=== PATIENT | female | born 1955 | race Caucasian/White ===

== ENCOUNTER 2019-11-26 15:23 | Outpatient (CLI) | payer MEDICAID, SELFPAY ==
--- NOTE | 2019-11-26 15:30 | MM_ITS ---
WS: [id number] BILATERAL DIGITAL SCREENING MAMMOGRAPHY WITH CAD CLINICAL INFORMATION: screening HISTORY: Screening mammogram. No current complaints. COMPARISON: June 11, 2017 TECHNIQUE: Bilateral CC and MLO views. FINDINGS: The breasts are composed of heterogeneous fibroglandular density tissue, which can limit the detectio n of small underlying mass lesions. No suspicious mass, asymmetry, calcifications, or architectural d istortion. No evidence of malignancy. Stable benign punctate and lucent centered calcifications. MM/[place] [id number] IMPRESSION: BI-RADS: 2-Benign FOLLOW UP: 1 Year Follow-up Recommend return to annual screening mammography.
== END 2019-11-26 15:24 | disposition home or self-care (01) ==
LOC: RADSHAW 15:28
PROVIDERS: PCP Family Medicine; Visit Provider Obstetrics & Gynecology
DX: Z12.31 Encounter for screening mammogram for malignant neoplasm of breast (principal)
CPT/HCPCS: 77067

== ENCOUNTER 2020-04-14 15:26 | Outpatient (CLI) | payer MEDICARE, MEDICAID, SELFPAY ==
--- NOTE | 2020-04-14 | XR_ITS ---
WS: [id number] Bone mineral density performed on a [employer], 04/14/2020 Clinical data: POST MENOPAUSE Findings: The distal left radius measured bone mineral density 1.000 g/sq cm for a young adult score of 1.4 Agnieszka surement of the left hip reveals a bone mineral density of 0.895 g/cm2 with a young adult T score of -0.9. Measurement of the right hip reveals the bone mineral density of 0.785 g/cm2 for young adult T score of -1.8. XR/XR DEXA axial skeleton* [id number] Impression: 1. Normal bone mineral density of the distal left radius. 2. Normal left hip bone mineral density. 3. Osteopenia of the right hip.
== END 2020-04-14 15:27 | disposition home or self-care (01) ==
PROVIDERS: PCP Family Medicine; Visit Provider Nurse Practitioner Family
DX: Z78.0 Asymptomatic menopausal state (principal); M85.88 Other specified disorders of bone density and structure, other site
CPT/HCPCS: 77080

== ENCOUNTER 2020-06-21 12:06 | Observation (INO) | payer MEDICARE, MEDICAID, SELFPAY ==
[2020-06-21] VITALS (9 sets, daily range): BP systolic 120–148; BP diastolic 66–80; PULSE 58–67; RESP 16–20; TEMP 36.9–37.1; O2SAT 93–96; BMI 40.8
--- NOTE | 2020-06-21 12:42 | XRR_ITS ---
PROCEDURE INFORMATION: Exam: XR Chest, 1 View Exam date and time: 06/21/2020 1:06 PM Age: 64 years old Clinical indication: Chest pain; Type not specified; Additional info: Cp TECHNIQUE: Imaging protocol: XR of the chest Views: 1 view. COMPARISON: [facility] Chest 2 views 07/21/2018 11:44 AM FINDINGS: Lungs: There is stable mild interstitial prominence and hyperventilation consistent with COPD. Pleural space: Unremarkable. No pleural effusion. No pneumothorax. Heart/Mediastinum: There is stable mild cardiomegaly. Bones/joints: There are degenerative changes of the thoracic spine. No fracture. XR/XR chest 1V portable [id number] IMPRESSION: 1. Stable mild cardiomegaly and COPD. 2. No acute findings and no change from prior x-ray.
--- NOTE | 2020-06-21 12:42 | ECG_ITS ---
[facility] Test Date: 2020-06-21 Pat Name: Megan Botello Department: Room: Gender: Female Pot Puncher: : 1955 Requested By: Hailey Fletcher I Order Number: [id number] [place] MD: Yousif Wilburn M.D. Measurements Intervals [place] Rate: 61 P: 32 TN: 194 QRS: 0 QRSD: 97 T: 12 QT: 409 QTc: 412 Interpretive Statements SINUS RHYTHM Compared to ECG 07/13/2018 01:02:53 Myocardial infarct finding no longer present Electronically Signed On 06-21-2020 21:37:47 ORCHARD SPRAYER by Yousif Wilburn M.D. [email or web address]/store/[id number] f
[2020-06-21 12:59] LABS: Basophils # 0.1 10^3/uL (0.0-0.1); Basophils % 0.9 %; Eosinophils # 0.3 10^3/uL (0.0-0.8); Eosinophils % 3.4 %; Hematocrit 48.1 % (37.0-47.0); Hemoglobin 14.9 g/dL (11.5-15.3); Lymphocytes # 2.7 10^3/uL (0.8-4.8); Lymphocytes % 36.2 %; Mean Corpuscular Hemoglobin 31.2 pg (28.0-34.0); Mean Corpuscular Volume 100.6 fL (81-99); Mean Platelet Volume 10.5 fL (7.4-10.4); Monocytes # 0.7 10^3/uL (0.2-0.9); Monocytes % 8.8 %; Neutrophils # 3.78 10^3/uL (1.8-7.7); Neutrophils % 50.2 %; Nucleated Red Blood Cells % 0.4 %; Platelet Count 320 10^3/cmm (130-400); Red Blood Count 4.78 10^6/uL (4.1-5.3); Red Cell Distribution Width 14.2 % (12.1-15.1); White Blood Count 7.5 10^3/uL (4.0-10.0)
[2020-06-21] MEDS: ondansetron 2 mg/ML SDV 2 mL 4 MG IVP (13:14)
[2020-06-21] MEDS: aspirin 81 mg Chew Tablet 324 MG PO (13:14)
[2020-06-21 13:20] LABS: INR 1.66 (0.8-1.2)
[2020-06-21 13:28] LABS: Troponin(5th) Baseline 13 ng/L (0-10)
[2020-06-21 13:36] LABS: Alanine Aminotransferase 37 U/L (0-33); Albumin Level 3.6 g/dL (3.5-5.2); Alkaline Phosphatase 68 IU/L (35-105); Blood Urea Nitrogen 15 mg/dL (8-23); Calcium 8.9 mg/dL (8.5-10.5); Carbon Dioxide 25 mmol/L (22-29); Chloride 101 mmol/L (98-107); Creatinine Clr Calc Pharmacy 90.1837; Globulin 3.7 g/dL (1.3-4.6); Glucose 156 mg/dL (65-115); Lipase 22 U/L (13-60); NT Pro B Type Natriuretic Pept 118 pg/mL (0-125); Osmolality Calculated 288 mOsm/kg (285-295); Sodium 137 mmol/L (136-145); Total Bilirubin 0.3 mg/dL (0.15-1.2); Total Protein 7.3 g/dL (6.6-8.7)
--- NOTE | 2020-06-21 13:36 | W.ED.CHESTPA ---
HPI - Chest Pain General: Chief Complaint: Chest Pain Stated Complaint: CP Time Seen by Provider: 06/21/20 12:18 Source: patient and family (grand daughter) Mode of arrival: ambulatory Limitations: no limitations History of Present Illness: HPI narrative: The patient is a 64-year-old female who was doing chores and cooking at home when she developed a sudden onset of chest pain described as a squeezing sensation. She said it felt like her bra was squeezing her too tightly window she was not wearing her bra. Pain radiated to both jaws, neck, back between her shoulder blades. Symptoms have since resolved but she still has some nausea. She also had diaphoresis. Also had headache. She did not take any medicine and the pain resolved spontaneously. She is here to be evaluated. MD complaint: chest pain Onset (ago): hour(s) (1) Timing of current episode: now resolved Prior episodes: Yes Onset: during exertion Pain location: other (light a tight band round her chest) Pain radiation: back, neck and jaw/teeth Severity: severe Quality: tightness Relieving factors: rest Exacerbating factors: nothing Associated symptoms: Reports diaphoresis, dyspnea and nausea; Deny abdominal pain, fever(s), leg edema, palpitations, sense of impending doom, syncope or vomiting Treatment prior to arrival: none Review of Systems General: Reports: 10 or more systems reviewed and unremarkable except in HPI and below Const: Reports: diaphoresis; Denies: fever(s) Eyes: Denies: change in vision or blurry vision ENMT: Denies: throat pain, enlarged tonsils, odynophagia, hoarseness, mouth pain or swelling of lips/tongue Card: Denies: palpitations or syncope Resp: Reports: dyspnea GI: Reports: nausea; Denies: abdominal pain or vomiting : Denies: flank pain, difficulty voiding, dysuria, urinary frequency, urinary urgency or urinary hesitancy Musc: Denies: neck pain, back pain or extremity swelling Skin/Breast: Denies: rash, pruritus or erythema Neuro: Denies: headache(s), numbness in extremities or weakness in extremities Endo: Denies: polyuria, polydipsia or tired all the time [facility] ED PFSH: Medical History (Updated 06/21/20 @ 23:07 by Hailey Fletcher MD, [facility] [place]) Anticoagulation adequate with anticoagulant therapy Xarelto Atrial fibrillation Diabetes mellitus Dyslipidemia Essential hypertension No pertinent past medical history Seizures Statin intolerance Surgical History (Reviewed 06/21/20 @ 13:43 by Hailey Fletcher MD, [facility] [place]) History of exploratory laparotomy Exploratory laparotomy via vertical midline supraumbilical incision in December 2015 in [facility]. She states that she was not feeling well and was admitted to the hospital and underwent extensive surgery including hernia repair, cholecystectomy, resection of pancreas, splenectomy and resection of part of her bowel with reanastomosis. After surgery she developed a large ventral hernia over surgical incision. She then had this corrected in 2018. S/P appendectomy Done at time of open hysterectomy in 2004 S/P hernia repair Had a large postoperative hernia on her abdomen after her colon surgery in 2016. She states that this was repaired with a large mesh and extensive reconstruction performed in 2018 by general surgery in [place], [place]. She was told by the surgeons that she has extensive adhesions inside her abdomen. S/P hysterectomy with oophorectomy 08/2004--exploratory laparotomy, total abdominal hysterectomy, bilateral salpingo-oophorectomy and appendectomy-- Performed by Dr Layton in [place], [place]. Due to enlarged ovaries per patient. Patient reports that no cancer was noted. --Operative reports are not present however a letter to Dr. Rhoades updating him with findings of surgery was noted. It has been scanned into the chart. S/P knee surgery 1999-Performed by Dr Chen at [facility] in [place], [place] S/P laparoscopy x 2 S/P shoulder surgery 1981- Performed in [place], [place], right shoulder Family History (Reviewed 06/21/20 @ 13:43 by Hailey Fletcher MD, [facility] [place]) Mother Diabetes Heart disease Hypertension Stroke Father Hyperlipidemia Heart disease Hypertension Thyroid condition Grandfather Heart disease paternal Hypertension paternal Sister Breast cancer Diagnosed in her late 40s Grandmother Colon cancer Maternal, diagnosed at age 80 Denies family history of Ovarian cancer Social History (Reviewed 06/21/20 @ 13:43 by Hailey Fletcher MD, [facility] [place]) Smoking and tobacco status: former smoker Alcohol intake: current Physical Exam Const: COMMON NORMALS: no acute distress, average body habitus, patient oriented x3, no limitations, healthy appearing, alert and well nourished HENMT: COMMON NORMALS: normocephalic, atraumatic and moist oral mucous membranes HEAD & SCALP: normocephalic and atraumatic Neck/C-Spine: COMMON NORMALS: no meningeal signs and no JVD Chest: COMMONS NORMALS: normal inspection of the chest and normal palpation of entire chest wall Resp: COMMON NORMALS: normal respiratory effort, No retractions, No use of accessory muscles, clear to auscultation bilaterally and percussion normal AUSCULTATION: clear to auscultation bilaterally PERCUSSION: percussion normal Cardio: COMMON NORMALS: no JVD, regular rate, regular rhythm, S1 normal heart sound present, S2 normal heart sound present, No gallops present (Cardio), No clicks present (Cardio), No murmurs present (Cardio), No rub (Cardio) and Peripheral pulses 2+ throughout RATE: regular rate RHYTHM: regular rhythm HEART SOUNDS: S1 normal heart sound present and S2 normal heart sound present PERIPHERAL PULSES: Peripheral pulses 2+ throughout GI: COMMON NORMALS: Normal to inspection, nondistended, normoactive bowel sounds present, Soft to palpation, No hepatosplenomegaly present, no masses and no bruits PALPATION: Yes Soft to palpation, Yes Tenderness to palpation present (GI) (epigastric) and Yes No hepatosplenomegaly present Extremity: COMMON NORMALS: normal to inspection, full ROM, capillary refill normal, no calf tenderness and no pedal edema Neuro: COMMON NORMALS: patient oriented x3 SENSORIUM/ORIENTATION: Yes alert MENINGEAL SIGNS: Yes no meningeal signs Skin: COMMON NORMALS: no rashes or lesions noted, no wounds, turgor normal, no jaundice, no petechiae and no mottling GENERAL SKIN EXAM: no rashes or lesions noted and turgor normal Course ED course: Patient who presents to the ED with chest pain that is concerning for unstable angina vs ACS. Cardiac enzymes only mildly elevated, however she is high risk and will be admitted for a PCI. I discussed her lab, imaging findings, concerns, and discussion with registered mail clerk with her. Advised that she will be admitted for a PCI and she voiced understanding and is in agreement with the plan. Consultations: Consultation #1: Discussed the patient with her registered mail clerk, Dr. Ford. He will evaluated the patient's chart and the patient and will advise further. Spoke with him at 1728 again and he advised admission overnight for an angiogram in the morning to rule out unstable angina Time: 17:00 Vital Signs: Vital signs: Vital Signs Temperature 98.4 F 06/21/20 22:52 Pulse Rate 65 06/21/20 22:52 Respiratory Rate 16 06/21/20 22:52 Blood Pressure 120/67 06/21/20 22:52 Pulse Oximetry 94 06/21/20 22:52 MDM - Chest Pain MDM Narrative: Medical decision making narrative: 64 year old female with chest pain and her symptoms are concerning. HEART score is 7, which is a high score giving her up to a 65% risk of a MACE in the next 6 weeks. Because of this she is admitted under the service of cardiology for a PCI in the morning. Medical Records: Attestation: I reviewed the patient's medical records. Lab Data: Attestation: I reviewed the patient's lab results. Labs: Lab Results 06/21/20 06/21/20 06/21/20 Range/Units 12:30 12:30 12:30 WBC 7.5 (4.0-10.0) 10^3/ uL RBC 4.78 (4.1-5.3) 10^6/u L Hgb 14.9 (11.5-15.3) g/dL Hct 48.1 H (37.0-47.0) % MCV 100.6 H (81-99) fL MCH 31.2 (28.0-34.0) pg MCHC 31.0 (30.0-36.0) g/dL RDW 14.2 (12.1-15.1) % Plt Count 320 (130-400) 10^3/c mm MPV 10.5 H (7.4-10.4) fL Neut % (Auto) 50.2 % Lymph % (Auto) 36.2 % [place] % (Auto) 8.8 % Eos % (Auto) 3.4 % Baso % (Auto) 0.9 % Neut # (Auto) 3.78 (1.8-7.7) 10^3/u L Lymph # (Auto) 2.7 (0.8-4.8) 10^3/u L [place] # (Auto) 0.7 (0.2-0.9) 10^3/u L Eos # (Auto) 0.3 (0.0-0.8) 10^3/u L Baso # (Auto) 0.1 (0.0-0.1) 10^3/u L Nucleated RBC % (a uto) 0.4 % Nucleated RBCs # 0.0 /100WBC PT 20.20 H (12.1-14.9) SECO NDS INR 1.66 H (0.8-1.2) Sodium 137 (136-145) mmol/L Potassium 3.9 (3.5-5.1) mmol/L Chloride 101 (98-107) mmol/L Carbon Dioxide 25 (22-29) mmol/L Anion Gap 14.9 (5-19) BUN 15 (8-23) mg/dL Creatinine 0.7 (0.5-0.9) mg/dL GFR Calculation 84.0 L (90-130) mL/min Glucose 156 H (65-115) mg/dL Calculated Osmolal ity 288 (285-295) mOsm/k g Calcium 8.9 (8.5-10.5) mg/dL Total Bilirubin 0.3 (0.15-1.2) mg/dL AST 32 (0-32) U/L ALT 37 H (0-33) U/L Alkaline Phosphata se 68 (35-105) IU/L Troponin T Baselin e (0-10) ng/L Troponin T 120 Min algaaciq (0-10) ng/L Delta Troponin T (0-10) ABS# NT-Pro-B Natriuret Pep 118 (0-125) pg/mL Total Protein 7.3 (6.6-8.7) g/dL Albumin 3.6 (3.5-5.2) g/dL Globulin 3.7 (1.3-4.6) g/dL Lipase 22 (13-60) U/L 06/21/20 06/21/20 Range/Units 12:30 14:43 WBC (4.0-10.0) 10^3/ uL RBC (4.1-5.3) 10^6/u L Hgb (11.5-15.3) g/dL Hct (37.0-47.0) % MCV (81-99) fL MCH (28.0-34.0) pg MCHC (30.0-36.0) g/dL RDW (12.1-15.1) % Plt Count (130-400) 10^3/c mm MPV (7.4-10.4) fL Neut % (Auto) % Lymph % (Auto) % [place] % (Auto) % Eos % (Auto) % Baso % (Auto) % Neut # (Auto) (1.8-7.7) 10^3/u L Lymph # (Auto) (0.8-4.8) 10^3/u L [place] # (Auto) (0.2-0.9) 10^3/u L Eos # (Auto) (0.0-0.8) 10^3/u L Baso # (Auto) (0.0-0.1) 10^3/u L Nucleated RBC % (a uto) % Nucleated RBCs # /100WBC PT (12.1-14.9) SECO NDS INR (0.8-1.2) Sodium (136-145) mmol/L Potassium (3.5-5.1) mmol/L Chloride (98-107) mmol/L Carbon Dioxide (22-29) mmol/L Anion Gap (5-19) BUN (8-23) mg/dL Creatinine (0.5-0.9) mg/dL GFR Calculation (90-130) mL/min Glucose (65-115) mg/dL Calculated Osmolal ity (285-295) mOsm/k g Calcium (8.5-10.5) mg/dL Total Bilirubin (0.15-1.2) mg/dL AST (0-32) U/L ALT (0-33) U/L Alkaline Phosphata se (35-105) IU/L Troponin T Baselin e 13 H (0-10) ng/L Troponin T 120 Min algaaciq 13.84 H (0-10) ng/L Delta Troponin T 0.84 (0-10) ABS# NT-Pro-B Natriuret Pep (0-125) pg/mL Total Protein (6.6-8.7) g/dL Albumin (3.5-5.2) g/dL Globulin (1.3-4.6) g/dL Lipase (13-60) U/L Imaging Data^: CXR: Radiologist's impression: [address] [address] XRay Report Signed Patient: Megan Botello #: [id number] : [facility]#:[id number] Age/Sex: 64 / FADM Date: 06/21/20 Loc: ERRoom/Bed: Attending Dr: Ordering Provider/Ordering MD: Hailey Fletcher MD, [facility] [place] Date of Service: 06/21/20 Procedure(s): XR chest 1V portable [id number] Accession Number(s): [id number] Report Number: [id number] PROCEDURE INFORMATION: Exam: XR Chest, 1 View Exam date and time: 06/21/2020 1:06 PM Age: 64 years old Clinical indication: Chest pain; Type not specified; Additional info: Cp TECHNIQUE: Imaging protocol: XR of the chest Views: 1 view. COMPARISON: [facility] Chest 2 views 07/21/2018 11:44 AM FINDINGS: Lungs: There is stable mild interstitial prominence and hyperventilation consistent with COPD. Pleural space: Unremarkable. No pleural effusion. No pneumothorax. Heart/Mediastinum: There is stable mild cardiomegaly. Bones/joints: There are degenerative changes of the thoracic spine. No fracture. XR/XR chest 1V portable [id number] IMPRESSION: 1. Stable mild cardiomegaly and COPD. 2. No acute findings and no change from prior x-ray. Dictated By:Kalyan Moore MD Signed By:Kalyan Moore MDSigned Date/Time:06/21/209 DD/ 1448 EKG Data^: EKG 1: Attestation: I personally reviewed and interpreted this EKG as follows: EKG interpretation date: 06/21/20 EKG interpretation time: 12:16 Prior EKG tracings: not available for review Interpretation: Normal sinus rhythm. Heart rate [address] changes. Normal axis. EKG 2: Attestation: I personally reviewed and interpreted this EKG as follows: EKG interpretation date: 06/21/20 EKG interpretation time: 15:45 Prior EKG tracings: available for review Interpretation: Sinus bradycardia. HR 56bpm Normal axis No ST changes. EKG 3: Attestation: I personally reviewed and interpreted this EKG as follows: EKG interpretation date: 06/21/20 EKG interpretation time: 18:57 Prior EKG tracings: available for review Interpretation: sinus bradycardia. HR [address] changes. Normal axis. unchanged from earlier. Discharge Plan Discharge Patient Disposition: Placed in Observation Admit Provider: Darion Ford Clinical Impression: Chest pain, Unstable angina pectoris Condition: Stable Discharge Orders: Discharge ED (Routine); Ordered 06/21/20 Ordered By: Hailey Fletcher Coding Level of Care Code ED Car Salesperson for Chg Fwd Exam Comprehensive
[2020-06-21 13:38] LABS: Anion Gap 14.9 (5-19); Aspartate Amino Transferase 32 U/L (0-32); Potassium 3.9 mmol/L (3.5-5.1)
--- NOTE | 2020-06-21 14:42 | ECG_ITS ---
[facility] Test Date: 2020-06-21 Pat Name: Megan Botello Department: Room: Gender: Female Technical Sme: : 1955 Requested By: Hailey Fletcher I Order Number: [id number] [place] MD: Yousif Wilburn M.D. Measurements Intervals [place] Rate: 92 P: 62 ID: 160 QRS: -40 QRSD: 88 T: 10 QT: 356 QTc: 441 Interpretive Statements SINUS RHYTHM WITH FREQUENT ECTOPIC PREMATURE COMPLEXES LEFT AXIS DEVIATION [QRS AXIS < -30] PATTERN CONSISTENT WITH PULMONARY DISEASE VOLTAGE CRITERIA FOR LVH [MEETS CRITERIA IN ONE OF: R(aVL), S(V1), R(V5), R(V5/V6)+S(V1)] Compared to ECG 06/21/2020 12:12:26 Left-axis deviation now present Left ventricular hypertrophy now present Electronically Signed On 06-21-2020 21:47:12 MESSAGE CLERK by Yousif Wilburn M.D. [id number]
[2020-06-21 15:29] LABS: Troponin 5 2HR 13.84 ng/L (0-10); Troponin 5 2HR Delta 0.84 ABS# (0-10)
--- NOTE | 2020-06-21 18:01 | PC.NURSE ---
patient was to be discharged but will be admitted ti [facility]
--- NOTE | 2020-06-21 18:42 | ECG_ITS ---
[facility] Test Date: 2020-06-21 Pat Name: Megan Botello Department: Room: Gender: Female Dog Track Kennel Manager: : 1955 Requested By: Hailey Fletcher I Order Number: [id number] [place] MD: Yousif Wilburn M.D. Measurements Intervals [place] Rate: 56 P: 20 AR: 193 QRS: -8 QRSD: 110 T: 8 QT: 422 QTc: 410 Interpretive Statements SINUS BRADYCARDIA POSSIBLE LEFT ATRIAL ENLARGEMENT [-0.1mV P WAVE IN V1/V2] POSSIBLE LEFT VENTRICULAR HYPERTROPHY [VOLTAGE CRITERIA PLUS LAE OR QRS WIDENING] Compared to ECG 06/21/2020 13:21:16 Sinus rhythm no longer present Left-axis deviation no longer present Electronically Signed On 06-21-2020 21:49:16 MODELING AGENT by Yousif Wilburn M.D. [id number]
--- NOTE | 2020-06-21 20:15 | PM.HP ---
Providers/Chief Complaint Admitting Physician: Darion Ford MD/Cardiology Primary Care Provider: Peña Basilio MD Chief Complaint: CP History of Present Illness Megan Botello is a 64 year old female with past medical history of hypertension, atrial fibrillation on Xarelto presented to the emergency room with severe substernal chest discomfort that lasted on and off for about 1 hour. She said she was cooking in the kitchen when she started noticing substernal pressure that radiated to the jaw and the teeth. She got concerned and called her granddaughter who took her to the hospital. In the emergency room her troponins were negative. EKG did not show significant ischemic changes. According to patient she has been having on and off chest discomfort for the last 1 to 2 months. This has worsened over time. Review of Systems Narrative: CONSTITUTIONAL: No fever chills weight loss or gain or night sweats. [] HEENT: Normocephalic, atraumatic.[] RESPIRATORY: No cough, sputum, hemoptysis or wheezing.[] CARDIOVASCULAR: Has shortness of breath, chest pain, no PND, orthopnea, lower extremity edema, presyncope or syncope. [] GI: no nausea vomiting diarrhea. [] SHIRT CLOSER: No numbness, tingling, weakness or loss of function in any part of the body. [] MUSCULOSKELETAL: No knee or joint pain or rashes. [] Medications/Allergies Home Medications Medication Instructions Recorded Confirmed Last Taken Type black cohosh 40 mg tablet 40 mg PO QAM 10/21/19 06/21/20 06/21/20 History calcium carbonate 333 mg-magnesium See Rx Instructions .ROUTE .COMPLEX 10/21/19 06/21/20 06/21/20 History oxide 133 mg-zinc gluc 5 mg tablet coenzyme Q10 100 mg capsule 100 mg PO QAM 10/21/19 06/21/20 06/21/20 History digoxin 250 mcg (0.25 mg) tablet 250 mcg PO BEDTIME 10/21/19 06/21/20 06/20/20 History metformin 500 mg tablet,extended 1,000 mg PO QAM tab 10/21/19 06/21/20 06/21/20 History release 24 hr turmeric root extract 500 mg 500 mg PO BEDTIME 10/21/19 06/21/20 06/20/20 History capsule vitamin A 8,000 unit capsule 8,000 unit PO QAM 10/21/19 06/21/20 06/21/20 History vitamin B complex 1 tab PO QAM 10/21/19 06/21/20 06/21/20 History levetiracetam 500 mg tablet 500 mg PO BID 11/06/19 06/21/20 06/21/20 History hydrocortisone 1 % topical cream 1 applic TOPICAL BID PRN 06/13/20 06/21/20 Unknown History triamcinolone acetonide 0.1 % 1 applic TOPICAL BID #80 g 06/13/20 06/21/20 Unknown Rx topical ointment Cinnamon 500 mg PO QAM 06/21/20 06/21/20 06/21/20 History Soolantra 1 applic TOPICAL QAM 06/21/20 06/21/20 06/21/20 History Vitamin C 500 mg PO QAM 06/21/20 06/21/20 06/21/20 History Xarelto 20 mg PO QPM 06/21/20 06/21/20 06/20/20 History bilberry 150 mg PO QPM 06/21/20 06/21/20 06/20/20 History hydralazine See Rx Instructions .ROUTE .COMPLEX 06/21/20 06/21/20 06/21/20 11:45 History 100 mg hydrochlorothiazide 25 mg PO QAM 06/21/20 06/21/20 06/21/20 History losartan 100 mg PO QAM 06/21/20 06/21/20 06/21/20 History metoprolol tartrate See Rx Instructions .ROUTE .COMPLEX 06/21/20 06/21/20 06/21/20 History 25 mg nitroglycerin 0.3 mg SUBLINGUAL Q5M PRN #30 tab 06/21/20 Unknown Rx omega-3 acid ethyl esters 2 g PO BID 06/21/20 06/21/20 06/21/20 History Allergies Allergy/AdvReac Type Severity Reaction Status Date / Time amlodipine Allergy rash Verified 06/21/20 13:55 clindamycin Allergy rash Verified 06/21/20 13:55 latex Allergy Rash/itchin Verified 06/21/20 13:55 g morphine Allergy Rash/itchin Verified 06/21/20 13:55 g diltiazem AdvReac Generalized Verified 06/21/20 13:55 edema hydromorphone AdvReac itching Verified 06/21/20 13:55 PFSH Acute PFSH: Medical History Anticoagulation adequate with anticoagulant therapy Xarelto Atrial fibrillation Diabetes mellitus Dyslipidemia Essential hypertension No pertinent past medical history Seizures Statin intolerance Surgical History History of exploratory laparotomy Exploratory laparotomy via vertical midline supraumbilical incision in December 2015 in [facility]. She states that she was not feeling well and was admitted to the hospital and underwent extensive surgery including hernia repair, cholecystectomy, resection of pancreas, splenectomy and resection of part of her bowel with reanastomosis. After surgery she developed a large ventral hernia over surgical incision. She then had this corrected in 2017. S/P appendectomy Done at time of open hysterectomy in 2004 S/P hernia repair Had a large postoperative hernia on her abdomen after her colon surgery in 2016. She states that this was repaired with a large mesh and extensive reconstruction performed in 2018 by general surgery in [place], [place]. She was told by the surgeons that she has extensive adhesions inside her abdomen. S/P hysterectomy with oophorectomy 08/2004--exploratory laparotomy, total abdominal hysterectomy, bilateral salpingo-oophorectomy and appendectomy-- Performed by Dr Layton in [place], [place]. Due to enlarged ovaries per patient. Patient reports that no cancer was noted. --Operative reports are not present however a letter to Dr. Rhoades updating him with findings of surgery was noted. It has been scanned into the chart. S/P knee surgery 1999-Performed by Dr Chen at [facility] in [place], [place] S/P laparoscopy x 2 S/P shoulder surgery 1981- Performed in [place], [place], right shoulder Family History Mother Diabetes Heart disease Hypertension Stroke Father Hyperlipidemia Heart disease Hypertension Thyroid condition Grandfather Heart disease paternal Hypertension paternal Sister Breast cancer Diagnosed in her late 40s Grandmother Colon cancer Maternal, diagnosed at age 80 Denies family history of Ovarian cancer Social History Smoking and tobacco status: former smoker Alcohol intake: current Vitals/I&O/Wt Last Vital Signs Temp 98.7 F 06/21/20 12:14 Pulse 60 06/21/20 18:32 Resp 20 H 06/21/20 18:32 BP 120/73 06/21/20 18:32 Pulse Ox 94 06/21/20 18:32 Weight last 48 hrs Weight 253 lb Physical Exam Narrative: EXAM NARRATIVE: GENERAL: Patient is alert, awake and oriented x3. [] NECK: No jugular vein distension. [] HEENT: No cyanosis. No icterus. No pallor. [] HEART: Regular S1 and S2. No murmur, rub or gallop. [] LUNGS: Clear to auscultate bilaterally. [] ABDOMEN: Soft, nontender and nondistended. Positive bowel sounds. No guarding, rebound or tenderness. [] CENTRAL NERVOUS SYSTEM: Grossly nonfocal. [] EXTREMITIES: Lower extremities with no edema bilaterally. Pulses palpable in the lower extremities, both dorsalis pedis and posterior tibial. [] Data : 06/21/20 12:30 06/21/20 12:30 A&P Assessment and plan (1) Unstable angina pectoris: Status: Acute (2) Essential hypertension: Status: Acute (3) Dyslipidemia: Status: Acute (4) Diabetes mellitus: Status: Acute (5) Atrial fibrillation: Status: Acute Patient has been having worsening chest pain symptoms over the last 1 to 2 months. Presented to the emergency room with severe substernal typical chest pain. It radiated to the jaw. Given her typical chest pain symptoms and risk factors, we will proceed with coronary angiogram with possible percutaneous coronary intervention. N.p.o. after midnight. I had a detailed discussion about risks and benefits of the procedure. Risks including bleeding, infection, abnormal kidney function, abnormal heart rhythm, heart attack, stroke or have been described. Patient understands the risks and benefits and wants to proceed with the procedure. Hold Xarelto till procedure. Continue aspirin. Admit to CSU Further plan will depend on coronary angiogram findings. Attestations Medical Necessity Statement*: Care expected to cross 2 midnights. Patient presenting with unstable angina awaiting coronary angiogram. Coding Level of Care Code Acute Licensed Tax Consultant for Alise Navarrete Diagnoses Unstable angina pectoris I20.0 Essential hypertension I10 Dyslipidemia E78.5 Diabetes mellitus E11.9 Atrial fibrillation I48.91
[2020-06-22] VITALS (33 sets, daily range): BP systolic 109–142; BP diastolic 59–81; PULSE 56–77; RESP 13–25; TEMP 36.6; O2SAT 90–95
[2020-06-22] MEDS: digoxin 250 mcg Tablet PO (00:28)
[2020-06-22] MEDS: levETIRAcetam 500 mg Tablet PO ×2 (00:29→09:02)
[2020-06-22] MEDS: hyDRALAzine 50 mg Tablet PO (00:31)
--- NOTE | 2020-06-22 03:09 | NUR.SHIFT ---
NURSE NOTE; PT ARRIVED TO UNIT AT APPROXIMATELY 2300 THIS SHIFT. PT IS ALERT AND ORIENTED X4, MOVES ALL EXTREMITIES AND FOLLOWS COMMANDS. ALL VS AND ASSESSMENTS CHARTED. PT DENIES PAIN. NO DISTRESS NOTED AT THIS TIME.
[2020-06-22] MEDS: losartan 50 mg Tablet 100 MG PO (05:40)
[2020-06-22] MEDS: metoprolol tartrate 25 mg Tablet PEG-TUBE (05:41)
[2020-06-22] MEDS: hydroCHLOROthiazide 25 mg Tablet PO (05:41)
[2020-06-22] MEDS: hyDRALAzine 50 mg Tablet 100 MG PO (05:41)
--- NOTE | 2020-06-22 06:37 | XACV_ITS ---
Exam Room: [facility] Ht: 168 cm Wt: 115 kg BSA: 2.37 m2 Gender: Female : 1955 Exam Priority: Routine Procedure(s): Procedure Description: Diagnostic procedure Procedure Description: Left Heart Catheterization Procedure Description: Left ventriculography Procedure Description: Coronary Angiography Diagnostic Cath Status: Urgent Diagnostic Findings * No significant disease noted in the Left Main, LAD, Circumflex, or RCA coronary arteries. Left main artery: Large caliber and short. Mild luminal irregularities are seen. LAD: Large vessel. It gives rise to a large diagonal branch. No significant stenosis is seen. Left circumflex artery: It gives rise to 2 large sized OM branches. Large sized vessel. No significant stenosis is seen. RCA: Arises from right coronary cusp. No significant stenosis is seen.. * Slow flow noted in all vessels. Conclusions 1. Normal left ventricular systolic function. Ejection fraction of 60%. Recommendations * Continue current medical management and risk factor modification. * Will add Imdur if continues having chest pain. Interventional RX Recommendation: medical therapy and/or counseling Diagnostic RX Recommendation: medical therapy and/or counseling Ventriculography Ejection Fraction: 60.0 % Pressures Phase:Rest AO : 90 / 56 ( 72 ) @ 1:53:00 AM 94 / 45 ( 63 ) @ 2:01:00 AM 97 / 45 ( 64 ) @ 2:01:00 AM LV : 93 / -2 / @ 2:00:00 AM 99 / -4 / @ 2:01:00 AM 95 / -2 / @ 2:01:00 AM Valves Phase:DefaultPhase AV : 1.0 @ 8:08:47 AM AV Mean Gradient: 0.0 @ 8:08:47 AM Clinical Evaluation EBL: 5mL-10mL Procedural Details Procedure Consent Obtained. Pre-Procedure Time Out. Identified patient by full name and date of as verbalized by the patient/guarantor. Does the consent match the physician's order: Yes. Accurate & Complete Informed Consent: Yes. Inpatient/Outpatient History & Physical on Chart: Yes. If H&P is completed, is and addenduem needed: No. Visualize and Verify Site with Patient/Guarantor: N/A. Relevant Radiology Images available: Yes. The risks, benefits, and alternatives of sedation and/or procedure were discussed by physician. The patient agrees to continue. Procedure started. [facility] Clinical Fraility Score: 2: Well. [employer] Teacher Indications: New Onset Angina. Chest Pain Symptom Assessment: Typical Angina Symptoms. Cardiovascular Instability: No. Correct patient, site and procedure confirmed by cath team. Current diagnosis: Chest Pain. PERRLA. Strong, equal hand roller setter bilaterally. Lungs clear x 5 lobes. IV Site on Arrival: 22 gauge in the left anticubital. IV Fluids: 0.9% NaCl at KVO. 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 Pre Procedural Pulses: bilateral dorsalis pedis was 1+. Pre Procedural Pulses: bilateral dorsalis pedis was 1+. Pre Procedural Pulses: bilateral radial was 2+. Oxygen started at 2liters/min via nasal canula. right groin was prepped with chloroprep then draped in the usual sterile fashion. right radial was prepped with chloroprep then draped in the usual sterile fashion. Physician notified. Baseline sample Acquired. HR: 62 BPM. Patient's family unavailable due to current Covid-19 restrictions. Upon questioning the patient she stated that she did not wish for this nurse or Dr. Ford to discuss the finidings of this procedure with her family. She states that she will call her family at a later time. Equipment: 6F - Radial. ACIST Manifold Kit Model BT 2000. Heparinized Saline (2 units/mL), 1000 mL bag. Cardiac Cath Pack. Physician arrived. Physician scrubbed in. Immediate Pre-Procedure Time Out. Correct Patient: Yes; Correct Procedure: Yes; Correct Site: Yes; Correct Patient Position: Yes; Correct Supplies: Yes; Dried Flammable Prep: Yes; Blood Products Available: N/A. Lidocaine 1% infiltrated to the right radial. Arterial access obtained. A 5 montserratian TIG catheter in over the exchange wire. Catheter redirected to the RCA. Multiple views taken of right coronary artery. A 5 montserratian Angled Pig catheter in over the exchange wire. EDP Sample taken: LV 93/-3,12; HR: 69 BPM; SpO2: 96%. LV gram performed in SCHERER @ 10 mL/second for a total of 30 mL. EDP Sample taken: LV 99/-5,9; HR: 64 BPM; SpO2: 97%. Pullback taken: LV 95/-3,11; AO 94/45(63); Mean: 0mmHg, Peak to Peak: 1mmHg, SEP: 6sec/min; HR: 69 BPM; SpO2: 97%. Catheter removed over the exchange wire. Physician scrubbed out. TR band placed. Hemostasis obtained. Post Procedure: Pulses reassessed and unchanged. PERRLA. Strong, equal hand roller setter bilaterally. No VTE prophylaxis required. Medication's Wasted: Lidocaine 1% = 18 mL. Medication's Wasted: Heparin = 1000 units. Medication's Wasted: Nitro = 49.8 mg. Total IV fluids: 51.3 mL. A TR Band was successful obtaining hemostatsis at the Right Radial artery insertion site. Post-op diagnosis: Non-obstructive CAD. Complications: none. Estimated blood loss: 5mL-10mL. Procedure completed. Patient transferred by wheelchair to 1st floor. Vital chart was stopped. Access Site Site: Right Radial artery Sheath Size: 6 Fr Hemostasis Method: TR Band Hemostasis Success: Successful Procedure Medications Start: 7:35 AM Stop: 7:35 AM Medication: Fentanyl Amount: 50 mcg Route: I.V. Start: 7:46 AM Stop: 7:46 AM Medication: Versed Amount: 1 mg Route: I.V. Start: 7:46 AM Stop: 7:46 AM Medication: Fentanyl Amount: 50 mcg Route: I.V. Start: 7:52 AM Stop: 7:52 AM Medication: Nitrogylcerin Amount: 200 mcg Route: I.A. Start: 7:52 AM Stop: 7:52 AM Medication: Heparin Amount: 5000 units Route: I.V. Start: 7:56 AM Stop: 7:56 AM Medication: Versed Amount: 1 mg Route: I.V. I, the attending physician, have reviewed and verified all procedure medications. Yes, all medications given per verbal order History/Risk Factors Hypertension: Yes Dyslipidemia: Yes Peripheral Arterial Disease (PAD): No Myocardial Infarction (IN): No Obesity: Yes Renal Disease: No Tobacco Use: Former Prior Interventions PCI: No CABG: No Valve Surgery: No Report Signatures Finalized by Darion Ford MD on 07/03/2020 06:13 PM
--- NOTE | 2020-06-22 07:43 | W.PM.OPSUD ---
Surgery/Procedure H&P Update DATE OF PROCEDURE: June 22, 2020 DATE H&P PERFORMED: 06/21/20 H&P UPDATE INFORMATION: I have reviewed H&P completed within last 30 days, I have examined patient prior to procedure and No changes to prior documentation PREOP DIAGNOSIS: Unstable angina PRIMARY INDICATION FOR PROCEDURE: Unstable angina PATIENT REASSESSED PRIOR TO SEDATION, WITH NO CHANGE NOTED: Yes PHYSICAL EXAM: alert, oriented x 3 and clear to auscultation bilaterally AIRWAY EVAL/ANESTHESIA PLAN: ASA II, ASA III, Risks, benefits & alternatives of sedation and/or procedure discussed and Patient agrees to continue as planned
--- NOTE | 2020-06-22 09:26 | PC.CHAP ---
Pastoral Care Encounter/Spiritual Assessment Type of Contact [] Declined assistance specialist visit [] Patient/Family/Request visit [] Outpatient visit [] Follow-up visit [] Physician referral [] Code/Alert [x Routine visit [] Staff referral [] Actively dying [] Patient sleeping [] Family support [] [] Out of room [] Palliative care [] [] Receiving care in room [] Pre-surgical visit [] Trauma [] Long length of stay [] ICU visit [] Other: Relational/Emotional Strength [] Patient feels connected with others/family/visitors/staff [] Distress [] Loneliness/isolation [] Abandonment Spirituality of Patient [x] Person of Ling [] Attends Religion of their Ling [] Believes in Prayer [] Reads Bible or Jewish materials [] There are Spiritual issues to be addressed Flanging Operator Interventions [x] Prayer [x] Active listening [x] Non-anxious presence [x] Spiritual/emotional support [] Crisis/trauma care [] Spiritual counseling [] Bereavement support [] Provided bereavement packet [] Provided Bible/devotional materials [] Provided toy/stuffed animal, coloring book to patient or family member [] Provided Communion [] Anointing/[place] [] Salvation [x] Completed spiritual assessment [] Other: Impact on Illness or Injury [] Angry [] Fearful [] Anxious [] Often cries [] Exhaustion [] Unable to work [] Unable to attend gnosticism [] Unable to walk/stand [] Unable to read [] Unable to drive [] Unable to eat/drink [] Unable to sleep [] Unable to be with family [] Patient intubated [] Other: Summary patient enjoying breakfast after tests Time spent with patient 10 min
--- NOTE | 2020-06-22 11:40 | PM.DCS ---
Discharge Providers Date of Admission: 06/21/20 18:03 Date of Discharge: June 22, 2020 Attending Provider at Admission: Darion Ford M.D Attending Provider at Discharge: Darion Ford M.D Primary Care Provider: Peña Basilio MD Diagnoses at Discharge Discharge Diagnosis (1) Unstable angina pectoris: Status: Resolved Permanent problem details: Chest pain likely secondary to microvascular dysfunction (2) Essential hypertension: Status: Acute (3) Dyslipidemia: Status: Acute (4) Diabetes mellitus: Status: Acute (5) Atrial fibrillation: Status: Acute Reason for Visit Reason for Visit: CP Brief History: 64 year old female with past medical history of hypertension, atrial fibrillation on Xarelto presented to the emergency room with severe substernal chest discomfort that lasted on and off for about 1 hour. She said she was cooking in the kitchen when she started noticing substernal pressure that radiated to the jaw and the teeth. She got concerned and called her granddaughter who took her to the hospital. In the emergency room her troponins were negative. EKG did not show significant ischemic changes. According to patient she had been having on and off chest discomfort for the last 1 to 2 months. This has worsened over time. Plan for left heart cath in the morning. Hospital Course Hospital Course 64 year old female with past medical history of hypertension, atrial fibrillation on Xarelto presented to the emergency room with severe substernal chest discomfort that lasted on and off for about 1 hour. She said she was cooking in the kitchen when she started noticing substernal pressure that radiated to the jaw and the teeth. She got concerned and called her granddaughter who took her to the hospital. In the emergency room her troponins were negative. EKG did not show significant ischemic changes. According to patient she has been having on and off chest discomfort for the last 1 to 2 months. This has worsened over time. Patient underwent left heart cath which revealed no significant coronary artery disease. There was slow flow noted in all vessels. She likely has microvascular dysfunction. If chest pain continues, she will benefit from addition of Imdur. Patient discharged in a stable condition with optimal medical therapy. Physical Exam Narrative: EXAM NARRATIVE: GENERAL: Patient is alert, awake and oriented x3. [] NECK: No jugular vein distension. [] HEENT: No cyanosis. No icterus. No pallor. [] HEART: Regular S1 and S2. No murmur, rub or gallop. [] LUNGS: Clear to auscultate bilaterally. [] ABDOMEN: Soft, nontender and nondistended. Positive bowel sounds. No guarding, rebound or tenderness. [] CENTRAL NERVOUS SYSTEM: Grossly nonfocal. [] EXTREMITIES: Lower extremities with no edema bilaterally. Pulses palpable in the lower extremities, both dorsalis pedis and posterior tibial. [] Discharge Data Data Completed and Pending: Completed Studies During Hospitalization Category Date Time Status XR chest 1V mario [id number] Stat Exams 06/21/20 12:42 Completed Pending at discharge Category Date Time Status PRODUCTION OPERATOR request for service Routin e Exams 06/22/20 06:37 Taken Labs from last 24 hours 06/21/20 06/21/20 06/21/20 19:16 14:43 12:30 WBC RBC Hgb Hct MCV MCH MCHC RDW Plt Count MPV Neut % (Auto) Lymph % (Auto) Carbon % (Auto) Eos % (Auto) Baso % (Auto) Neut # (Auto) Lymph # (Auto) Carbon # (Auto) Eos # (Auto) Baso # (Auto) Nucleated RBC % (a uto) Nucleated RBCs # PT INR Sodium Potassium Chloride Carbon Dioxide Anion Gap BUN Creatinine GFR Calculation Glucose Calculated Osmolal ity Calcium Total Bilirubin AST ALT Alkaline Phosphata se Troponin T Baselin e 13 H Troponin T 120 Min [place] 13.84 H Delta Troponin T 0.84 Troponin T Hi Sens 6Hr 11.70 H Troponin T Hi Sens 6Hr Delta -1.30 L NT-Pro-B Natriuret Pep Total Protein Albumin Globulin Lipase 06/21/20 06/21/20 06/21/20 12:30 12:30 12:30 WBC 7.5 RBC 4.78 Hgb 14.9 Hct 48.1 H MCV 100.6 H MCH 31.2 MCHC 31.0 RDW 14.2 Plt Count 320 MPV 10.5 H Neut % (Auto) 50.2 Lymph % (Auto) 36.2 Carbon % (Auto) 8.8 Eos % (Auto) 3.4 Baso % (Auto) 0.9 Neut # (Auto) 3.78 Lymph # (Auto) 2.7 Carbon # (Auto) 0.7 Eos # (Auto) 0.3 Baso # (Auto) 0.1 Nucleated RBC % (a uto) 0.4 Nucleated RBCs # 0.0 PT 20.20 H INR 1.66 H Sodium 137 Potassium 3.9 Chloride 101 Carbon Dioxide 25 Anion Gap 14.9 BUN 15 Creatinine 0.7 GFR Calculation 84.0 L Glucose 156 H Calculated Osmolal ity 288 Calcium 8.9 Total Bilirubin 0.3 AST 32 ALT 37 H Alkaline Phosphata se 68 Troponin T Baselin e Troponin T 120 Min [place] Delta Troponin T Troponin T Hi Sens 6Hr Troponin T Hi Sens 6Hr Delta NT-Pro-B Natriuret Pep 118 Total Protein 7.3 Albumin 3.6 Globulin 3.7 Lipase 22 Vitals: Last Vital Signs Temp 98 F 06/22/20 04:52 Pulse 66 06/22/20 09:45 Resp 20 H 06/22/20 09:45 BP 117/61 06/22/20 09:45 Pulse Ox 90 06/22/20 09:45 Discharge Plan Discharge Patient Disposition: Home Condition: Stable Prescriptions: New nitroglycerin 0.3 mg tablet, sublingual 0.3 mg sublingual Q5M PRN (Reason: chest pain) Qty: 30 RF: 0 Continued levetiracetam 500 mg tablet 500 mg PO BID RF: 0 digoxin 250 mcg (0.25 mg) tablet 250 mcg PO BEDTIME RF: 0 black cohosh 40 mg tablet 40 mg PO QAM RF: 0 vitamin A 8,000 unit capsule 8,000 unit PO QAM RF: 0 vitamin B complex [B Complex-Vitamin B12] Tablet 1 tab PO QAM RF: 0 turmeric root extract 500 mg capsule 500 mg PO BEDTIME RF: 0 calcium carb-mag ox-zinc gluc 333-133-5 mg tablet See Rx Instructions .ROUTE .COMPLEX RF: 0 coenzyme Q10 [Co Q-10] 100 mg capsule 100 mg PO QAM RF: 0 hydrocortisone 1 % cream 1 applic topical BID PRN (Reason: unknown) RF: 0 triamcinolone acetonide 0.1 % ointment 1 applic topical BID Qty: 80 RF: 0 bilberry 150 mg Capsule 150 mg PO QPM RF: 0 Vitamin C 500 mg Tablet 500 mg PO QAM RF: 0 metoprolol tartrate 25 mg tablet See Rx Instructions .ROUTE .COMPLEX RF: 0 Cinnamon 500 mg Capsule 500 mg PO QAM RF: 0 omega-3 acid ethyl esters 1 gram capsule 2 g PO BID RF: 0 hydralazine 50 mg tablet See Rx Instructions .ROUTE .COMPLEX RF: 0 hydrochlorothiazide 25 mg tablet 25 mg PO QAM RF: 0 losartan 100 mg tablet 100 mg PO QAM RF: 0 Xarelto 20 mg tablet 20 mg PO QPM RF: 0 Soolantra 1 % cream 1 applic TOPICAL QAM RF: 0 Held metformin 500 mg tablet extended release 24 hr 1,000 mg PO QAM RF: 0 Hold Instructions: Resume on 06/24/20. No Action isosorbide mononitrate 30 mg tablet extended release 24 hr 30 mg PO DAILY Qty: 90 RF: 3 garlic 300 mg capsule 1,000 mg PO DAILY RF: 0 vitamin E (dl, acetate) 400 unit capsule 400 unit PO DAILY RF: 0 biotin 10,000 mcg capsule PO RF: 0 folic acid 0.8 mg capsule 0.8 mg PO DAILY RF: 0 multivitamin Tablet 1 tab PO DAILY RF: 0 Discharge Orders: Discharge Order (Routine); Ordered 06/22/20 Ordered By: Darion Ford Referrals: Darion Ford M.D [Physician] - 1 week (Please fiollow-up with Dr. Ford on July 21 at 2:15p.m. If you have any questions or need to reschedule. Please call ) Kori Norman FNP [Nurse Practitioner] - (Please follow-up with Kori Norman on June 30 at 9:30a.m. If you have any questions or need to reschedule. Please call ) Peña Basilio MD [Primary Care Provider] - 1-3 days (Please follow-up with Dr. Basilio on June 24 at 9:30a.m. If have any questions or need to reschedule. Please call ) Discharge Diet: Cardiac Discharge Activity: Resume usual activity Patient Instructions: Left Heart Catheterization (DC), Chest Pain Stoplight, Post Angiogram Home Care Instructions Activity Restrictions/Additional Instructions: Return for any new or worsening symptoms. Follow-up with your primary care provider within 3 days. Follow-up with your inclusion special education teacher as soon as possible. Take the nitroglycerin as needed for chest pain. Please do not lift weight more than 5 pounds for the next 5 days Discharge Attestations Time Spent in Discharge Care*: greater than 30 min Quality Metrics Clinical Quality Measures During this hospital stay, did patient experience: None Coding Level of Care Code Acute Medical Sales Consultant for Alise Fwd Diagnoses Unstable angina pectoris I20.0 Essential hypertension I10 Dyslipidemia E78.5 Diabetes mellitus E11.9 Atrial fibrillation I48.91
== END 2020-06-22 15:02 | disposition home or self-care (01) ==
LOC: ER 17:33 → CSU 23:07
PROVIDERS: Admitting Provider Internal Medicine; Emergency Provider Family Medicine; PCP Family Medicine; Visit Provider Internal Medicine
DX: I20.0 Unstable angina (principal); I10 Essential (primary) hypertension; E78.5 Hyperlipidemia, unspecified; E11.9 Type 2 diabetes mellitus without complications; I48.91 Unspecified atrial fibrillation; Z79.01 Long term (current) use of anticoagulants; Z82.49 Family history of ischemic heart disease and other diseases of the circulatory system; Z83.3 Family history of diabetes mellitus; Z87.891 Personal history of nicotine dependence
CPT/HCPCS: 12345; 36415; 71045; 80053; 83690; 83880; 84484; 85025; 85610; 93005; 93452; 96374; 99282; 99285; C1769; C1887; C1894; G0378; J1644; J2250; J2405; J3010; J3490; J7030; Q9967

== ENCOUNTER → 2020-06-30 10:31 | Outpatient (BNVA) | payer MEDICARE, MEDICAID, SELFPAY | PROVIDERS: PCP Family Medicine; Visit Provider Nurse Practitioner Family | DX: R07.9 Chest pain, unspecified (principal); I25.10 Atherosclerotic heart disease of native coronary artery without angina pectoris | CPT/HCPCS: 80048 ==

== ENCOUNTER 2020-10-14 14:04 | Outpatient (CLI) | payer MEDICARE, MEDICAID, SELFPAY ==
[2020-10-14 15:39] LABS: Basophils # 0.1 10^3/uL (0.0-0.1); Basophils % 0.8 %; Eosinophils # 0.2 10^3/uL (0.0-0.8); Eosinophils % 2.4 %; Hematocrit 46.6 % (37.0-47.0); Lymphocytes # 3.6 10^3/uL (0.8-4.8); Lymphocytes % 36.3 %; Mean Corpuscular HGB Conc 32.2 g/dL (30.0-36.0); Mean Corpuscular Hemoglobin 31.6 pg (28.0-34.0); Mean Corpuscular Volume 98.1 fL (81-99); Mean Platelet Volume 9.9 fL (7.4-10.4); Monocytes # 0.9 10^3/uL (0.2-0.9); Monocytes % 8.7 %; Neutrophils % 51.4 %; Nucleated Red Blood Cells % 0 %; Platelet Count 354 10^3/cmm (130-400); Red Blood Count 4.75 10^6/uL (4.1-5.3); Red Cell Distribution Width 12.9 % (12.1-15.1); White Blood Count 9.9 10^3/uL (4.0-10.0)
[2020-10-14 16:08] LABS: INR 1.42 (0.8-1.2)
[2020-10-14 16:09] LABS: Fibrinogen 493 mg/dL (174-498); Partial Thromboplastin Time 33.5 SECONDS (23.9-36.7)
[2020-10-14 16:37] LABS: Platelet Count 354 10^3/cmm (130-400)
[2020-10-17 13:13] LABS: COMPLEMENT COMPONENT C3C 168 mg/dL (83-193); COMPLEMENT COMPONENT C4C 34 mg/dL (15-57)
[2020-10-17 15:59] LABS: COMPLEMENT, TOTAL (CH50) >60 U/mL (31-60)
[2020-10-18 21:57] LABS: LA-Interp Not Indicated; PTT-LA 40 sec (<=40); Prothrombin Time 57 sec (<=45); Thrombin Time Reflex Negative (Negative)
[2020-10-19 03:57] LABS: Beta 2 Glycoprotein IGA <9 SAU (<=20); Beta 2 Glycoprotein IGG <9 SGU (<=20); Beta 2 Glycoprotein IGM <9 SMU (<=20)
[2020-10-19 13:57] LABS: ANA SCREEN, IFA NEGATIVE (NEGATIVE); CENTROMERE B ANTIBODY <1.0 NEG AI (<1.0 NEG); JO-1 ANTIBODY <1.0 NEG AI (<1.0 NEG); RNP ANTIBODY <1.0 NEG AI (<1.0 NEG); SCL-70 ANTIBODY <1.0 NEG AI (<1.0 NEG); SJOGREN'S ANTIBODY (SS-A) <1.0 NEG AI (<1.0 NEG); SM ANTIBODY <1.0 NEG AI (<1.0 NEG); SS-B <1.0 NEG AI (<1.0 NEG)
[2020-10-20 17:08] LABS: CARDIOLIPIN AB (IGA) <11 APL; CARDIOLIPIN AB (IGG) <14 GPL; CARDIOLIPIN AB (IGM) <12 MPL
[2020-10-20 18:42] LABS: Cryoglobulins Qualitative None Detected (None Detected)
[2020-10-24 22:28] LABS: DNA AB (DS) CRITHIDIA,IFA NEGATIVE (NEGATIVE)
[2020-10-27 15:34] LABS: THYROID PEROXIDASE ANTIBODIES 2 IU/mL (<9)
== END 2020-10-14 14:05 | disposition home or self-care (01) ==
PROVIDERS: PCP Family Medicine; Visit Provider Dermatology
DX: I77.6 Arteritis, unspecified (principal)
CPT/HCPCS: 36415; 82595; 85025; 85049; 85384; 85610; 85613; 85730; 86146; 86147; 86160; 86162; 86235; 86255; 86376

== ENCOUNTER 2020-10-19 11:03 | Outpatient (CLI) | payer MEDICARE, MEDICAID, SELFPAY ==
--- NOTE | 2020-10-19 11:00 | USCV_ITS ---
Megan Botello Age: 64 Gender: F : 1955 Exam Date: 10/19/2020 11:25 Ordering Phys: Darion Ford M.D ([email or web address]) Technologist: DHAVAL Exam Location: [facility] Indication: HISTORY: Patient has history of insufficiency PROCEDURES: Bilateral duplex Venous Insufficiency study of the Deep and Superficial systems was carried out according to normal protocol with the patient in supine positon for deep system and dependent position for the superficial system. FINDINGS: There is no evidence of bilateral deep vein thrombosis. No evidence of superficial thrombosis in the bilateral saphenous system. No evidence of reflux was noted in the bilateral deep venous system. No venous reflux noted in the bilateral small saphenous vein. No venous reflux noted in the RIGHT greater saphenous vein. Venous reflux is demonstrated in the LEFT greater saphenous vein with a spectral Doppler display of greater than 500 milliseconds at the level of the below the knee level. Veins are very deep could be an issue with ablation. CONCLUSIONS No evidence of DVT in the above-mentioned identifiable veins. No significant deep vein reflux were noted on either side. On the left side, significant venous reflux of greater than 500 ms were noted in the below-knee greater saphenous vein segment. The venous segment was measuring 0.38 cm in diameter at a depth of 2.77 cm. No other significant reflux were noted. Dr Yousif Wilburn MD [facility] (Electronically Signed) Final Date: 19 Oct 2020 21:00 S
== END 2020-10-19 11:04 | disposition home or self-care (01) ==
LOC: US 11:06
PROVIDERS: PCP Family Medicine; Visit Provider Internal Medicine
DX: I87.2 Venous insufficiency (chronic) (peripheral) (principal)
CPT/HCPCS: 93970

== ENCOUNTER 2020-12-06 11:50 | Outpatient (CLI) | payer MEDICARE, MEDICAID, SELFPAY ==
--- NOTE | 2020-12-06 11:30 | MM_ITS ---
WS: [id number] BILATERAL DIGITAL SCREENING MAMMOGRAPHY WITH CAD CLINICAL INFORMATION: Z12.39 - Encounter for other screening for malignant neop... HISTORY: Screening mammogram. No current complaints. COMPARISON: November 26, 2019 TECHNIQUE: Bilateral CC and MLO views. FINDINGS: The breasts are composed of heterogeneous fibroglandular density tissue, which can limit the detectio n of small underlying mass lesions. Lucent centered calcifications. Stable bilateral punctate and clu stered calcifications. No suspicious mass, asymmetry, calcifications, or architectural distortion. No evidence of malignancy. MM/[id number] IMPRESSION: BI-RADS: 2-Benign FOLLOW UP: 1 Year Follow-up Recommend return to annual screening mammography.
== END 2020-12-06 11:51 | disposition home or self-care (01) ==
LOC: RADSHAW 11:53
PROVIDERS: PCP Family Medicine; Visit Provider Obstetrics & Gynecology
DX: Z12.31 Encounter for screening mammogram for malignant neoplasm of breast (principal)
CPT/HCPCS: 77067

== ENCOUNTER → 2021-04-19 12:56 | Outpatient (BNVA) | payer MEDICARE, MEDICAID, SELFPAY | PROVIDERS: PCP Family Medicine; Referring Provider Family Medicine; Visit Provider Internal Medicine | DX: E11.59 Type 2 diabetes mellitus with other circulatory complications (principal); Z79.84 Long term (current) use of oral hypoglycemic drugs; Z87.19 Personal history of other diseases of the digestive system | CPT/HCPCS: 99204 ==

== ENCOUNTER → 2021-09-07 15:41 | Outpatient (BNVA) | payer MEDICARE, MEDICAID, SELFPAY | PROVIDERS: PCP Family Medicine; Visit Provider Internal Medicine | DX: Z09 Encounter for follow-up examination after completed treatment for conditions other than malignant neoplasm (principal) | CPT/HCPCS: 99214 ==

== ENCOUNTER → 2021-10-05 12:54 | Outpatient (BNVA) | payer MEDICARE, MEDICAID, SELFPAY | PROVIDERS: PCP Family Medicine; Visit Provider Internal Medicine | DX: E11.59 Type 2 diabetes mellitus with other circulatory complications (principal); Z87.440 Personal history of urinary (tract) infections; Z87.19 Personal history of other diseases of the digestive system; Z79.84 Long term (current) use of oral hypoglycemic drugs | CPT/HCPCS: 99214 ==

== ENCOUNTER → 2022-03-08 16:01 | Outpatient (BNVA) | payer MEDICARE, MEDICAID, SELFPAY | PROVIDERS: PCP Family Medicine; Visit Provider Internal Medicine | DX: I10 Essential (primary) hypertension (principal); I48.91 Unspecified atrial fibrillation; Z79.01 Long term (current) use of anticoagulants; Z78.9 Other specified health status; E78.5 Hyperlipidemia, unspecified; E11.9 Type 2 diabetes mellitus without complications; Z79.84 Long term (current) use of oral hypoglycemic drugs; Z87.891 Personal history of nicotine dependence | CPT/HCPCS: 99214 ==

== ENCOUNTER 2022-05-24 14:48 | Outpatient (CLI) | payer MEDICARE, MEDICAID, SELFPAY ==
--- NOTE | 2022-05-24 15:08 | MM_ITS ---
WS: [id number] BILATERAL 3D TOMOSYNTHESIS DIGITAL SCREENING MAMMOGRAPHY WITH CAD CLINICAL INFORMATION: SCREENING HISTORY: Screening mammogram. No current complaints. COMPARISON: 2020 TECHNIQUE: Bilateral CC and MLO views. FINDINGS: Scattered fibroglandular densities bilaterally. No suspicious focal mass, asymmetry, calcifications, or architectural distortion. No evidence of malignancy. Vascular calcification. Punctate and lucent c entered calcifications. Clustered calcifications. MM/[id number] IMPRESSION: BI-RADS: 2-Benign FOLLOW UP: 1 Year Follow-up Recommend return to annual screening mammography.
== END 2022-05-24 14:49 | disposition home or self-care (01) ==
LOC: RAD 14:49
PROVIDERS: PCP Family Medicine; Visit Provider Physician Assistant
DX: E11.59 Type 2 diabetes mellitus with other circulatory complications (principal); Z12.31 Encounter for screening mammogram for malignant neoplasm of breast; E11.65 Type 2 diabetes mellitus with hyperglycemia; I48.91 Unspecified atrial fibrillation; I25.10 Atherosclerotic heart disease of native coronary artery without angina pectoris; Z79.84 Long term (current) use of oral hypoglycemic drugs
CPT/HCPCS: 77063; 77067; 99214

== ENCOUNTER 2022-08-13 14:22 | Outpatient (CLI) | payer MEDICARE, MEDICAID, SELFPAY ==
--- NOTE | 2022-08-13 14:55 | XR_ITS ---
WS: [id number] DEXA (DUAL ENERGY X-RAY ABSORPTIOMETRY) Bone mineral density was performed using a [employer] machine. HISTORY: OSTEOPOROSIS COMPARISON: 04/14/2020 Left forearm BMD: 0.985 g/cm2. T score: 1.2 Z score: 2.8 Total hip BMD: Left: 0.914 g/cm2. T score: -0.7 Z score: -0.2 Right: 0.824 g/cm2. T score: -1.5 Z score: -1.0 10 year probability of a major osteoporotic fracture is 9.4%. Compared to the prior study from 04/14/2020. LEFT forearm bone mineral density has decreased by 1.5%. Bilateral hips bone mineral density has increased by 3.5%. XR/XR DEXA axial skeleton* [id number] IMPRESSION: OSTEOPENIA based upon the WHO classification for females. Significant increase in bone mineral density within the hips. No significant ch fozia within the LEFT forearm.
== END 2022-08-13 14:23 | disposition home or self-care (01) ==
PROVIDERS: PCP Family Medicine; Visit Provider Physician Assistant
DX: M81.0 Age-related osteoporosis without current pathological fracture (principal); M85.88 Other specified disorders of bone density and structure, other site
CPT/HCPCS: 77080

== ENCOUNTER → 2022-09-10 15:00 | Outpatient (BNVA) | payer MEDICARE, MEDICAID, SELFPAY | PROVIDERS: PCP Family Medicine; Visit Provider Internal Medicine | DX: I48.91 Unspecified atrial fibrillation (principal); Z79.01 Long term (current) use of anticoagulants; Z78.9 Other specified health status; I10 Essential (primary) hypertension; E78.5 Hyperlipidemia, unspecified; E11.9 Type 2 diabetes mellitus without complications; Z79.84 Long term (current) use of oral hypoglycemic drugs; Z87.891 Personal history of nicotine dependence | CPT/HCPCS: 99213 ==

== ENCOUNTER → 2022-10-10 13:08 | Outpatient (BNVA) | payer MEDICARE, MEDICAID, SELFPAY | PROVIDERS: PCP Family Medicine; Visit Provider Internal Medicine | DX: E11.59 Type 2 diabetes mellitus with other circulatory complications (principal); E78.5 Hyperlipidemia, unspecified; Z79.84 Long term (current) use of oral hypoglycemic drugs | CPT/HCPCS: 99214 ==

== ENCOUNTER → 2023-02-18 14:47 | Outpatient (BNVA) | payer MEDICARE, MEDICAID, SELFPAY | PROVIDERS: PCP Family Medicine; Visit Provider Internal Medicine | DX: I48.91 Unspecified atrial fibrillation (principal); Z79.01 Long term (current) use of anticoagulants; Z78.9 Other specified health status; I10 Essential (primary) hypertension; E78.5 Hyperlipidemia, unspecified; E11.9 Type 2 diabetes mellitus without complications; Z87.891 Personal history of nicotine dependence | CPT/HCPCS: 99214 ==

== ENCOUNTER 2023-02-19 12:29 | Observation (INO) | payer MEDICARE, MEDICAID, SELFPAY ==
[2023-02-19] VITALS (11 sets, daily range): BP systolic 125–172; BP diastolic 69–107; PULSE 63–101; RESP 14–19; TEMP 36.8–37.2; O2SAT 90–96; BMI 37.9
--- NOTE | 2023-02-19 13:23 | W.ED.GENADLT ---
HPI - General Adult General: Chief complaint: Recheck/Abnormal Lab/Rx Stated complaint: sent by vaibhav / [email or web address] Time Seen by Provider: 02/19/23 12:36 Source: patient Mode of arrival: ambulatory History of Present Illness: 67-year-old female who comes in with varicella-zoster ophthalmic division trigeminal nerve. She was seen a few days ago in the outpatient clinic and given a prescription for valacyclovir and unfortunately she did not get it filled. She did follow-up today with her primary care provider had marked worsening and apparent erysipelas of the face as well as worsening zoster however it did not affect the eye. Dr. Basilio called ahead of time and done a culture lesion in the nose he had also done a stained eye exam evidently of the cornea and did not note any involvement of the cornea. Onset (ago): day(s) Location: face Severity: mild Quality: burning Pain Consistency: constant Associated symptoms: Deny chest pain, dyspnea, malaise, nausea, rash or vomiting Review of Systems Const: Denies: fever(s), chills, body aches, change in appetite, fatigue or malaise ENMT: Denies: throat pain, ear or mastoid pain, nasal discharge or nasal congestion Card: Denies: chest pain, edema, dyspnea on exertion or orthopnea Resp: Denies: dyspnea, productive cough or non-productive cough GI: Denies: abdominal pain, nausea, vomiting, hematemesis, coffee ground emesis, diarrhea, constipation, bloating, hematochezia or melena : Denies: flank pain, difficulty voiding, dysuria, urinary frequency or urinary urgency Skin/Breast: Denies: rash or pruritus PFSH ED PFSH: Medical History Atrial fibrillation On Digoxin and Xarelto Coronary artery disease Diabetes mellitus Dyslipidemia Essential hypertension 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 Seizure spontaneously resolved. On [facility]. Surgical History History of cardiac catheterization 2020 no significant coronary artery disease, slow flow in all vessels, likely with microvascular dysfunction History of exploratory laparotomy 12/2015 exploratory laparotomy via vertical midline supraumbilical incision in [facility]. Extensive surgery including hernia repair, cholecystectomy, resection of pancreas, splenectomy and resection of part of her bowel with re-anastomosis. After surgery she developed a large ventral hernia over surgical incision, corrected in 2018. S/P appendectomy Done at time of open hysterectomy in 2004 S/P hernia repair 2018--large postoperative hernia abdominal surgery in 2015. Repaired with large mesh and extensive reconstruction in [place], [place]. She was told by the surgeons that she has extensive adhesions inside her abdomen. S/P hysterectomy with oophorectomy 08/2004--exploratory laparotomy, total abdominal hysterectomy, bilateral salpingo-oophorectomy and appendectomy-- Performed by Dr Layton in [place], [place]. Due to enlarged ovaries per patient. Patient reports that no cancer was noted. --Operative reports are not present however a letter to Dr. Rhoades updating him with findings of surgery was noted. It has been scanned into the chart. S/P knee surgery 1999-Performed by Dr Chen at [facility] in [place], [place] S/P laparoscopy x 2 S/P shoulder surgery 1981- Performed in [place], [place], right shoulder Family History Mother Diabetes Heart disease Hypertension Stroke Uterine cancer diagnosed at age 51 or 52 Father Hyperlipidemia Heart disease Hypertension Grandfather Heart disease paternal Hypertension paternal Sister Breast cancer Diagnosed in her late 40s Grandmother Colon cancer Maternal, diagnosed at age 80 Denies family history of Ovarian cancer Thyroid condition Social History Smoking and tobacco status: former smoker Substance/Drug Use: never Do you think of yourself as: Straight/Heterosexual Physical Exam Const: GENERAL APPEARANCE: cooperative and comfortable ORIENTATION/CONSCIOUSNESS: Yes awake, Yes oriented to person, Yes oriented to place and Yes oriented to time HENMT: COMMON NORMALS: normocephalic HEAD & SCALP: normocephalic OTHER: Examination patient's face she has zoster on the ophthalmic division of the trigeminal nerve with involvement of the eyelid but sparing of the sclera itself there is some involvement of the outer helix examined the external auditory canal and did not see any lesions however patient is exquisitely tender there. There is redness erythema and some palm crusting of open areas around the nose. Resp: COMMON NORMALS: normal respiratory effort, No retractions, No use of accessory muscles and clear to auscultation bilaterally AUSCULTATION: clear to auscultation bilaterally Cardio: COMMON NORMALS: regular rate, regular rhythm and No murmurs present (Cardio) RATE: regular rate RHYTHM: regular rhythm GI: COMMON NORMALS: Soft to palpation and No hepatosplenomegaly present AUSCULTATION: Yes normoactive bowel sounds PALPATION: Yes Soft to palpation, No Tenderness to palpation present (GI), No Guarding due to palpation present (GI) and Yes No hepatosplenomegaly present Extremity: COMMON NORMALS: normal to inspection, capillary refill normal, no clubbing, cyanosis or edema, no calf tenderness and no pedal edema Neuro: SENSORIUM/ORIENTATION: Yes oriented to person, Yes oriented to place and Yes oriented to time Skin: COMMON NORMALS: no rashes or lesions noted GENERAL SKIN EXAM: no rashes or lesions noted Course Vital Signs: Vital signs: Vital Signs Temperature 98.2 F 02/19/23 12:31 Pulse Rate 92 02/19/23 12:31 Respiratory Rate 16 02/19/23 12:31 Blood Pressure 139/79 02/19/23 12:31 Pulse Oximetry 94 02/19/23 12:31 Oxygen Delivery Me thod Room Air 02/19/23 12:31 MDM - General Adult Medical Decision Making Varicella-zoster ophthalmic division of the trigeminal nerve. 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 Lab Data I reviewed the patient's lab results. 02/19/23 14:13 02/19/23 12:58 Laboratory Results WBC 6.67 10^3/uL (3.29-11.43) 02/19/23 14:13 Corrected WBC Cancelled 02/19/23 12:56 RBC 4.71 10^6/uL (3.85-5.65) 02/19/23 14:13 Hgb 14.90 g/dL (11.27-16.99) 02/19/23 14:13 Hct 46.3 % (36-47) 02/19/23 14:13 MCV 98.3 fl (85-98) H 02/19/23 14:13 MCH 31.6 pg (27-33) 02/19/23 14:13 MCHC 32.2 g/dL (30-55) 02/19/23 14:13 RDW 13.5 % (12.1-15.1) 02/19/23 14:13 Plt Count 313 10^3/cmm (157-399) 02/19/23 14:13 MPV 9.3 fL (7.4-10.4) 02/19/23 14:13 Gran % Cancelled 02/19/23 12:56 Neut % (Auto) 53.9 % 02/19/23 14:13 Lymph % (Auto) 33.7 % 02/19/23 14:13 [place] % (Auto) 8.7 % 02/19/23 14:13 Eos % (Auto) 2.1 % 02/19/23 14:13 Baso % (Auto) 1.2 % 02/19/23 14:13 Neut # (Auto) 3.59 10^3/uL (1.8-7.7) 02/19/23 14:13 Lymph # (Auto) 2.3 10^3/uL (0.8-4.8) 02/19/23 14:13 [place] # (Auto) 0.6 10^3/uL (0.2-0.9) 02/19/23 14:13 Eos # (Auto) 0.1 10^3/uL (0.0-0.8) 02/19/23 14:13 Baso # (Auto) 0.1 10^3/uL (0.0-0.1) 02/19/23 14:13 Absolute Gran (auto) Cancelled 02/19/23 12:56 Nucleated RBC % (auto) 0 % 02/19/23 14:13 Nucleated RBCs # 0.0 /100WBC 02/19/23 14:13 Sodium 133 mmol/L (136-145) L 02/19/23 12:58 Potassium 4.1 mmol/L (3.5-5.1) 02/19/23 12:58 Chloride 98 mmol/L (98-107) 02/19/23 12:58 Carbon Dioxide 25 mmol/L (22-29) 02/19/23 12:58 Anion Gap 14.1 (5-19) 02/19/23 12:58 BUN 21 mg/dL (8-23) 02/19/23 12:58 Creatinine 1.2 mg/dL (0.5-0.9) H 02/19/23 12:58 GFR Calculation 44.7 mL/min (90-130) L 02/19/23 12:58 Glucose 151 mg/dL (65-115) H 02/19/23 12:58 Calculated Osmolality 282 mOsm/kg (285-295) L 02/19/23 12:58 Calcium 9.2 mg/dL (8.5-10.5) 02/19/23 12:58 Total Bilirubin 0.4 mg/dL (0.15-1.2) 02/19/23 12:58 AST 19 U/L (0-32) 02/19/23 12:58 ALT 21 U/L (0-33) 02/19/23 12:58 Alkaline Phosphatase 67 U/L (35-105) 02/19/23 12:58 Total Protein 7.8 g/dL (6.6-8.7) 02/19/23 12:58 Albumin 4.0 g/dL (3.5-5.2) 02/19/23 12:58 Globulin 3.8 g/dL (1.3-4.6) 02/19/23 12:58 Digoxin 0.9 ng/mL (0.6-1.2) 02/19/23 12:58 Discharge Plan Discharge Patient Disposition: Admitted As Inpatient Admit Provider: Justa Martinez Clinical Impression: Herpes zoster virus infection of face and ear nerves, Facial cellulitis Condition: Stable Coding Level of Care Code ED Commercial Loan Coordinator for Chg Rosalba
[2023-02-19] MEDS: acyclovir 1,000 MG in sodium chloride 0.9% 250 ML 270 MG IV ×2 (13:31→21:31)
[2023-02-19 13:50] LABS: Alanine Aminotransferase 21 U/L (0-33); Alkaline Phosphatase 67 U/L (35-105); Anion Gap 14.1 (5-19); Aspartate Amino Transferase 19 U/L (0-32); Blood Urea Nitrogen 21 mg/dL (8-23); Calcium 9.2 mg/dL (8.5-10.5); Carbon Dioxide 25 mmol/L (22-29); Chloride 98 mmol/L (98-107); Globulin 3.8 g/dL (1.3-4.6); Glomerular Filtration Rate 44.7 mL/min (90-130); Glucose 151 mg/dL (65-115); Osmolality Calculated 282 mOsm/kg (285-295); Potassium 4.1 mmol/L (3.5-5.1); Sodium 133 mmol/L (136-145); Total Bilirubin 0.4 mg/dL (0.15-1.2); Total Protein 7.8 g/dL (6.6-8.7)
--- NOTE | 2023-02-19 13:59 | P.HP_ITS ---
Providers/Chief Complaint Admitting Physician: Justa Martinez MD Primary Care Provider: Peña Basilio MD Chief Complaint: sent by vaibhav / davion History of Present Illness Megan Botello is a 67 year old female who presented to the emergency room from Dr. Basilio office for evaluation and admission. Over the last week or so patient has had intermittent episodes of shooting pain from the inside of her mouth on the left side towards her left ear. She describes the pain as shooting out her left ear. The pain started worsening approximately 5 days ago. She began to have some redness and swelling to the left side of her face over the weekend. On Saturday morning symptoms were much worse and she was seen at the urgent care clinic. She had swelling around her left eye at the time along with erythema to the left face. Left-sided facial droop was noted. A vesicular rash was seen on the nose as were small vesicles on the inside of the mouth on the left side. She was felt to have herpes zoster with possible secondary infection. She was given prescription for valacyclovir and Bactrim. She filled the Bactrim on Saturday. 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 She took 2 doses of it yesterday. Today she was seen by Dr. Basilio for follow-up. She has started having oozing and crusting around the left side of her nose, and her left nares as well as in her left ear. The swelling of her face had also increased. Dr. Basilio took a culture from the nose wound and noticed continued spread of erythema and swelling. He checked her left eye and did not note any vesicles in the left eye. She denies any pain in the eye or changes in vision. Pain is predominantly in the left ear, along the left cheek and in the left side of her mouth. Oral pain is worse with swallowing. No drooling. She has had fever last night. She has been taking Tylenol for pain. She has been able to take her other medications. No bleeding. She had chickenpox as a child. She had not had shingles vaccine. In the emergency room she received empiric acyclovir and vancomycin. She is being admitted for further treatment and close monitoring given facial involvement and rapid progression of skin findings over the last 24 hours or so. Review of Systems General: Reports: Other (ROS as per HPI or as otherwise noted here) Const: Reports: fever(s), chills and malaise Eyes: Denies: change in vision, photophobia or eye discomfort Card: Denies: chest pain Resp: Denies: dyspnea GI: Reports: dysphagia (Secondary to pain; physically able to swallow) and constipation; Denies: nausea or vomiting : Denies: difficulty voiding Musc: Reports: other (Uses a cane, arthritis in knees) Neuro: Reports: other (No facial numbness); Denies: headache(s) or confusion Meño/Lymph: Reports: other (No recent bleeding problems) Medications/Allergies Home Medications Medication Instructions Recorded Confirmed Last Taken Type coenzyme Q10 100 mg capsule (Co 100 mg PO QAM 10/21/19 02/19/23 02/18/23 History Q-10) digoxin 250 mcg (0.25 mg) tablet 250 mcg PO BEDTIME 10/21/19 02/19/23 02/18/23 History vitamin B complex (B 1 tab PO QAM 10/21/19 02/19/23 02/18/23 History Complex-Vitamin B12 tablet) levetiracetam 500 mg tablet 500 mg PO BID 11/06/19 02/19/23 02/18/23 History metoprolol tartrate 25 mg tablet See Rx Instructions .Route .COMPLEX 06/21/20 02/19/23 02/18/23 History nitroglycerin 0.3 mg sublingual 0.3 mg sublingual Q5M PRN chest 06/21/20 02/19/23 Unknown Rx tablet pain #30 tabs omega-3 acid ethyl esters 1 gram 2 g PO BID 06/21/20 02/19/23 02/19/23 History capsule cholecalciferol (vitamin D3) 25 25 mcg PO BEDTIME 04/19/21 02/19/23 02/18/23 History mcg (1,000 unit) capsule turmeric root extract 500 mg 500 mg PO BID 05/24/22 02/19/23 02/18/23 History capsule hydrochlorothiazide 25 mg tablet 25 mg PO QAM #90 tabs 09/24/22 02/19/23 02/18/23 Rx losartan 100 mg tablet 100 mg PO QAM #90 tabs 09/24/22 02/19/23 02/18/23 Rx mupirocin 2 % topical ointment 1 applic topical TID #22 grams 02/17/23 02/19/23 02/19/[address] bowers today sulfamethoxazole 800 1 tab PO BID 5 days #10 tabs 02/17/23 02/19/23 02/18/23 Rx mg-trimethoprim 160 mg tablet (Bactrim DS) valacyclovir 1 gram tablet 1,000 mg PO TID 7 days #21 tabs 02/17/23 02/19/23 02/18/23 Rx started 02/18/23 CPAP tubing and mask #1 ea 02/19/23 Unknown Rx acetaminophen 500 mg tablet 500 mg PO Q6H PRN Pain 02/19/23 02/19/23 Unknown History berberine-herbal comb no.18 capsule 1 cap PO DAILY 02/19/23 02/19/23 1 Week Ago History ~02/12/23 isosorbide mononitrate 30 mg 30 mg PO BID 02/19/23 02/19/23 02/18/23 History tablet,extended release 24 hr magnesium oxide 800 mg PO BEDTIME 02/19/23 02/19/23 02/18/23 History metformin 500 mg tablet,extended 1,000 mg PO QAM 02/19/23 02/19/23 02/18/23 History release 24 hr pentoxifylline 400 mg See Rx Instructions .Route .COMPLEX 02/19/23 02/19/23 02/18/23 History tablet,extended release rivaroxaban 20 mg tablet (Xarelto) 20 mg PO BEDTIME 02/19/23 02/19/23 02/18/23 History vitamin E 670 mg (1,000 unit) 1 cap PO DAILY 02/19/23 02/19/23 02/18/23 History capsule vitamins A,C,J-mzjd-gkqccm 2,148 1 tab PO BID 02/19/23 02/19/23 02/18/23 History mcg-113 mg-45 mg-17.4 mg tablet (PreserVision AREDS) zinc acetate 50 mg (zinc) capsule 50 mg PO DAILY 02/19/23 02/19/23 02/18/23 History Allergies Allergy/AdvReac Type Severity Reaction Status Date / Time amlodipine Allergy rash Verified 02/18/23 15:20 clindamycin Allergy rash Verified 02/18/23 15:20 Latex, Natural Rubber Allergy Rash/itchin Verified 02/19/23 20:29 g morphine Allergy Rash/itchin Verified 02/18/23 15:20 g diltiazem AdvReac Generalized Verified 02/18/23 15:20 edema hydromorphone AdvReac itching Verified 02/18/23 15:20 PFSH Acute PFSH: Medical History (Updated 02/19/23 @ 20:15 by Justa Martinez MD) Atrial fibrillation On Digoxin and Xarelto Chronic kidney disease Coronary artery disease Diabetes mellitus Dyslipidemia Essential hypertension 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 Seizure spontaneously resolved. On keppra. Sleep apnea Surgical History (Updated 02/19/23 @ 20:01 by Justa Martinez MD) History of cardiac catheterization 2020 no significant coronary artery disease, slow flow in all vessels, likely with microvascular dysfunction History of cataract surgery History of cholecystectomy 2015 History of exploratory laparotomy 12/2015 exploratory laparotomy via vertical midline supraumbilical incision in [facility]. Extensive surgery including hernia repair, cholecystectomy, resection of pancreas, splenectomy and resection of part of her bowel with re-anastomosis. After surgery she developed a large ventral hernia over surgical incision, corrected in 2018. 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 Repaired with large mesh and extensive reconstruction in [place], [place]. She was told by the surgeons that she has extensive adhesions inside her abdomen. S/P hysterectomy with oophorectomy 08/2004--exploratory laparotomy, total abdominal hysterectomy, bilateral salpingo-oophorectomy and appendectomy-- Performed by Dr Layton in [place], [place]. Due to enlarged ovaries per patient. Patient reports that no cancer was noted. S/P knee surgery 1999-Performed by Dr Chen at [facility] in [place], [place] S/P laparoscopy x 2 S/P shoulder surgery 1981- Performed in [place], [place], right shoulder Family History Mother Diabetes Heart disease Hypertension Stroke Uterine cancer diagnosed at age 51 or 52 Father Hyperlipidemia Heart disease Hypertension Grandfather Heart disease paternal Hypertension paternal Sister Breast cancer Diagnosed in her late 40s Grandmother Colon cancer Maternal, diagnosed at age 80 Denies family history of Ovarian cancer Thyroid condition Social History (Updated 02/19/23 @ 19:57 by Justa Martinez MD) Smoking and tobacco status: former smoker Substance/Drug Use: never Do you think of yourself as: Straight/Heterosexual Vitals/I&O/Wt Last Vital Signs Temp 98.2 F 02/19/23 12:31 Pulse 92 02/19/23 12:31 Resp 16 02/19/23 12:31 BP 139/79 02/19/23 12:31 Pulse Ox 94 02/19/23 12:31 O2 Del Method Room Air 02/19/23 12:31 Weight last 48 hrs Weight 106.594 kg Physical Exam Narrative: Patient is awake and alert. Able to provide history. Oriented x4. Patient with chronically bulbous nose. On top of this she has some edema to the left side of the nose with loss of nasolabial fold. Left cheek is edematous with left lower facial droop noted. There is some puffiness around the lower eyelid. Conjunctive a are pink with no lesions noted. Sclera are not injected. There is some crusting over the nose along the nasolabial fold with some of this crusting on the medial eyelashes. There is 1 area at the base of the nose on the left side with darkened skin and crusting. The skin at the base of her nasal septum is also crusted over. Left nares with some yellowish oozing. I am not able to actually visualize any vesicles in the nose. Left side of the oral mucosa with several ulcerations ranging from 2 to 4 in diameter. Some smaller vesicular appearing lesions are also noted along the left cheek. She is frias dling oral secretions without any apparent difficulty. Swelling extends along the left cheekbone to the left preauricular area. No posterior auricular swelling is currently noted. There is yellowish oozing from the left ear canal. There is some pain with movement of the earlobe though pain is improved with pressure on the posterior auricular portion of the ear canal. I do not see extension beyond this region. There are some mild erythema on the forehead. She has a small amount of erythema extending to the right nasolabial fold mid cheek but still has a well-defined demarcation between the nose and the cheek. No extension of erythema beyond the face currently. Lungs are clear. She has an regular rhythm. Abdomen is soft, nontender. No pitting edema to the lower extremities. Capillary refill is brisk. Speech is clear. Moves all extremities. No abnormal movements. Normal affect. Data 02/19/23 14:13 02/19/23 12:58 Other Labs: Laboratory Results Anion Gap 14.1 (5-19) 02/19/23 12:58 GFR Calculation 44.7 mL/min (90-130) L 02/19/23 12:58 Calculated Osmolality 282 mOsm/kg (285-295) L 02/19/23 12:58 Calcium 9.2 mg/dL (8.5-10.5) 02/19/23 12:58 Total Bilirubin 0.4 mg/dL (0.15-1.2) 02/19/23 12:58 AST 19 U/L (0-32) 02/19/23 12:58 ALT 21 U/L (0-33) 02/19/23 12:58 Alkaline Phosphatase 67 U/L (35-105) 02/19/23 12:58 Total Protein 7.8 g/dL (6.6-8.7) 02/19/23 12:58 Albumin 4.0 g/dL (3.5-5.2) 02/19/23 12:58 Globulin 3.8 g/dL (1.3-4.6) 02/19/23 12:58 Digoxin 0.9 ng/mL (0.6-1.2) 02/19/23 12:58 Micro: Microbiology 02/19/23 13:15 Blood Culture - Preliminary Blood SPECIMEN COLLECTED 02/19/23 12:58 Blood Culture - Preliminary Blood SPECIMEN COLLECTED Other data: Culture was collected at Dr. Basilio office from the nose A&P Assessment and plan (1) Herpes zoster virus infection of face and ear nerves: Presumptive diagnosis based on description of vesicular lesions a couple of days ago, current mucosal ulcerations and small vesicles, left ear pain and drainage, as well as pain description. Has associated left-sided facial droop. Currently without gross hearing loss. (2) Facial cellulitis: Secondary infection with gram-positive or gram-negative organism strongly suspected. Risk factors include diabetes mellitus and status-post splenectomy (3) Diabetes mellitus: Type II, [id number], with cardiac complications and chronic kidney disease stage 3a, chronically on metformin (4) Atrial fibrillation: Chronic, rate controlled, on digoxin and Xarelto (5) Essential hypertension: Chronically on hydrochlorothiazide, losartan, beta-blockade and nitrates. Pressures currently high in part secondary to healthcare setting and current discomfort. (6) Coronary artery disease: Microvascular cardiac disease, chronically on isosorbide and beta-blockade, cardiac catheterization in 2020 did not show obstructive large vessel disease (7) Sleep apnea: Chronic obstructive, uses CPAP at home but has had significant facial irritation from CPAP mask and air. Uses nasal pillows usually. 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 She has not responded well to various pain medications in past and had a family member have severe effects from treatment with gabapentin. She is comfortable currently with Tylenol but will ask if she needs something additional. Magic mouthwash as needed to help with swallowing Hold home metformin, sliding scale insulin currently, check hemoglobin A1c Will need to monitor blood sugars with steroids Continue home digoxin and Xarelto Continue home beta-blockade, isosorbide mononitrate and losartan Currently holding hydrochlorothiazide IV fluids overnight Most home herbal medications and vitamins have been held Currently unable to wear CPAP mask secondary to distribution of skin findings along with pain. She uses nasal pillows. Drainage from her nares as well as her face have gotten on her mask. Will ask case management to help see if she can get replacement mask and hose from [facility] whom she normally gets her CPAP supplies through. I have entered a prescription in case it is needed which has been printed and placed into patient's chart. Telemetry monitoring currently along with oxygen therapy if needed given current inability to adequately treat sleep apnea in this patient with a known history of atrial fibrillation Supportive care otherwise Findings, concerns and plans were discussed with patient and she was given an opportunity to ask questions. Specifically asked her to notify staff if she has any development of pain in her eye or changes in vision. Also asked her to let nursing staff know if pain is not adequately controlled with Tylenol. She avoids NSAID therapy secondary to chronic anticoagulation and kidney function. She is aware that it may take some time for symptoms to resolve, in particular neuropathic pain and left facial droop. Made her aware that until the crusted over lesions resolve she should avoid being around women and those who have not had chickenpox or vaccination. VTE prophylaxis: Chronically on Xarelto GI Prophylaxis: PPI Telemetry: Ordered secondary to known atrial fibrillation as well as sleep apnea currently unable to wear CPAP mask for reasons beyond her control Avendano: Not currently indicated Line(s): Peripheral IV Disposition plan: Anticipate discharge home likely with resumption of already prescribed valacyclovir and Bactrim. Depending on clinical course and results of cultures, coverage may be adjusted. Will need close follow-up to ensure continued improvement. Code Status: Full code Attestations Medical Necessity Statement*: Currently anticipate a stay less than 2 midnights in this patient presenting as described. She has herpes zoster infection of the face with Luisito Shultz sy ndrome. Clinically looks to have superinfection. Known to have diabetes and prior splenectomy increasing risk of secondary infection. Given rapid progression of skin findings today being admitted for IV treatment and close monitoring. She has had some improvement after therapy initiated in the e mergency room. Diagnoses Herpes zoster virus infection of face and ear nerves B02.29 Facial cellulitis L03.211 Diabetes mellitus E11.9 Atrial fibrillation I48.91 Essential hypertension I10 Coronary artery disease I25.10 Sleep apnea G47.30 History of splenectomy Z90.81
[2023-02-19 14:00] LABS: Digoxin 0.9 ng/mL (0.6-1.2)
--- NOTE | 2023-02-19 14:10 | PC.PHAR ---
pt states she takes care of her own medications-pt states she takes metformin er 500mg takes 1000mg qam rx written for 1500mg daily-notes are made in the pharmacy comments
[2023-02-19 14:21] LABS: Basophils # 0.1 10^3/uL (0.0-0.1); Basophils % 1.2 %; Eosinophils # 0.1 10^3/uL (0.0-0.8); Eosinophils % 2.1 %; Hematocrit 46.3 % (36-47); Lymphocytes # 2.3 10^3/uL (0.8-4.8); Lymphocytes % 33.7 %; Mean Corpuscular HGB Conc 32.2 g/dL (30-55); Mean Corpuscular Hemoglobin 31.6 pg (27-33); Mean Corpuscular Volume 98.3 fl (85-98); Mean Platelet Volume 9.3 fL (7.4-10.4); Monocytes # 0.6 10^3/uL (0.2-0.9); Monocytes % 8.7 %; Neutrophils # 3.59 10^3/uL (1.8-7.7); Neutrophils % 53.9 %; Nucleated Red Blood Cells % 0 %; Platelet Count 313 10^3/cmm (157-399); Red Blood Count 4.71 10^6/uL (3.85-5.65); Red Cell Distribution Width 13.5 % (12.1-15.1); White Blood Count 6.67 10^3/uL (3.29-11.43)
[2023-02-19] MEDS: vancomycin 1,000 MG in sodium chloride 0.9% 250 ML 125 MG IV (15:18)
--- NOTE | 2023-02-19 15:31 | PC.NURSE ---
Gave verbal report to HAZEL Coto on . I made sure that I told Chica that I would be starting the vancomycin prior to the patient leaving the ER. I started the vancomycin about 1 minute prior to the patient leaving the ER and the drip was sent with the patient to the floor.
[2023-02-19] MEDS: acetaminophen 325 mg Tablet 650 MG PO (17:24)
[2023-02-19] MEDS: isosorbide mononitrate ER 30 mg Tablet PO (17:25)
[2023-02-19] MEDS: sodium chlor 0.9% + KCl 20 mEq 20 MEQ/1,000 ML BAG 100 MEQ IV (17:26)
[2023-02-19] MEDS: predniSONE 20 mg Tablet 40 MG PO (21:30)
[2023-02-19] MEDS: levETIRAcetam 500 mg Tablet PO (21:31)
[2023-02-19] MEDS: rivaroxaban 10 mg Tablet 20 MG PO (21:31)
[2023-02-19] MEDS: metoprolol tartrate 25 mg Tablet PO (21:31)
[2023-02-19] MEDS: digoxin 250 mcg Tablet PO (21:31)
[2023-02-19] MEDS: amoxicillin-clav 500-125 mg Tablet 1 TAB PO (21:31)
[2023-02-19] MEDS: magnesium oxide 400 mg tablet 800 MG PO (21:31)
[2023-02-19] MEDS: mupirocin oint 22 gm 1 APPLIC TOPICAL (21:32)
[2023-02-19] MEDS: NON-FORMULARY MEDICATION (Pentoxifylline 400 mg tablet extended release) PO (23:01)
[2023-02-20] VITALS (9 sets, daily range): BP systolic 129–150; BP diastolic 67–79; PULSE 50–70; RESP 16–18; TEMP 36.4–36.8; O2SAT 91–94
[2023-02-20] MEDS: vancomycin 1,500 MG/300 ML PIGGYBACK 200 MG IV (02:23)
[2023-02-20] MEDS: lidocaine 2% viscous 1.667 ML, diphenhydrAMINE oral liq 4.165 MG, aluminum-mag hydrox-s... MUCOUS MEM ×2 (02:25→22:39)
[2023-02-20] MEDS: acyclovir 1,000 MG in sodium chloride 0.9% 250 ML 270 MG IV ×3 (05:58→20:30)
[2023-02-20 05:59] LABS: Basophils % 0.6 %; Hematocrit 43.5 % (36-47); Lymphocytes # 1.8 10^3/uL (0.8-4.8); Mean Corpuscular HGB Conc 31.5 g/dL (30-55); Mean Corpuscular Hemoglobin 31.4 pg (27-33); Mean Corpuscular Volume 99.5 fl (85-98); Mean Platelet Volume 10.1 fL (7.4-10.4); Monocytes # 0.1 10^3/uL (0.2-0.9); Monocytes % 1.8 %; Neutrophils # 3.02 10^3/uL (1.8-7.7); Nucleated Red Blood Cells % 0 %; Platelet Count 313 10^3/cmm (157-399); Red Blood Count 4.37 10^6/uL (3.85-5.65); Red Cell Distribution Width 13.4 % (12.1-15.1); White Blood Count 4.95 10^3/uL (3.29-11.43)
[2023-02-20] MEDS: sodium chlor 0.9% + KCl 20 mEq 20 MEQ/1,000 ML BAG 75 MEQ IV ×2 (06:00→17:24)
[2023-02-20] MEDS: acetaminophen 325 mg Tablet 650 MG PO ×2 (06:03→14:20)
[2023-02-20 06:13] LABS: Estmated Average Glucose 160; Hemoglobin A1C 7.2 % (4.0-6.0)
[2023-02-20 06:17] LABS: Anion Gap 15.9 (5-19); Blood Urea Nitrogen 24 mg/dL (8-23); Carbon Dioxide 23 mmol/L (22-29); Chloride 100 mmol/L (98-107); Glomerular Filtration Rate 44.7 mL/min (90-130); Glucose 309 mg/dL (65-115); Magnesium 2.2 mg/dL (1.7-2.3); Osmolality Calculated 294 mOsm/kg (285-295); Phosphorus 2.9 mg/dL (2.5-4.5); Potassium 4.9 mmol/L (3.5-5.1); Sodium 134 mmol/L (136-145)
[2023-02-20 07:25] LABS: Glucose Point of Care 314 mg/dL (70-110)
[2023-02-20] MEDS: insulin lispro 100 unit/1 mL SUBCUT ×4 (08:24→22:25)
[2023-02-20] MEDS: metoprolol tartrate 25 mg Tablet PO ×2 (08:44→20:30)
[2023-02-20] MEDS: pantoprazole DR 40 mg Tablet PO (08:44)
[2023-02-20] MEDS: isosorbide mononitrate ER 30 mg Tablet PO ×2 (08:44→17:14)
[2023-02-20] MEDS: levETIRAcetam 500 mg Tablet PO ×2 (08:44→20:30)
[2023-02-20] MEDS: predniSONE 20 mg Tablet 40 MG PO (08:45)
[2023-02-20] MEDS: losartan 50 mg Tablet 100 MG PO (08:45)
[2023-02-20] MEDS: mupirocin oint 22 gm 1 APPLIC TOPICAL (08:45)
[2023-02-20] MEDS: amoxicillin-clav 500-125 mg Tablet 1 TAB PO ×3 (08:47→20:29)
--- NOTE | 2023-02-20 09:54 | PC.CHAP ---
Pastoral Care Encounter/Spiritual Assessment Type of Contact [] Declined adoption agent visit [] Patient/Family/Request visit [] Outpatient visit [] Follow-up visit [] Physician referral [] Code/Alert [x] Routine visit [] Staff referral [] Actively dying [] Patient sleeping [] Family support [] [] Out of room [] Palliative care [] [] Receiving care in room [] Pre-surgical visit [] Trauma [] Long length of stay [] ICU visit [x] Other: precaution Relational/Emotional Strength [] Patient feels connected with others/family/visitors/staff [] Distress [] Loneliness/isolation [] Abandonment Spirituality of Patient [] Person of Ling [] Attends Jew of their Ling [] Believes in Prayer [] Reads Bible or Samaritan materials [] There are Spiritual issues to be addressed Test Equipment Mechanic Interventions [] Prayer [] Active listening [] Non-anxious presence [] Spiritual/emotional support [] Crisis/trauma care [] Spiritual counseling [] Bereavement support [] Provided bereavement packet [] Provided Bible/devotional materials [] Provided toy/stuffed animal, coloring book to patient or family member [] Provided Communion [] Anointing/Wall [] Salvation [] Completed spiritual assessment [] Other: Impact on Illness or Injury [] Angry [] Fearful [] Anxious [] Often cries [] Exhaustion [] Unable to work [] Unable to attend episcopal [] Unable to walk/stand [] Unable to read [] Unable to drive [] Unable to eat/drink [] Unable to sleep [] Unable to be with family [] Patient intubated [] Other: Summary Time spent with patient
[2023-02-20] MEDS: ketorolac 30 mg/mL INJ IM (10:55)
[2023-02-20 11:26] LABS: Glucose Point of Care 283 mg/dL (70-110)
--- NOTE | 2023-02-20 15:05 | PM.PN ---
Subjective Subjective: Patient was seen this morning, she tells me that the erythema around her left part of her orbital region, left face has significantly improved, she is legally blind out of the left eye due to macular degeneration, she has chronic tinnitus, she does have a headache, no nausea, vomiting, no fevers Vitals/I&O/Wt Last Vital Signs Temp 97.7 F 02/20/23 12:00 Pulse 50 L 02/20/23 12:00 Resp 18 02/20/23 12:00 BP 150/79 02/20/23 12:00 Pulse Ox 94 02/20/23 12:00 O2 Del Method Room Air 02/20/23 12:00 02/20/23 02/20/23 02/20/23 06:59 14:59 22:59 Intake Total 1300 / 2570 1240 / 1240 Balance 1300 / 2570 1240 / 1240 Weight last 48 hrs Weight 106.594 kg Physical Exam Const: COMMON NORMALS: no acute distress and patient oriented x3 HENMT: OTHER: Left facial region, area of erythema, extending from left nasal bridge, to around left orbital region, sparing left eyelid, significantly improved, crusting hour-long malar process of maxilla Resp: COMMON NORMALS: normal respiratory effort, No retractions, No use of accessory muscles and clear to auscultation bilaterally AUSCULTATION: clear to auscultation bilaterally Cardio: COMMON NORMALS: regular rate, regular rhythm, S1 normal heart sound present and S2 normal heart sound present RATE: regular rate RHYTHM: regular rhythm HEART SOUNDS: S1 normal heart sound present and S2 normal heart sound present GI: COMMON NORMALS: Normal to inspection, nondistended, normoactive bowel sounds present and non-tender Extremity: COMMON NORMALS: no pedal edema Neuro: COMMON NORMALS: patient oriented x3 Psych: COMMON NORMALS: mental status grossly normal Data 02/20/23 05:00 02/20/23 05:00 Micro: Microbiology 02/19/23 12:58 Blood Culture - Preliminary Blood NEGATIVE TO DATE 02/19/23 13:15 Blood Culture - Preliminary Blood NEGATIVE TO DATE A&P Assessment and plan (1) Herpes zoster virus infection of face and ear nerves: Presumptive diagnosis based on description of vesicular lesions a couple of days ago, current mucosal ulcerations and small vesicles, left ear pain and drainage, as well as pain description. Currently without gross hearing loss. No fceial droop this morning (2) Facial cellulitis: Secondary infection with gram-positive or gram-negative organism strongly suspected. Risk factors include diabetes mellitus and status-post splenectomy -Continue vancomycin, continue augmented (3) Diabetes mellitus: Type II, [id number], with cardiac complications and chronic kidney disease stage 3a, chronically on metformin (4) Atrial fibrillation: Chronic, rate controlled, on digoxin and Xarelto (5) Essential hypertension: Chronically on hydrochlorothiazide, losartan, beta-blockade and nitrates. Pressures currently high in part secondary to healthcare setting and current discomfort. (6) Coronary artery disease: Microvascular cardiac disease, chronically on isosorbide and beta-blockade, cardiac catheterization in 2020 did not show obstructive large vessel disease (7) Sleep apnea: Chronic obstructive, uses CPAP at home but has had significant facial irritation from CPAP mask and air. Uses nasal pillows usually. 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 Observation admission for now Continue acyclovir vancomycin, added augmented Oral steroids history of splenectomy Monitor for eye involvement closely Monitor for worsening symptoms Tylenol for pain control Hold home metformin, sliding scale insulin currently, 7.2 hemoglobin A1c Will need to monitor blood sugars with steroids Continue home digoxin and Xarelto Continue home beta-blockade, isosorbide mononitrate and losartan Currently holding hydrochlorothiazide IV fluids overnight Most home herbal medications and vitamins have been held Currently unable to wear CPAP mask secondary to distribution of skin findings along with pain. Telemetry monitoring currently along with oxygen therapy if needed given current inability to adequately treat sleep apnea in this patient with a known history of atrial fibrillation Supportive care otherwise Made her aware that until the crusted over lesions resolve she should avoid being around women and those who have not had chickenpox or vaccination. VTE prophylaxis: Chronically on Xarelto GI Prophylaxis: PPI Telemetry: Ordered secondary to known atrial fibrillation as well as sleep apnea currently unable to wear CPAP mask for reasons beyond her control Avendano: Not currently indicated Line(s): Peripheral IV Disposition plan: Anticipate discharge home likely with resumption of already prescribed valacyclovir and Bactrim. Depending on clinical course and results of cultures, coverage may be adjusted. Will need close follow-up to ensure continued improvement. Code Status: Full code Attestations Medical Necessity Statement*: Patient requires hospitalization for cellulitis, shingles Diagnoses Herpes zoster virus infection of face and ear nerves B02.29 Facial cellulitis L03.211 Diabetes mellitus E11.9 Atrial fibrillation I48.91 Essential hypertension I10 Coronary artery disease I25.10 Sleep apnea G47.30 History of splenectomy Z90.81
[2023-02-20 16:22] LABS: Glucose Point of Care 345 mg/dL (70-110)
[2023-02-20] MEDS: NON-FORMULARY MEDICATION (Pentoxifylline 400 mg tablet extended release) PO (17:13)
[2023-02-20] MEDS: digoxin 250 mcg Tablet PO (20:29)
[2023-02-20] MEDS: magnesium oxide 400 mg tablet 800 MG PO (20:29)
[2023-02-20] MEDS: rivaroxaban 10 mg Tablet 20 MG PO (20:30)
[2023-02-20 22:03] LABS: Glucose Point of Care 315 mg/dL (70-110)
[2023-02-21] VITALS (10 sets, daily range): BP systolic 115–166; BP diastolic 55–78; PULSE 49–60; RESP 16–19; TEMP 36.1–36.9; O2SAT 94–96
[2023-02-21] MEDS: acetaminophen 325 mg Tablet 650 MG PO ×4 (00:35→23:25)
[2023-02-21] MEDS: vancomycin 1,500 MG/300 ML PIGGYBACK 200 MG IV (03:02)
[2023-02-21 05:06] LABS: Basophils % 0.4 %; Eosinophils % 0.4 %; Hematocrit 36.6 % (36-47); Lymphocytes # 3.1 10^3/uL (0.8-4.8); Lymphocytes % 31.6 %; Mean Corpuscular HGB Conc 31.1 g/dL (30-55); Mean Corpuscular Volume 99.5 fl (85-98); Mean Platelet Volume 9.7 fL (7.4-10.4); Monocytes # 0.7 10^3/uL (0.2-0.9); Monocytes % 7.4 %; Neutrophils # 5.88 10^3/uL (1.8-7.7); Nucleated Red Blood Cells % 0 %; Platelet Count 304 10^3/cmm (157-399); Red Blood Count 3.68 10^6/uL (3.85-5.65); Red Cell Distribution Width 13.5 % (12.1-15.1); White Blood Count 9.81 10^3/uL (3.29-11.43)
[2023-02-21] MEDS: acyclovir 1,000 MG in sodium chloride 0.9% 250 ML 270 MG IV ×3 (05:08→23:32)
[2023-02-21] MEDS: sodium chlor 0.9% + KCl 20 mEq 20 MEQ/1,000 ML BAG 75 MEQ IV (05:11)
[2023-02-21 05:30] LABS: Alanine Aminotransferase 15 U/L (0-33); Albumin Level 3.5 g/dL (3.5-5.2); Alkaline Phosphatase 61 U/L (35-105); Anion Gap 13.3 (5-19); Aspartate Amino Transferase 11 U/L (0-32); Blood Urea Nitrogen 27 mg/dL (8-23); Calcium 8.6 mg/dL (8.5-10.5); Carbon Dioxide 23 mmol/L (22-29); Chloride 106 mmol/L (98-107); Globulin 2.6 g/dL (1.3-4.6); Glomerular Filtration Rate 49.4 mL/min (90-130); Glucose 212 mg/dL (65-115); Magnesium 2.2 mg/dL (1.7-2.3); Osmolality Calculated 297 mOsm/kg (285-295); Phosphorus 2.8 mg/dL (2.5-4.5); Potassium 4.3 mmol/L (3.5-5.1); Sodium 138 mmol/L (136-145); Total Bilirubin 0.2 mg/dL (0.15-1.2); Total Protein 6.1 g/dL (6.6-8.7)
[2023-02-21 06:30] LABS: Glucose Point of Care 177 mg/dL (70-110)
[2023-02-21] MEDS: insulin lispro 100 unit/1 mL SUBCUT ×4 (08:58→22:03)
[2023-02-21] MEDS: predniSONE 20 mg Tablet 40 MG PO (10:39)
[2023-02-21] MEDS: amoxicillin-clav 500-125 mg Tablet 1 TAB PO ×3 (10:41→21:24)
[2023-02-21] MEDS: levETIRAcetam 500 mg Tablet PO ×2 (10:42→21:25)
[2023-02-21] MEDS: isosorbide mononitrate ER 30 mg Tablet PO (10:42)
[2023-02-21] MEDS: losartan 50 mg Tablet 100 MG PO (10:43)
[2023-02-21] MEDS: pantoprazole DR 40 mg Tablet PO (10:45)
[2023-02-21] MEDS: NON-FORMULARY MEDICATION (Pentoxifylline 400 mg tablet extended release) PO ×2 (10:46→17:58)
[2023-02-21 12:21] LABS: Glucose Point of Care 195 mg/dL (70-110)
--- NOTE | 2023-02-21 16:32 | PM.PN ---
Subjective Subjective: Patient was seen this morning, she tells me that her erythema has improved, she continues to have drainage and crusting around her nasal bridge, no fevers Vitals/I&O/Wt Last Vital Signs Temp 97.6 F 02/21/23 12:00 Pulse 54 L 02/21/23 12:00 Resp 17 02/21/23 12:00 BP 145/72 02/21/23 12:00 Pulse Ox 96 02/21/23 12:00 O2 Del Method Room Air 02/21/23 00:00 02/21/23 02/21/23 02/21/23 06:59 14:59 22:59 Intake Total 1453.75 / 4058.75 705 / 705 270 / 975 Balance 1453.75 / 4058.75 705 / 705 270 / 975 Physical Exam Const: COMMON NORMALS: no acute distress and patient oriented x3 Resp: COMMON NORMALS: normal respiratory effort, No retractions, No use of accessory muscles and clear to auscultation bilaterally AUSCULTATION: clear to auscultation bilaterally Cardio: COMMON NORMALS: regular rate, regular rhythm, S1 normal heart sound present and S2 normal heart sound present RATE: regular rate RHYTHM: regular rhythm HEART SOUNDS: S1 normal heart sound present and S2 normal heart sound present GI: COMMON NORMALS: Normal to inspection, nondistended, normoactive bowel sounds present and non-tender Extremity: COMMON NORMALS: no pedal edema Neuro: COMMON NORMALS: patient oriented x3 Psych: COMMON NORMALS: mental status grossly normal Skin: NARRATIVE SKIN EXAM: Erythema, significantly improved, left maxillary lesion, sparing the eye, sparing the eyelid Data 02/21/23 04:40 02/21/23 04:40 Micro: Microbiology 02/19/23 12:58 Blood Culture - Preliminary Blood NEGATIVE TO DATE 02/19/23 13:15 Blood Culture - Preliminary Blood NEGATIVE TO DATE A&P Assessment and plan (1) Herpes zoster virus infection of face and ear nerves: Presumptive diagnosis based on description of vesicular lesions a couple of days ago, current mucosal ulcerations and small vesicles, left ear pain and drainage, as well as pain description. Currently without gross hearing loss. No fceial droop this morning (2) Facial cellulitis: Secondary infection with gram-positive or gram-negative organism strongly suspected. Risk factors include diabetes mellitus and status-post splenectomy -Continue vancomycin, continue augmented (3) Diabetes mellitus: Type II, [id number], with cardiac complications and chronic kidney disease stage 3a, chronically on metformin (4) Atrial fibrillation: Chronic, rate controlled, on digoxin and Xarelto (5) Essential hypertension: Chronically on hydrochlorothiazide, losartan, beta-blockade and nitrates. Pressures currently high in part secondary to healthcare setting and current discomfort. (6) Coronary artery disease: Microvascular cardiac disease, chronically on isosorbide and beta-blockade, cardiac catheterization in 2020 did not show obstructive large vessel disease (7) Sleep apnea: Chronic obstructive, uses CPAP at home but has had significant facial irritation from CPAP mask and air. Uses nasal pillows usually. 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 Observation admission for now Continue acyclovir vancomycin, added augmented Oral steroids history of splenectomy Monitor for eye involvement closely Monitor for worsening symptoms Tylenol for pain control Hold home metformin, sliding scale insulin currently, 7.2 hemoglobin A1c Will need to monitor blood sugars with steroids Continue home digoxin and Xarelto Continue home beta-blockade, isosorbide mononitrate and losartan Currently holding hydrochlorothiazide IV fluids overnight Most home herbal medications and vitamins have been held Currently unable to wear CPAP mask secondary to distribution of skin findings along with pain. Telemetry monitoring currently along with oxygen therapy if needed given current inability to adequately treat sleep apnea in this patient with a known history of atrial fibrillation Supportive care otherwise Made her aware that until the crusted over lesions resolve she should avoid being around women and those who have not had chickenpox or vaccination. VTE prophylaxis: Chronically on Xarelto GI Prophylaxis: PPI Telemetry: Ordered secondary to known atrial fibrillation as well as sleep apnea currently unable to wear CPAP mask for reasons beyond her control [place]: Not currently indicated Line(s): Peripheral IV Disposition plan: Anticipate discharge home likely with resumption of already prescribed valacyclovir and Bactrim. Depending on clinical course and results of cultures, coverage may be adjusted. Will need close follow-up to ensure continued improvement. Code Status: Full code Plan for today, continue acyclovir, continue vancomycin, she does complain of significant pain to that location could be developing postherpetic neuralgia we will try low-dose Elavil tonight Attestations Medical Necessity Statement*: Patient requires hospitalization for cellulitis, left macular lesion, with shingles outbreak, cellulitis requiring IV vancomycin, severe shingles outbreak requiring IV acyclovir Diagnoses Herpes zoster virus infection of face and ear nerves B02.29 Facial cellulitis L03.211 Diabetes mellitus E11.9 Atrial fibrillation I48.91 Essential hypertension I10 Coronary artery disease I25.10 Sleep apnea G47.30 History of splenectomy Z90.81
[2023-02-21 17:07] LABS: Glucose Point of Care 275 mg/dL (70-110)
[2023-02-21] MEDS: magnesium oxide 400 mg tablet 800 MG PO (21:24)
[2023-02-21] MEDS: rivaroxaban 10 mg Tablet 20 MG PO (21:25)
[2023-02-21] MEDS: amitriptyline 25 mg Tablet 12.5 MG PO (21:27)
[2023-02-21 21:32] LABS: Glucose Point of Care 271 mg/dL (70-110)
[2023-02-22] VITALS: BP 132/70; PULSE 51; RESP 18; TEMP 36.5; O2SAT 94
[2023-02-22 02:41] LABS: Basophils % 0.2 %; Hematocrit 38.2 % (36-47); Lymphocytes # 3.4 10^3/uL (0.8-4.8); Mean Corpuscular HGB Conc 31.7 g/dL (30-55); Mean Corpuscular Hemoglobin 31.1 pg (27-33); Mean Corpuscular Volume 98.2 fl (85-98); Mean Platelet Volume 9.8 fL (7.4-10.4); Monocytes # 0.5 10^3/uL (0.2-0.9); Monocytes % 4.4 %; Neutrophils # 6.94 10^3/uL (1.8-7.7); Neutrophils % 63.8 %; Nucleated Red Blood Cells % 0 %; Platelet Count 333 10^3/cmm (157-399); Red Blood Count 3.89 10^6/uL (3.85-5.65); Red Cell Distribution Width 13.5 % (12.1-15.1); White Blood Count 10.88 10^3/uL (3.29-11.43)
[2023-02-22 03:00] LABS: Alanine Aminotransferase 29 U/L (0-33); Albumin Level 3.9 g/dL (3.5-5.2); Alkaline Phosphatase 63 U/L (35-105); Anion Gap 11.5 (5-19); Aspartate Amino Transferase 19 U/L (0-32); Blood Urea Nitrogen 25 mg/dL (8-23); Calcium 8.9 mg/dL (8.5-10.5); Carbon Dioxide 25 mmol/L (22-29); Chloride 102 mmol/L (98-107); Globulin 3.4 g/dL (1.3-4.6); Glomerular Filtration Rate 55.1 mL/min (90-130); Glucose 173 mg/dL (65-115); Magnesium 2.2 mg/dL (1.7-2.3); Osmolality Calculated 287 mOsm/kg (285-295); Phosphorus 2.6 mg/dL (2.5-4.5); Potassium 4.5 mmol/L (3.5-5.1); Sodium 134 mmol/L (136-145); Total Bilirubin 0.2 mg/dL (0.15-1.2); Total Protein 7.3 g/dL (6.6-8.7)
[2023-02-22 03:04] LABS: Vancomycin Trough 9.1 ug/mL (10-15)
[2023-02-22] MEDS: vancomycin 1,500 MG/300 ML PIGGYBACK 200 MG IV (03:42)
[2023-02-22 04:00] VITALS: BP 161/71; PULSE 46; RESP 18; TEMP 36.4; O2SAT 97
[2023-02-22 06:34] VITALS: PULSE 47
[2023-02-22 06:51] LABS: Glucose Point of Care 156 mg/dL (70-110)
[2023-02-22 07:24] VITALS: BP 157/74; PULSE 51; RESP 16; TEMP 36.4; O2SAT 98
[2023-02-22] MEDS: losartan 50 mg Tablet 100 MG PO (08:29)
[2023-02-22] MEDS: amoxicillin-clav 500-125 mg Tablet 1 TAB PO (08:29)
[2023-02-22] MEDS: pantoprazole DR 40 mg Tablet PO (08:30)
[2023-02-22] MEDS: isosorbide mononitrate ER 30 mg Tablet PO (08:30)
[2023-02-22] MEDS: predniSONE 20 mg Tablet 40 MG PO (08:30)
[2023-02-22] MEDS: levETIRAcetam 500 mg Tablet PO (08:32)
[2023-02-22] MEDS: NON-FORMULARY MEDICATION (Pentoxifylline 400 mg tablet extended release) PO (08:32)
[2023-02-22] MEDS: insulin lispro 100 unit/1 mL SUBCUT ×2 (08:34→12:29)
[2023-02-22] MEDS: metoprolol tartrate 25 mg Tablet PO (08:34)
[2023-02-22] MEDS: acyclovir 1,000 MG in sodium chloride 0.9% 250 ML 270 MG IV (08:38)
[2023-02-22 10:55] LABS: Glucose Point of Care 185 mg/dL (70-110)
[2023-02-22 11:19] VITALS: BP 161/90; PULSE 48; RESP 18; TEMP 36.6; O2SAT 94
--- NOTE | 2023-02-22 11:42 | P.DS_ITS ---
Discharge Providers Date of Admission: 02/19/23 15:03 Date of Discharge: February 22, 2023 Attending Provider at Admission: Justa Martinez MD Attending Provider at Discharge: Darryl Uribe MD Primary Care Provider: Peña Basilio MD Diagnoses at Discharge Discharge Diagnosis (1) Herpes zoster virus infection of face and ear nerves: Status: Acute (2) Facial cellulitis: Status: Acute (3) Diabetes mellitus: Status: Chronic (4) Atrial fibrillation: Status: Chronic Permanent problem details: On Digoxin and Xarelto (5) Essential hypertension: Status: Chronic (6) Coronary artery disease: Status: Chronic (7) Sleep apnea: Status: Chronic (8) History of splenectomy: Status: Chronic Permanent problem details: 2015 Reason for Visit Reason for Visit: sent by vaibhav / [facility] Course Hospital Course Huang Botello is a 67 year old female who presented to the emergency room from Dr. Basilio office for evaluation and admission.? Over the last week or so patient has had intermittent episodes of shooting pain from the inside of her mouth on the left side towards her left ear.? She describes the pain as shooting out her left ear.? The pain started worsening approximately 5 days ago.? She began to have some redness and swelling to the left side of her face over the weekend.? On Saturday morning symptoms were much worse and she was seen at the urgent care clinic.? She had swelling around her left eye at the time along with erythema to the left face.? Left-sided facial droop was noted.? A vesicular rash was seen on the nose as were small vesicles on the inside of the mouth on the left side.? She was felt to have herpes zoster with possible secondary infection.? She was given prescription for valacyclovir and Bactrim.? She filled the Bactrim on Saturday.? The pharmacy did not have valacyclovir available for her to pharmacy picking technician until Saturday.? She took 2 doses of it yesterday.? Today she was seen by Dr. Basilio for follow-up.? She has started having oozing and crusting around the left side of her nose, and her left nares as well as in her left ear.? The swelling of her face had also increased.? Dr. Basilio took a culture from the nose wound and noticed continued spread of erythema and swelling.? He checked her left eye and did not note any vesicles in the left eye.? She denies any pain in the eye or changes in vision.? Pain is predominantly in the left ear, along the left cheek and in the left side of her mouth.? Oral pain is worse with swallowing.? No drooling.? She has had fever last night.? She has been taking Tylenol for pain.? She has been able to take her other medications.? No bleeding.? She had chickenpox as a child.? She had not had shingles vaccine.? In the emergency room she received empiric acyclovir and vancomycin.? She is being admitted for further treatment and close monitoring given facial involvement and rapid progression of skin findings over the last 24 hours or so. Patient was admitted to [facility] for cellulitis, with shingles, she received IV antibiotic therapy, IV acyclovir, shingles in cellulitis spares eyelid, no significant evidence clinically of orbital or preseptal cellulitis. 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 We will discharge her on 7 more days of valacyclovir, 5 more days of p.o. antibiotic, for postherpetic neuralgia have discharged her on Elavil 25 mg at bedtime with tramadol to be used sparingly for pain, follow-up with primary care provider in a month for consideration of shingles vaccination. Patient was advised to keep area clean and dry, keep area covered as best as she can, avoid or nursing individuals, avoid patient is under the age of 11 years old, avoid immunocompromised individuals. 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 prednisone, follow-up with neurology as outpatient. Denies any other focal neurologic deficits, Physical Exam Const: COMMON NORMALS: no acute distress and patient oriented x3 Resp: COMMON NORMALS: normal respiratory effort, No retractions, No use of accessory muscles and clear to auscultation bilaterally AUSCULTATION: clear to auscultation bilaterally Cardio: COMMON NORMALS: regular rate, regular rhythm, S1 normal heart sound present and S2 normal heart sound present RATE: regular rate RHYTHM: regular rhythm HEART SOUNDS: S1 normal heart sound present and S2 normal heart sound present GI: COMMON NORMALS: Normal to inspection, nondistended, normoactive bowel sounds present and non-tender Extremity: COMMON NORMALS: no pedal edema Neuro: COMMON NORMALS: patient oriented x3, CN's II-XII intact bilaterally, moves all extremities, no focal motor deficits and no sensory deficits noted OTHER: Mild left facial droop Psych: COMMON NORMALS: mental status grossly normal Discharge Data Studies Completed and Pending Pending at discharge Category Date Time Status Blood Culture Stat Lab 02/19/23 13:15 Results Complete Blood Count w/Auto AM LABS Lab 02/23/23 04:00 Ordered Comprehensive Metabolic Panel AM LABS Lab 02/23/23 04:00 Ordered Magnesium AM LABS Lab 02/23/23 04:00 Ordered Phosphorus AM LABS Lab 02/23/23 04:00 Ordered Laboratory Results WBC 10.88 10^3/uL (3.29-11.43) 02/22/23 02:20 Corrected WBC Cancelled 02/19/23 12:56 RBC 3.89 10^6/uL (3.85-5.65) 02/22/23 02:20 Hgb 12.10 g/dL (11.27-16.99) 02/22/23 02:20 Hct 38.2 % (36-47) 02/22/23 02:20 MCV 98.2 fl (85-98) H 02/22/23 02:20 MCH 31.1 pg (27-33) 02/22/23 02:20 MCHC 31.7 g/dL (30-55) 02/22/23 02:20 RDW 13.5 % (12.1-15.1) 02/22/23 02:20 Plt Count 333 10^3/cmm (157-399) 02/22/23 02:20 MPV 9.8 fL (7.4-10.4) 02/22/23 02:20 Gran % Cancelled 02/19/23 12:56 Neut % (Auto) 63.8 % 02/22/23 02:20 Lymph % (Auto) 31.0 % 02/22/23 02:20 [place] % (Auto) 4.4 % 02/22/23 02:20 Eos % (Auto) 0.0 % 02/22/23 02:20 Baso % (Auto) 0.2 % 02/22/23 02:20 Neut # (Auto) 6.94 10^3/uL (1.8-7.7) 02/22/23 02:20 Lymph # (Auto) 3.4 10^3/uL (0.8-4.8) 02/22/23 02:20 [place] # (Auto) 0.5 10^3/uL (0.2-0.9) 02/22/23 02:20 Eos # (Auto) 0.0 10^3/uL (0.0-0.8) 02/22/23 02:20 Baso # (Auto) 0.0 10^3/uL (0.0-0.1) 02/22/23 02:20 Absolute Gran (auto) Cancelled 02/19/23 12:56 Nucleated RBC % (auto) 0 % 02/22/23 02:20 Nucleated RBCs # 0.0 /100WBC 02/22/23 02:20 Sodium 134 mmol/L (136-145) L 02/22/23 02:20 Potassium 4.5 mmol/L (3.5-5.1) 02/22/23 02:20 Chloride 102 mmol/L (98-107) 02/22/23 02:20 Carbon Dioxide 25 mmol/L (22-29) 02/22/23 02:20 Anion Gap 11.5 (5-19) 02/22/23 02:20 BUN 25 mg/dL (8-23) H 02/22/23 02:20 Creatinine 1.0 mg/dL (0.5-0.9) H 02/22/23 02:20 GFR Calculation 55.1 mL/min (90-130) L 02/22/23 02:20 Glucose 173 mg/dL (65-115) H 02/22/23 02:20 POC Glucose 185 mg/dL (70-110) H 02/22/23 10:47 Estimat Average Glucose 160 02/20/23 05:00 Hemoglobin A1c 7.2 % (4.0-6.0) H 02/20/23 05:00 Calculated Osmolality 287 mOsm/kg (285-295) 02/22/23 02:20 Calcium 8.9 mg/dL (8.5-10.5) 02/22/23 02:20 Phosphorus 2.6 mg/dL (2.5-4.5) 02/22/23 02:20 Magnesium 2.2 mg/dL (1.7-2.3) 02/22/23 02:20 Total Bilirubin 0.2 mg/dL (0.15-1.2) 02/22/23 02:20 AST 19 U/L (0-32) 02/22/23 02:20 ALT 29 U/L (0-33) 02/22/23 02:20 Alkaline Phosphatase 63 U/L (35-105) 02/22/23 02:20 Total Protein 7.3 g/dL (6.6-8.7) 02/22/23 02:20 Albumin 3.9 g/dL (3.5-5.2) 02/22/23 02:20 Globulin 3.4 g/dL (1.3-4.6) 02/22/23 02:20 Vancomycin Trough 9.1 ug/mL (10-15) L 02/22/23 02:20 Digoxin 0.9 ng/mL (0.6-1.2) 02/19/23 12:58 Vitals Last Vital Signs Temp 97.9 F 02/22/23 11:19 Pulse 48 L 02/22/23 11:19 Resp 18 02/22/23 11:19 BP 161/90 02/22/23 11:19 Pulse Ox 94 02/22/23 11:19 O2 Del Method Room Air 02/22/23 11:19 Discharge Plan Discharge Patient Disposition: Home Condition: Stable Prescriptions: New (DME) CPAP tubing and mask See Rx Instructions .Route .MEDSUPPLY Qty: 1 0RF Rx Instructions: Please provide replacement mask and tubing due to contamination from medical condition prednisone 20 mg Tablet 40 mg PO DAILY 2 Days Qty: 4 0RF amitriptyline 25 mg Tablet 25 mg PO BEDTIME 30 Days Qty: 30 0RF doxycycline hyclate 100 mg tablet 100 mg PO BID 5 Days Qty: 10 0RF amoxicillin-pot clavulanate 875-125 mg tablet 1 tab PO BID 5 Days Qty: 10 0RF tramadol 50 mg tablet 50 mg PO Q12H PRN (Reason: pain) 7 Days Qty: 14 0RF Continued levetiracetam 500 mg tablet 500 mg PO BID digoxin 250 mcg (0.25 mg) tablet 250 mcg PO BEDTIME vitamin B complex [B Complex-Vitamin B12] Tablet 1 tab PO QAM coenzyme Q10 [Co Q-10] 100 mg capsule 100 mg PO QAM turmeric root extract 500 mg capsule 500 mg PO BID Patient Comments: bid cholecalciferol (vitamin D3) 25 mcg (1,000 unit) capsule 25 mcg PO BEDTIME mupirocin 2 % ointment 1 applic topical TID Qty: 22 0RF losartan 100 mg tablet 100 mg PO QAM Qty: 90 1RF hydrochlorothiazide 25 mg tablet 25 mg PO QAM Qty: 90 1RF metoprolol tartrate 25 mg tablet See Rx Instructions .ROUTE .COMPLEX Rx Instructions: 50mg po in the am and 25mg po at bedtime omega-3 acid ethyl esters 1 gram capsule 2 g PO BID nitroglycerin 0.3 mg tablet, sublingual 0.3 mg sublingual Q5M PRN (Reason: chest pain) Qty: 30 0RF Rx Instructions: do not exceed 3 doses per episode vitamin E 670 mg (1,000 unit) Capsule 1 cap PO DAILY zinc acetate 50 mg (zinc) Capsule 50 mg PO DAILY Tylenol Ex Str Rapid Release 500 mg Tablet 500 mg PO Q6H PRN (Reason: Pain) berberine-herbal comb no.18 Capsule 1 cap PO DAILY PreserVision AREDS 2,148 mcg-113 mg-45 mg-17.4mg Tablet 1 tab PO BID Rx Instructions: administer with AM and PM meals magnesium oxide 400 mg magnesium Tablet 800 mg PO BEDTIME isosorbide mononitrate 30 mg tablet extended release 24 hr 30 mg PO BID pentoxifylline 400 mg tablet extended release See Rx Instructions .ROUTE .COMPLEX Rx Instructions: 800mg (2 tabs) po in the am and 400mg (1 tab) po at bedtime metformin 500 mg tablet extended release 24 hr 1,000 mg PO QAM Xarelto 20 mg tablet 20 mg PO BEDTIME Rx Instructions: must administer with evening meal valacyclovir 1 gram tablet 1,000 mg PO TID 7 Days Qty: 21 0RF Rx Instructions: for 7 days rx filled 02/17/23 Discontinued sulfamethoxazole-trimethoprim [Bactrim DS] 800-160 mg tablet 1 tab PO BID 5 Days Qty: 10 0RF Rx Instructions: for 5 days rx filled 02/17/23 Discharge Orders: Discharge Order (Routine); Ordered 02/22/23 Ordered By: Darryl Uribe Referrals: Peña Basilio MD [Primary Care Provider] - John Coates MD [Physician] - 1 month Discharge Diet: Cardiac Discharge Activity: Resume usual activity Patient Instructions: Opioid Safety Activity Restrictions/Additional Instructions: - Please continue to self isolate, socially distance -Please keep lesions covered -You are at high infectious risk as long as lesions are open and draining -For now I would completely avoid any person under the age of 1, any person who is or , or anyone who is immunocompromised -please us tramadol sparingly for pain, do not drive or operate heavy if she or drink while taking medication -Elavil is supposed to help you with postherpetic neuralgia -In a month or when you are lesions have stopped erupting, which ever comes first, please discuss with primary care provider of shingles vaccination -Continue valacyclovir for 7 more days Discharge Attestations Time Spent in Discharge Care*: greater than 30 min Quality Metrics Clinical Quality Measures [ No reported AMI, CVA or VTE this stay] Coding Level of Care Code 19993 Total time (in minutes) for Discharge: 45 Diagnoses Herpes zoster virus infection of face and ear nerves B02.29 Facial cellulitis L03.211 Diabetes mellitus E11.9 Atrial fibrillation I48.91 Essential hypertension I10 Coronary artery disease I25.10 Sleep apnea G47.30 History of splenectomy Z90.81
[2023-02-22 12:44] VITALS: BP 161/90; PULSE 48; RESP 18; TEMP 36.6; O2SAT 94
== END 2023-02-22 14:29 | disposition home or self-care (01) ==
LOC: ER 14:08 → MEDSURG 15:04
PROVIDERS: Admitting Provider Hospitalist; Emergency Provider Family Medicine; PCP Family Medicine; Visit Provider Family Medicine
DX: B02.29 Other postherpetic nervous system involvement (principal); L03.211 Cellulitis of face; E11.9 Type 2 diabetes mellitus without complications; I48.91 Unspecified atrial fibrillation; I10 Essential (primary) hypertension; I25.10 Atherosclerotic heart disease of native coronary artery without angina pectoris; G47.30 Sleep apnea, unspecified; Z90.81 Acquired absence of spleen; H54.8 Legal blindness, as defined in USA; H93.19 Tinnitus, unspecified ear; G51.0 Bell's palsy
CPT/HCPCS: 36415; 36416; 80048; 80053; 80162; 80202; 82962; 83036; 83735; 84100; 85025; 87040; 96365; 96366; 96367; 96372; 99285; G0378; J0133; J1815; J1885; J3370; J3480; J7050; J7512

== ENCOUNTER 2023-03-21 10:00 | Outpatient (CLI) | payer MEDICARE, MEDICAID, SELFPAY ==
--- NOTE | 2023-03-21 10:28 | NM_ITS ---
WS: [id number] NUCLEAR MEDICINE GASTRIC STUDY CLINICAL INFORMATION: DELAYED GASTRIC EMPTY TECHNIQUE: Following oral ingestion of cooked egg mixed with 0.99 mCi technetium 99m sulfur colloid, anterior images of the stomach were obtained over the course of 90 minutes. Activity curve was perfor med over the course of 90 minutes with linear regression analysis. COMPARISON: None. FINDINGS: Oral ingestion of cooked egg mixture. T1 half emptying = 116 minutes. 17% emptying at 60 minutes. 53% emptying at 120 minutes. IMPRESSION: Slightly delayed gastric emptying at the upper end of the range with T1 half emptying 116 minutes. ( Normal median T1 half is considered 90 minutes (45-110) *Normal median T1 half 90 minutes for solid egg meal (45-110 minutes). Delayed gastric retention is defined as 90% retained at 1 hour, 60% at 2 hours, 30% at 3 hours, and 10% at 4 hours (normal percent gastric retention is 37-90% at 1 hour, 30-60% at 2 hours, and 0-10% a t 4 hours).
== END 2023-03-21 10:01 | disposition home or self-care (01) ==
PROVIDERS: PCP Family Medicine; Visit Provider Internal Medicine
DX: K30 Functional dyspepsia (principal)
CPT/HCPCS: 78264; A9541

== ENCOUNTER → 2023-04-11 11:11 | Outpatient (BNVA) | payer MEDICARE, MEDICAID, SELFPAY | PROVIDERS: PCP Family Medicine; Visit Provider Psychiatry & Neurology Neurology | DX: B02.30 Zoster ocular disease, unspecified (principal); E11.9 Type 2 diabetes mellitus without complications; E78.5 Hyperlipidemia, unspecified; Z79.84 Long term (current) use of oral hypoglycemic drugs; Z86.19 Personal history of other infectious and parasitic diseases | CPT/HCPCS: 99202; 99214 ==

== ENCOUNTER → 2023-06-19 10:46 | Outpatient (BNVA) | payer MEDICARE, MEDICAID, SELFPAY | PROVIDERS: PCP Family Medicine; Visit Provider Psychiatry & Neurology Neurology | DX: G40.919 Epilepsy, unspecified, intractable, without status epilepticus (principal); B02.30 Zoster ocular disease, unspecified; I48.91 Unspecified atrial fibrillation; Z79.01 Long term (current) use of anticoagulants; Z87.891 Personal history of nicotine dependence | CPT/HCPCS: 99203 ==

== ENCOUNTER 2023-06-25 13:48 | Outpatient (CLI) | payer MEDICARE, MEDICAID, SELFPAY ==
--- NOTE | 2023-06-25 13:55 | MM_ITS ---
WS: [id number] BILATERAL 3D TOMOSYNTHESIS DIGITAL SCREENING MAMMOGRAPHY WITH CAD CLINICAL INFORMATION: SCREENING HISTORY: Screening mammogram. No current complaints. COMPARISON: 2021 TECHNIQUE: Bilateral CC and MLO views. FINDINGS: Scattered fibroglandular densities bilaterally. No suspicious focal mass, asymmetry, calcifications, or architectural distortion. No evidence of malignancy. Punctate and lucent centered calcifications. Vascular calcification IMPRESSION: MM/[place] [id number] BI-RADS: 2-Benign FOLLOW UP: 1 Year Follow-up Recommend return to annual screening mammography.
== END 2023-06-25 13:49 | disposition home or self-care (01) ==
LOC: RAD 13:48
PROVIDERS: PCP Family Medicine; Visit Provider Physician Assistant
DX: Z12.31 Encounter for screening mammogram for malignant neoplasm of breast (principal)
CPT/HCPCS: 77063; 77067

== ENCOUNTER → 2023-08-13 07:37 | Outpatient (BNVA) | payer MEDICARE, MEDICAID, SELFPAY | PROVIDERS: PCP Family Medicine; Visit Provider Psychiatry & Neurology Neurology | DX: G40.919 Epilepsy, unspecified, intractable, without status epilepticus (principal) | CPT/HCPCS: 95813; 95819 ==

== ENCOUNTER → 2023-08-20 09:53 | Outpatient (BNVA) | payer MEDICARE, MEDICAID, SELFPAY | PROVIDERS: PCP Family Medicine; Visit Provider Nurse Practitioner Family | DX: I48.0 Paroxysmal atrial fibrillation (principal); I25.10 Atherosclerotic heart disease of native coronary artery without angina pectoris; I12.9 Hypertensive chronic kidney disease with stage 1 through stage 4 chronic kidney disease, or unspecified chronic kidney disease; N18.9 Chronic kidney disease, unspecified; Z87.891 Personal history of nicotine dependence; Z79.01 Long term (current) use of anticoagulants | CPT/HCPCS: 99214 ==

== ENCOUNTER → 2023-09-02 14:41 | Outpatient (BNVA) | payer MEDICARE, MEDICAID, SELFPAY | PROVIDERS: PCP Family Medicine; Visit Provider Psychiatry & Neurology Neurology | DX: G40.919 Epilepsy, unspecified, intractable, without status epilepticus (principal); B02.30 Zoster ocular disease, unspecified | CPT/HCPCS: 99212 ==

== ENCOUNTER → 2023-10-09 10:26 | Outpatient (BNVA) | payer MEDICARE, MEDICAID, SELFPAY | PROVIDERS: PCP Family Medicine; Visit Provider Internal Medicine | DX: E11.59 Type 2 diabetes mellitus with other circulatory complications (principal); E78.5 Hyperlipidemia, unspecified; I10 Essential (primary) hypertension; E11.65 Type 2 diabetes mellitus with hyperglycemia; Z79.84 Long term (current) use of oral hypoglycemic drugs | CPT/HCPCS: 99214 ==

== ENCOUNTER 2024-01-02 12:10 | Outpatient (CLI) | payer MEDICARE, MEDICAID, SELFPAY ==
[2024-01-02 13:15] LABS: Estmated Average Glucose 192; Hemoglobin A1C 8.3 % (4.0-6.0)
[2024-01-02 13:17] LABS: Alanine Aminotransferase 24 U/L (0-33); Albumin Level 3.9 g/dL (3.5-5.2); Alkaline Phosphatase 76 U/L (35-105); Anion Gap 17.1 (5-19); Aspartate Amino Transferase 16 U/L (0-32); Blood Urea Nitrogen 29 mg/dL (8-23); Carbon Dioxide 24 mmol/L (22-29); Chloride 102 mmol/L (98-107); Chol HDL Ratio 4.87 mg/dL (0.0-4.40); Cholesterol 151 mg/dL (0-200); Globulin 3.9 g/dL (1.3-4.6); Glomerular Filtration Rate 62.1 mL/min (90-130); Glucose 173 mg/dL (65-115); HDL Cholesterol 31 mg/dL (60-100); Osmolality Calculated 298 mOsm/kg (285-295); Potassium 4.1 mmol/L (3.5-5.1); Sodium 139 mmol/L (136-145); Total Bilirubin 0.4 mg/dL (0.15-1.2); Total Protein 7.8 g/dL (6.6-8.7); Triglycerides 411 mg/dL (0-150)
[2024-01-02 13:20] LABS: Creatinine Urine, Random 91 mg/dL (28-217); Microalbum Creatinine Ratio Ur 11 mg/dL (0-20); Microalbumin Random Urine 1 ug/dL (0-20)
[2024-01-02 14:18] LABS: LDL Cholesterol Direct 59 mg/dL (0-100)
== END 2024-01-02 12:11 | disposition home or self-care (01) ==
LOC: LAB 12:12
PROVIDERS: PCP Family Medicine; Visit Provider Internal Medicine
DX: E11.9 Type 2 diabetes mellitus without complications (principal); E11.59 Type 2 diabetes mellitus with other circulatory complications; E78.5 Hyperlipidemia, unspecified; I10 Essential (primary) hypertension
CPT/HCPCS: 36415; 80053; 80061; 82044; 83036; 83721

== ENCOUNTER → 2024-01-03 10:45 | Outpatient (BNVA) | payer MEDICARE, MEDICAID, SELFPAY | PROVIDERS: PCP Family Medicine; Visit Provider Internal Medicine | DX: E11.59 Type 2 diabetes mellitus with other circulatory complications (principal); E11.9 Type 2 diabetes mellitus without complications; E78.5 Hyperlipidemia, unspecified; I10 Essential (primary) hypertension; Z79.84 Long term (current) use of oral hypoglycemic drugs | CPT/HCPCS: 99214 ==

== ENCOUNTER → 2024-02-17 14:20 | Outpatient (BNVA) | payer MEDICARE, MEDICAID, SELFPAY | PROVIDERS: PCP Family Medicine; Visit Provider Internal Medicine | DX: I48.0 Paroxysmal atrial fibrillation (principal); R06.02 Shortness of breath; Z79.01 Long term (current) use of anticoagulants; Z78.9 Other specified health status; E78.5 Hyperlipidemia, unspecified; I12.9 Hypertensive chronic kidney disease with stage 1 through stage 4 chronic kidney disease, or unspecified chronic kidney disease; N18.9 Chronic kidney disease, unspecified; E11.22 Type 2 diabetes mellitus with diabetic chronic kidney disease; Z87.891 Personal history of nicotine dependence; Z79.84 Long term (current) use of oral hypoglycemic drugs | CPT/HCPCS: 99214 ==

== ENCOUNTER 2024-03-19 12:43 | Outpatient (CLI) | payer MEDICARE, MEDICAID, SELFPAY ==
--- NOTE | 2024-03-19 12:45 | USCV_ITS ---
Megan Botello Age: 68 Gender: F : 1955 Exam Date: 03/19/2024 13:08 Ordering Phys: Darion Ford M.D ([email or web address]) Technologist: Exam Location: [facility] [place] Indication: cp BP: 124 / 75 HR: 60 Rhythm: Sinus Technical Quality: Adequate MEASUREMENTS (Male / Female) Normal Values 2D ECHO LV Diastolic Diameter PLAX 5.1 cm 4.2 - 5.9 / 3.9 - 5.3 cm IVS Diastolic Thickness 1.0 cm 0.6 - 1.0 / 0.6 - 0.9 cm IVS Systolic Thickness 1.4 cm LVPW Diastolic Thickness 1.3 cm 0.6 - 1.0 / 0.6 - 0.9 cm LVPW Systolic Thickness 1.8 cm LVOT Diameter 2.2 cm LV Ejection Fraction 2D Teich 68.5 % LV Ejection Fraction MOD 4C 74.7 % LV Ejection Fraction MOD 2C 67.3 % LV Ejection Fraction 2C AL 68.2 % LA Diameter 3.8 cm RA Systolic Volume 4C AL 91.8 ml RA Systolic Volume 4C MOD 92.9 ml Aorta at Sinotubular Diameter 2.3 cm M-MODE LA Ao Ratio MM 1.5 MV E Point Septal Separation 1.7 cm AV Cusp Separation MM 3.3 cm DOPPLER AV Peak Velocity 147.0 cm/s LVOT Peak Velocity 108.0 cm/s AV Area Cont Eq vti 3.1 cm squared AV Area Cont Eq pk 2.7 cm squared MV Peak Velocity 119.0 cm/s MV Area PHT 4.9 cm squared Mitral E to A Ratio 1.2 TV Peak Velocity 324.5 cm/s TR Peak Velocity 375.0 cm/s TR Peak Gradient 56.3 mmHg TV Peak E Velocity 105.0 cm/s Right Atrial Pressure 3.0 mmHg Pulmonary Artery Systolic Pressu 59.3 mmHg PV Peak Velocity 101.0 cm/s FINDINGS Left Ventricle Normal left ventricular size, systolic function and wall thickness, with no regional wall motion abnormalities. Left ventricular ejection fraction is estimated at 60 %. Grade II/IV diastolic dysfunction, moderately elevated filling pressures. Right Ventricle The right ventricle is normal in size and function. Mild pulmonary hypertension, RVSP 39 mmHg. Right Atrium The right atrium is normal in size. Left Atrium Moderately increased left atrial size. Mitral Valve Moderately thickened mitral valve. Severe mitral annular calcification. No mitral valve stenosis. Trace mitral valve regurgitation. Aortic Valve Moderate aortic valve calcification. No aortic valve stenosis. Trace aortic valve regurgitation. Tricuspid Valve Structurally normal tricuspid valve without significant stenosis, there is mild regurgitation. Pulmonic Valve Structurally normal pulmonic valve without significant stenosis. There is no pulmonic regurgitation. Pericardium Normal pericardium without effusion. Aorta Normal ascending aorta dimension. IVC The inferior vena cava appears normal. CONCLUSIONS Normal left ventricular size, systolic function and wall thickness, with no regional wall motion abnormalities. Left ventricular ejection fraction is estimated at 60 %. Grade II/IV diastolic dysfunction, moderately elevated filling pressures. Moderately increased left atrial size. Moderately thickened mitral valve. Severe mitral annular calcification. No mitral valve stenosis. Trace mitral valve regurgitation. There is no pericardial effusion. Pulmonary artery systolic pressure is mildly increased. Right atrial pressure is around 5 mm of mercury. Ambika Torres MD (Electronically Signed) Final Date: 20 March 2024 07:43 S
== END 2024-03-19 12:44 | disposition home or self-care (01) ==
LOC: RAD 12:43
PROVIDERS: PCP Family Medicine; Visit Provider Internal Medicine
DX: I50.30 Unspecified diastolic (congestive) heart failure (principal); R06.02 Shortness of breath; I34.81 Nonrheumatic mitral (valve) annulus calcification; I70.0 Atherosclerosis of aorta
CPT/HCPCS: 93306

== ENCOUNTER 2024-05-16 16:23 | Inpatient (IN) | payer MEDICARE, MEDICAID, SELFPAY ==
[2024-05-16] VITALS (8 sets, daily range): BP systolic 100–196; BP diastolic 69–109; PULSE 59–133; RESP 16–18; TEMP 36.8; O2SAT 91–99; BMI 39.1
--- NOTE | 2024-05-16 16:31 | XRR_ITS ---
PROCEDURE INFORMATION: Exam: XR Chest Exam date and time: 05/16/2024 5:11 PM Age: 68 years old Clinical indication: Injury or trauma; Fall; Blunt trauma (contusions or hematomas); Prior surgery; Surgery date: 6+ months; Surgery type: Cardiac cath TECHNIQUE: Imaging protocol: Radiologic exam of the chest. Views: 1 view. COMPARISON: CR XR chest 1V portable [id number] 06/21/2020 12:55 PM FINDINGS: Lungs: Unremarkable. No consolidation. Pleural spaces: Unremarkable. No pleural effusion. No pneumothorax. Heart/Mediastinum: Mild cardiomegaly. Bones/joints: Unremarkable. XR/XR chest 1V portable [id number] IMPRESSION: Mild cardiomegaly.
--- NOTE | 2024-05-16 16:31 | XRR_ITS ---
PROCEDURE INFORMATION: Exam: XR Left Hip Exam date and time: 05/16/2024 5:11 PM Age: 68 years old Clinical indication: Injury or trauma; Fall; Blunt trauma (contusions or hematomas); Left; Hip TECHNIQUE: Imaging protocol: Radiologic exam of the left hip. Views: 2 or 3 views hip with pelvis when performed. COMPARISON: CR XR lumbar spine 2-3V* [id number] 03/12/2018 12:06 PM FINDINGS: Bones/joints: Subtrochanteric hip fracture with foreshortening. Soft tissues: Unremarkable. XR/XR hip LT 2-3V wo/w pel* [id number] IMPRESSION: Subtrochanteric hip fracture with foreshortening.
--- NOTE | 2024-05-16 16:47 | W.ED.EXTPRO ---
HPI - Extremity Problem General: Chief complaint: Extremity Injury, Lower Stated complaint: FALL Time Seen by Provider: 05/16/24 16:24 Source: patient and EMS Mode of arrival: EMS Limitations: no limitations History of Present Illness: 68-year-old female who states she had tripped and fell in her kitchen and landed on her left hip she states that she has had severe left hip pain since and has not been able to bear weight patient brought in by ambulance she denies any other injuries from her fall denies hitting her head denies any neck pain. Associated symptoms: Deny chest pain, fever(s) or rash Related Data Home Medications Medication Instructions Recorded Confirmed coenzyme Q10 100 mg capsule (Co 100 mg PO QAM 10/21/19 02/17/24 Q-10) metoprolol tartrate 25 mg tablet See Rx Instructions .Route .COMPLEX 06/21/20 02/17/24 omega-3 acid ethyl esters 1 gram 2 g PO BID 06/21/20 02/17/24 capsule cholecalciferol (vitamin D3) 25 25 mcg PO BEDTIME 04/19/21 02/17/24 mcg (1,000 unit) capsule turmeric root extract 500 mg 500 mg PO BID 05/24/22 02/17/24 capsule acetaminophen 500 mg tablet 500 mg PO Q6H PRN Pain 02/19/23 02/17/24 berberine-herbal comb no.18 capsule 1 cap PO DAILY 02/19/23 02/17/24 isosorbide mononitrate 30 mg 30 mg PO BID 02/19/23 02/17/24 tablet,extended release 24 hr magnesium oxide 800 mg PO BEDTIME 02/19/23 02/17/24 pentoxifylline 400 mg See Rx Instructions .Route .COMPLEX 02/19/23 02/17/24 tablet,extended release vitamin E 670 mg (1,000 unit) 1 cap PO DAILY 02/19/23 02/17/24 capsule vitamins A,C,X-htgq-henjhw 2,148 1 tab PO BID 02/19/23 02/17/24 mcg-113 mg-45 mg-17.4 mg tablet (PreserVision AREDS) zinc acetate 50 mg (zinc) capsule 50 mg PO DAILY 02/19/23 02/17/24 Previous Rx's Medication Instructions Recorded nitroglycerin 0.3 mg sublingual 0.3 mg sublingual Q5M PRN chest 06/21/20 tablet pain #30 tabs hydrochlorothiazide 25 mg tablet 25 mg PO QAM #90 tabs 09/24/22 losartan 100 mg tablet 100 mg PO QAM #90 tabs 09/24/22 mupirocin 2 % topical ointment 1 applic topical TID #22 grams 02/17/23 CPAP tubing and mask #1 ea 02/19/23 levetiracetam 500 mg tablet 500 mg PO BID #180 tabs 09/02/23 metformin 500 mg tablet,extended 1,000 mg (2 x 500 mg) PO QAM 90 12/19/23 release 24 hr days #180 tabs digoxin 250 mcg (0.25 mg) tablet 250 mcg PO BEDTIME #90 tabs 01/27/24 rivaroxaban 20 mg tablet (Xarelto) 20 mg PO BEDTIME #90 tabs 01/28/24 Allergies Allergy/AdvReac Type Severity Reaction Status Date / Time amlodipine Allergy rash Verified 02/17/24 14:42 clindamycin Allergy rash Verified 02/17/24 14:42 Latex, Natural Rubber Allergy Rash/itchin Verified 02/17/24 14:42 g morphine Allergy Rash/itchin Verified 02/17/24 14:42 g diltiazem AdvReac Generalized Verified 02/17/24 14:42 edema hydromorphone AdvReac itching Verified 02/17/24 14:42 Review of Systems Const: Denies: fever(s), chills, body aches or change in appetite ENMT: Denies: throat pain or dental pain Card: Denies: chest pain Resp: Denies: dyspnea GI: Denies: abdominal pain, nausea, vomiting or diarrhea Musc: Reports: extremity pain; Denies: neck pain or back pain Skin/Breast: Denies: rash Neuro: Denies: headache(s) PFSH ED PFSH: Medical History Chronic kidney disease Sleep apnea 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 Seizure spontaneously resolved. On keppra. Surgical History History of partial colectomy 2016 History of partial pancreatectomy 2016 History of cholecystectomy 2016 History of splenectomy 2016 History of cataract surgery History of cardiac catheterization 2020 no significant coronary artery disease, slow flow in all vessels, likely with microvascular dysfunction S/P hysterectomy with oophorectomy 08/2004--exploratory laparotomy, total abdominal hysterectomy, bilateral salpingo-oophorectomy and appendectomy-- Performed by Dr Layton in [place], [place]. Due to enlarged ovaries per patient. Patient reports that no cancer was noted. S/P knee surgery 1999-[place] [facility] Dr Chen [place] [facility] [place], [place] S/P hernia repair 2018--large postoperative hernia abdominal surgery in 2015. Repaired with large mesh and extensive reconstruction in [place], [place]. She was told by the surgeons that she has extensive adhesions inside her abdomen. History of exploratory laparotomy 12/2015 exploratory laparotomy via vertical midline supraumbilical incision in [facility]. Extensive surgery including hernia repair, cholecystectomy, resection of pancreas, splenectomy and resection of part of her bowel with re-anastomosis. After surgery she developed a large ventral hernia over surgical incision, corrected in 2017. S/P appendectomy Done at time of open hysterectomy in 2004 S/P shoulder surgery 1981- Performed in [place], [place], right shoulder S/P laparoscopy x 2 Family History Mother Diabetes Heart disease Hypertension Stroke Uterine cancer diagnosed at age 51 or 52 Father Hyperlipidemia Heart disease Hypertension Grandfather Heart disease paternal Hypertension paternal Sister Breast cancer Diagnosed in her late 40s Grandmother Colon cancer Maternal, diagnosed at age 80 Denies family history of Ovarian cancer Thyroid disease Social History Smoking and tobacco/nicotine status: former use of tobacco/nicotine Substance/Drug Use: never Do you think of yourself as: Straight/Heterosexual Physical Exam Const: COMMON NORMALS: no acute distress, patient oriented x3 and healthy appearing HENMT: COMMON NORMALS: normocephalic and atraumatic HEAD & SCALP: normocephalic and atraumatic Eye: COMMON NORMALS: conjunctivae normal CONJUNCTIVA: Yes conjunctivae normal Neck/C-Spine: COMMON NORMALS: full ROM and supple Chest: COMMONS NORMALS: normal inspection of the chest Resp: COMMON NORMALS: normal respiratory effort Cardio: COMMON NORMALS: regular rate, regular rhythm and No murmurs present (Cardio) RATE: regular rate RHYTHM: regular rhythm Extremity: COMMON NORMALS: full ROM NARRATIVE EXTREMITY EXAM: tenderness over left hip Neuro: COMMON NORMALS: patient oriented x3, moves all extremities and no focal motor deficits Psych: COMMON NORMALS: mental status grossly normal, Normal thought process present and cooperative THOUGHT PROCESS: Normal thought process present Skin: COMMON NORMALS: no rashes or lesions noted and no wounds GENERAL SKIN EXAM: no rashes or lesions noted Course Vital Signs: Vital signs: Vital Signs Temperature 98.2 F 05/16/24 16:25 Pulse Rate 62 05/16/24 16:25 Respiratory Rate 18 05/16/24 17:09 Blood Pressure 179/86 05/16/24 16:25 Pulse Oximetry 96 05/16/24 17:09 Oxygen Delivery Me thod Nasal Cannula 05/16/24 16:25 Oxygen Flow Rate 2 05/16/24 16:25 MDM - Extremity (Nontraumatic) Medical Decision Making Patient presents with left hip fracture from a fall spoke to orthopedics along with hospitalist and will admit at this time. Medical Records I reviewed the patient's medical records. All radiology interpretation(s) finalized by discharge Discharge Plan Discharge Patient Disposition: Admitted As Inpatient Clinical Impression: Closed fracture of left hip Condition: Stable Prescriptions: No Action coenzyme Q10 [Co Q-10] 100 mg capsule 100 mg PO QAM turmeric root extract 500 mg capsule 500 mg PO BID Patient Comments: bid cholecalciferol (vitamin D3) 25 mcg (1,000 unit) capsule 25 mcg PO BEDTIME levetiracetam 500 mg tablet 500 mg PO BID Qty: 180 3RF mupirocin 2 % ointment 1 applic topical TID Qty: 22 0RF losartan 100 mg tablet 100 mg PO QAM Qty: 90 1RF hydrochlorothiazide 25 mg tablet 25 mg PO QAM Qty: 90 1RF metformin 500 mg tablet extended release 24 hr 1,000 mg PO QAM 90 Days Qty: 180 1RF digoxin 250 mcg (0.25 mg) tablet 250 mcg PO BEDTIME Qty: 90 3RF Xarelto 20 mg tablet 20 mg PO BEDTIME Qty: 90 3RF Rx Instructions: must administer with evening meal metoprolol tartrate 25 mg tablet See Rx Instructions .ROUTE .COMPLEX Rx Instructions: 50mg po in the am and 25mg po at bedtime omega-3 acid ethyl esters 1 gram capsule 2 g PO BID nitroglycerin 0.3 mg tablet, sublingual 0.3 mg sublingual Q5M PRN (Reason: chest pain) Qty: 30 0RF Rx Instructions: do not exceed 3 doses per episode vitamin E 670 mg (1,000 unit) Capsule 1 cap PO DAILY zinc acetate 50 mg (zinc) Capsule 50 mg PO DAILY acetaminophen 500 mg Tablet 500 mg PO Q6H PRN (Reason: Pain) berberine-herbal comb no.18 Capsule 1 cap PO DAILY PreserVision AREDS 2,148 mcg-113 mg-45 mg-17.4mg Tablet 1 tab PO BID Rx Instructions: administer with AM and PM meals magnesium oxide 400 mg magnesium Tablet 800 mg PO BEDTIME isosorbide mononitrate 30 mg tablet extended release 24 hr 30 mg PO BID pentoxifylline 400 mg tablet extended release See Rx Instructions .ROUTE .COMPLEX Rx Instructions: 800mg (2 tabs) po in the am and 400mg (1 tab) po at bedtime (DME) CPAP tubing and mask See Rx Instructions .Route .MEDSUPPLY Qty: 1 0RF Rx Instructions: Please provide replacement mask and tubing due to contamination from medical condition Referrals: Peña Basilio MD [Primary Care Provider] - Coding Level of Care Code ED Forensic Structural Engineer for Alise Navarrete
[2024-05-16] MEDS: fentaNYL 50 mcg/mL INJ 2mL IVP (17:09)
--- NOTE | 2024-05-16 17:41 | ECG_ITS ---
[facility] Date: 2024-05-16 Pat Name: Megan Botello Department: Room: Gender: Female Transitional Living Specialist: : [id number] Requested By: Katie Salomon Order Number: [id number] [place] MD: CYNTHIA GORE Measurements Intervals [place] Rate: 80 P: 60 OK: 193 QRS: 76 QRSD: 98 T: 115 QT: 400 QTc: 464 Interpretive Statements SINUS RHYTHM POSSIBLE LEFT ATRIAL ENLARGEMENT [-0.1mV P-WAVE IN V1/V2] ST DEVIATION AND MODERATE T-WAVE ABNORMALITY, CONSIDER ANTEROLATERAL ISCHEMIA [-0.1+ mV T-WAVE IN V3-V6] ST DEVIATION AND MODERATE T-WAVE ABNORMALITY, CONSIDER INFERIOR ISCHEMIA [-0.1+ mV T-WAVE IN II/aVF] Compared to ECG 06/21/2020 15:44:11 T-wave abnormality now present Possible ischemia now present Sinus bradycardia no longer present Electronically Signed On 05-18-2024 16:11:10 [facility] by CYNTHIA GORE [email or web address]
[2024-05-16] MEDS: LORazepam 2 mg/mL INJ 1 mL 1 MG IVP ×2 (18:42→20:29)
--- NOTE | 2024-05-16 18:57 | P.HP_ITS ---
Providers/Chief Complaint 2 Primary Care Provider: Peña Basilio MD Chief Complaint: FALL History of Present Illness Pleasant 68-year-old lady with history of atrial fibrillation on anticoagulation, HTN, DM2, CAD, epilepsy, sleep apnea on nightly CPAP, history of severe infection requiring multiple surgical procedures with partial colectomy, pancreatectomy, splenectomy, cholecystectomy. She was grabbing a water bottle in her kitchen and when turning around tripped and fell on the hard kitchen floor with resultant severe pain in the left hip with a guarded, shortened extremity, and ER with finding of close left hip fracture. Orthopedics has been consulted. She has otherwise been at baseline state of health. In ER she is one 1 L nasal cannula oxygen after receiving fentanyl for pain control with some transient somnolence, currently she is awake and alert. Review of Systems 2 Const: Denies: fever(s), chills, body aches or malaise ENMT: Denies: throat pain Card: Denies: chest pain, edema, pre-syncope or dyspnea on exertion Resp: Denies: dyspnea, productive cough, change in phlegm color or hemoptysis GI: Denies: abdominal pain, nausea, vomiting, diarrhea, constipation, hematochezia or melena : Denies: flank pain, urinary frequency or hematuria Musc: Reports: extremity pain; Denies: back pain, joint swelling or joint redness Skin/Breast: Denies: rash or new lesions Neuro: Denies: headache(s) or confusion Endo: Denies: polyuria or polydipsia Medications/Allergies Home Medications Medication Instructions Recorded Confirmed Last Taken Type coenzyme Q10 100 mg capsule (Co 100 mg PO QAM 10/21/19 02/17/24 02/18/23 History Q-10) metoprolol tartrate 25 mg tablet See Rx Instructions .Route .COMPLEX 06/21/20 02/17/24 02/18/23 History nitroglycerin 0.3 mg sublingual 0.3 mg sublingual Q5M PRN chest 06/21/20 02/17/24 Unknown Rx tablet pain #30 tabs omega-3 acid ethyl esters 1 gram 2 g PO BID 06/21/20 02/17/24 02/19/23 History capsule cholecalciferol (vitamin D3) 25 25 mcg PO BEDTIME 04/19/21 02/17/24 02/18/23 History mcg (1,000 unit) capsule turmeric root extract 500 mg 500 mg PO BID 05/24/22 02/17/24 02/18/23 History capsule hydrochlorothiazide 25 mg tablet 25 mg PO QAM #90 tabs 09/24/22 02/17/24 02/18/23 Rx losartan 100 mg tablet 100 mg PO QAM #90 tabs 09/24/22 02/17/24 02/18/23 Rx mupirocin 2 % topical ointment 1 applic topical TID #22 grams 02/17/23 01/03/24 02/19/[address] bowers today CPAP tubing and mask #1 ea 02/19/23 01/03/24 Unknown Rx acetaminophen 500 mg tablet 500 mg PO Q6H PRN Pain 02/19/23 02/17/24 Unknown History berberine-herbal comb no.18 capsule 1 cap PO DAILY 02/19/23 02/17/24 1 Week Ago History ~02/12/23 isosorbide mononitrate 30 mg 30 mg PO BID 02/19/23 02/17/24 02/18/23 History tablet,extended release 24 hr magnesium oxide 800 mg PO BEDTIME 02/19/23 02/17/24 02/18/23 History pentoxifylline 400 mg See Rx Instructions .Route .COMPLEX 02/19/23 02/17/24 02/18/23 History tablet,extended release vitamin E 670 mg (1,000 unit) 1 cap PO DAILY 02/19/23 02/17/24 02/18/23 History capsule vitamins A,C,O-yreg-rzotga 2,148 1 tab PO BID 02/19/23 02/17/24 02/18/23 History mcg-113 mg-45 mg-17.4 mg tablet (PreserVision AREDS) zinc acetate 50 mg (zinc) capsule 50 mg PO DAILY 02/19/23 02/17/24 02/18/23 History levetiracetam 500 mg tablet 500 mg PO BID #180 tabs 09/02/23 02/17/24 Unknown Rx metformin 500 mg tablet,extended 1,000 mg (2 x 500 mg) PO QAM 90 12/19/23 02/17/24 Unknown Rx release 24 hr days #180 tabs digoxin 250 mcg (0.25 mg) tablet 250 mcg PO BEDTIME #90 tabs 01/27/24 02/17/24 Unknown Rx rivaroxaban 20 mg tablet (Xarelto) 20 mg PO BEDTIME #90 tabs 01/28/24 02/17/24 Unknown Rx Allergies Allergy/AdvReac Type Severity Reaction Status Date / Time amlodipine Allergy rash Verified 02/17/24 14:42 clindamycin Allergy rash Verified 02/17/24 14:42 Latex, Natural Rubber Allergy Rash/itchin Verified 02/17/24 14:42 g morphine Allergy Rash/itchin Verified 02/17/24 14:42 g diltiazem AdvReac Generalized Verified 02/17/24 14:42 edema hydromorphone AdvReac itching Verified 02/17/24 14:42 PFSH Acute 2 PFSH: Medical History Chronic kidney disease Sleep apnea 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 Seizure spontaneously resolved. On keppra. Surgical History History of partial colectomy 2016 History of partial pancreatectomy 2016 History of cholecystectomy 2016 History of splenectomy 2016 History of cataract surgery History of cardiac catheterization 2020 no significant coronary artery disease, slow flow in all vessels, likely with microvascular dysfunction S/P hysterectomy with oophorectomy 08/2004--exploratory laparotomy, total abdominal hysterectomy, bilateral salpingo-oophorectomy and appendectomy-- Performed by Dr Layton in [place], [place]. Due to enlarged ovaries per patient. Patient reports that no cancer was noted. S/P knee surgery 1999-Performed by Dr Chen at [facility] [place], [place] S/P hernia repair 2017--large postoperative hernia abdominal surgery in 2015. Repaired with large mesh and extensive reconstruction in [place], [place]. She was told by the surgeons that she has extensive adhesions inside her abdomen. History of exploratory laparotomy 12/2015 exploratory laparotomy via vertical midline supraumbilical incision in [facility]. Extensive surgery including hernia repair, cholecystectomy, resection of pancreas, splenectomy and resection of part of her bowel with re-anastomosis. After surgery she developed a large ventral hernia over surgical incision, corrected in 2018. S/P appendectomy Done at time of open hysterectomy in 2004 S/P shoulder surgery 1982- Performed in [place], [place], right shoulder S/P laparoscopy x 2 Family History Mother Diabetes Heart disease Hypertension Stroke Uterine cancer diagnosed at age 51 or 52 Father Hyperlipidemia Heart disease Hypertension Grandfather Heart disease paternal Hypertension paternal Sister Breast cancer Diagnosed in her late 40s Grandmother Colon cancer Maternal, diagnosed at age 80 Denies family history of Ovarian cancer Thyroid disease Social History Smoking and tobacco/nicotine status: former use of tobacco/nicotine Substance/Drug Use: never Do you think of yourself as: Straight/Heterosexual Vitals/I&O/Wt Last Vital Signs Temp 98.2 F 05/16/24 16:25 Pulse 71 05/16/24 18:21 Resp 18 05/16/24 18:21 BP 196/109 05/16/24 18:21 Pulse Ox 97 05/16/24 18:21 O2 Del Method Nasal Cannula 05/16/24 18:21 O2 Flow Rate 1 05/16/24 18:21 Weight last 48 hrs Weight 109.939 kg Physical Exam 2 Narrative: Accompanied by family including her daughter. Const: COMMON NORMALS: patient oriented x3 and alert GENERAL APPEARANCE: c ooperative ORIENTATION/CONSCIOUSNESS: Yes awake HENMT: COMMON NORMALS: oropharynx normal Neck/C-Spine: COMMON NORMALS: no JVD Resp: COMMON NORMALS: normal respiratory effort and clear to auscultation bilaterally AUSCULTATION: clear to auscultation bilaterally Cardio: COMMON NORMALS: no JVD, regular rhythm, S1 normal heart sound present, S2 normal heart sound present and No murmurs present (Cardio) RHYTHM: regular rhythm HEART SOUNDS: S1 normal heart sound present and S2 normal heart sound present GI: COMMON NORMALS: Normal to inspection, nondistended, normoactive bowel sounds present, Soft to palpation and non-tender PALPATION: Yes Soft to palpation Extremity: COMMON NORMALS: no joint enlargement and no pedal edema OTHER: Everted, shortened LLE. Neuro: COMMON NORMALS: patient oriented x3 and moves all extremities S ENSORIUM/ORIENTATION: Yes alert Skin: COMMON NORMALS: no rashes or lesions noted GENERAL SKIN EXAM: no rashes or lesions noted Data 05/16/24 18:34 05/16/24 18:34 A&P Assessment and plan (1) Closed fracture of left hip: Left hip pain, foreshortened, everted extremity after a fall at home on hard kitchen floor. Reviewed vitals, CBC, CMP, chest x-ray, hip x-ray. Chest x-ray unremarkable on my interpretation, pending official read. Hip x-ray pending official read as well with intertrochanteric left hip fracture, reviewed ER note, discussed with ER provider, orthopedics has been consulted in ER. On anticoagulation with Xarelto. Discussed with her and family risk of bleeding. Anticoagulation is held at current time, pending reassessment and arrangements for hip fracture repair. With history of atrial fibrillation monitor on telemetry. Repeat blood counts with risk of anemia. Right lower extremity SCD for further DVT prophylaxis for now. She otherwise has been at baseline state of health, has not had any chest pain or pressure. No noted ST deviations to dentally on chest x-ray. Hypertensive and severe pain in ER, but with improvement with treatment with fentanyl. Continue pain control with IV Dilaudid, lidocaine patch added. Monitor on telemetry. Obtain NT proBNP, baseline troponin. Reviewed cardiology note, last visit in February, with dyspnea on exertion echocardiogram had been requested. Continuing Xarelto, low- sodium diet and exercise. Reviewed echocardiogram, noted normal ejection fraction 60%, grade 2 diastolic dysfunction. Moderately elevated filling pressures. Moderately thickened mitral valve, severe annular calcification, no stenosis, trace MVR. Pulmonary artery still pressure mildly increased. Monitor for risk of fluid overload, risk of CHF. Place Avendano catheter with anticipated immobilization. (2) Anticoagulation adequate with anticoagulant therapy: On Xarelto, currently on hold. Plan HTN, monitor blood pressure. Hypertensive in ER, but also in quite bit of pain. Blood pressure noted decreased after pain control. Cardiac diet. DM2, has been down to once daily metformin. Hold while in hospital. Consistent carbohydrate diet. Monitor POC glucose. Low dose sliding scale insulin. CAD, without prior stenting. Reviewed recent echocardiogram. Grade 2 diastolic dysfunction noted, mitral valve disease with minimal stenosis. epilepsy, continue Keppra Sleep apnea on nightly CPAP, requested History of severe infection requiring multiple surgical procedures with partial colectomy, pancreatectomy, splenectomy, cholecystectomy Attestations 2 Medical Necessity Statement*: Admission of over 2 midnights anticipated for assessment management of left hip fracture in a lady with multiple comorbidities as above, on anticoagulation with Xarelto. and High MDM includes amount and/or complexity of data reviewed/ordered [ previous or external records, resulted lab(s)/test(s), ordered lab(s)/test(s) and other healthcare professional discussion] and described risk of complication, morbidity or mortality of management as documented Diagnoses Closed fracture of left hip S72.002A Anticoagulation adequate with anticoagulant therapy Z79.01
[2024-05-16 19:01] LABS: Basophils # 0.1 10^3/uL (0.0-0.1); Basophils % 0.3 %; Eosinophils # 0.1 10^3/uL (0.0-0.8); Eosinophils % 0.4 %; Hematocrit 42.9 % (36-47); Lymphocytes # 2.2 10^3/uL (0.8-4.8); Lymphocytes % 12.2 %; Mean Corpuscular HGB Conc 32.6 g/dL (30-55); Mean Corpuscular Hemoglobin 31.6 pg (27-33); Mean Corpuscular Volume 96.8 fl (85-98); Mean Platelet Volume 10.7 fL (7.4-10.4); Monocytes # 0.6 10^3/uL (0.2-0.9); Monocytes % 3.1 %; Neutrophils # 14.82 10^3/uL (1.8-7.7); Neutrophils % 83.4 %; Nucleated Red Blood Cells % 0 %; Platelet Count 159 10^3/cmm (157-399); Red Blood Count 4.43 10^6/uL (3.85-5.65); Red Cell Distribution Width 13.7 % (12.1-15.1); White Blood Count 17.77 10^3/uL (3.29-11.43)
[2024-05-16 19:16] LABS: Alanine Aminotransferase 19 U/L (0-33); Albumin Level 4.1 g/dL (3.5-5.2); Alkaline Phosphatase 77 U/L (35-105); Blood Urea Nitrogen 21 mg/dL (8-23); Calcium 9.4 mg/dL (8.5-10.5); Carbon Dioxide 25 mmol/L (22-29); Chloride 99 mmol/L (98-107); Creatinine Clr Calc Pharmacy 74.0923; Globulin 3.3 g/dL (1.3-4.6); Glomerular Filtration Rate 62.1 mL/min (90-130); Glucose 141 mg/dL (65-115); Osmolality Calculated 291 mOsm/kg (285-295); Sodium 138 mmol/L (136-145); Total Bilirubin 0.3 mg/dL (0.15-1.2); Total Protein 7.4 g/dL (6.6-8.7)
[2024-05-16 19:18] LABS: Anion Gap 18.6 (5-19); Aspartate Amino Transferase 23 U/L (0-32); Potassium 4.6 mmol/L (3.5-5.1)
[2024-05-16 19:31] LABS: INR 1.37 (0.8-1.2)
--- NOTE | 2024-05-16 20:25 | PM.MISC ---
Miscellaneous Note Purpose of Documentation: Preparation for surgical procedure Note: I have discussed the case with Dr. Mcwilliams, anesthesiologist on-call. We both agree that it is appropriate to proceed with surgical intervention in the morning. This would be approximately 36 hours from the patient's last dose of rivaroxaban. Further evaluation will be performed in the morning. X-rays have been reviewed and arrangements made for surgery.
--- NOTE | 2024-05-16 20:26 | P.CONIM_ITS ---
Providers/Reason For Consult 2 Consulting Physician/Specialty*: Jennifer Caba MD Reason for Consult*: Comminuted intertrochanteric/subtrochanteric hip fracture Requesting Physician: Dr. Katie Salomon Attending Physician: Yanick Luna Primary Care Provider: Peña Basilio MD History of Present Illness History of Present Illness Megan Botello is a 68 year old female who was in her usual state of health when she turned in her kitchen, tripped and fell onto the hard kitchen floor. This resulted in immediate severe pain in the left hip as well as a shortened externally rotated extremity consistent with intertrochanteric/subtrochanteric hip fracture on x-ray. The patient has multiple medical issues including atrial fibrillation for which she is on anticoagulation, hypertension, diabetes, coronary artery disease, epilepsy, sleep apnea for which she uses a CPAP, severe abdominal infections requiring multiple surgical procedures including partial colectomy pancreatectomy splenectomy and cholecystectomy. Review of Systems 2 Const: Denies: fever(s), chills, body aches, change in appetite or malaise Eyes: Denies: photophobia ENMT: Denies: throat pain, enlarged tonsils or dental pain Card: Denies: chest pain, edema, pre-syncope or dyspnea on exertion Resp: Denies: dyspnea, productive cough, change in phlegm color or hemoptysis GI: Denies: abdominal pain, nausea, vomiting, diarrhea, constipation, hematochezia or melena : Denies: flank pain, urinary frequency or hematuria Musc: Reports: extremity pain; Denies: neck pain, back pain, joint swelling or joint redness Skin/Breast: Denies: rash or new lesions Neuro: Denies: headache(s) or confusion Endo: Denies: polyuria or polydipsia All/Imm: Denies: acute wheezing Medications/Allergies Home Medications Medication Instructions Recorded Confirmed Last Taken Type coenzyme Q10 100 mg capsule (Co 100 mg PO QAM 10/21/19 05/16/24 02/18/23 History Q-10) metoprolol tartrate 25 mg tablet See Rx Instructions .Route .COMPLEX 06/21/20 05/16/24 02/18/23 History nitroglycerin 0.3 mg sublingual 0.3 mg sublingual Q5M PRN chest 06/21/20 05/16/24 Unknown Rx tablet pain #30 tabs omega-3 acid ethyl esters 1 gram 2 g PO BID 06/21/20 05/16/24 02/19/23 History capsule cholecalciferol (vitamin D3) 25 25 mcg PO BEDTIME 04/19/21 05/16/24 02/18/23 History mcg (1,000 unit) capsule turmeric root extract 500 mg 500 mg PO BID 05/24/22 05/16/24 02/18/23 History capsule hydrochlorothiazide 25 mg tablet 25 mg PO QAM #90 tabs 09/24/22 05/16/24 02/18/23 Rx losartan 100 mg tablet 100 mg PO QAM #90 tabs 09/24/22 05/16/24 02/18/23 Rx CPAP tubing and mask #1 ea 02/19/23 05/16/24 Unknown Rx acetaminophen 500 mg tablet 500 mg PO Q6H PRN Pain 02/19/23 05/16/24 Unknown History berberine-herbal comb no.18 capsule 1 cap PO DAILY 02/19/23 05/16/24 1 Week Ago History ~02/12/23 isosorbide mononitrate 30 mg 30 mg PO BID 02/19/23 05/16/24 02/18/23 History tablet,extended release 24 hr magnesium oxide 800 mg PO BEDTIME 02/19/23 05/16/24 02/18/23 History pentoxifylline 400 mg See Rx Instructions .Route .COMPLEX 02/19/23 05/16/24 02/18/23 History tablet,extended release vitamin E 670 mg (1,000 unit) 1 cap PO DAILY 02/19/23 05/16/24 02/18/23 History capsule vitamins A,C,H-scmh-yauujp 2,148 1 tab PO BID 02/19/23 05/16/24 02/18/23 History mcg-113 mg-45 mg-17.4 mg tablet (PreserVision AREDS) zinc acetate 50 mg (zinc) capsule 50 mg PO DAILY 02/19/23 05/16/24 02/18/23 History levetiracetam 500 mg tablet 500 mg PO BID #180 tabs 09/02/23 05/16/24 Unknown Rx metformin 500 mg tablet,extended 1,000 mg (2 x 500 mg) PO QAM 90 12/19/23 05/16/24 Unknown Rx release 24 hr days #180 tabs digoxin 250 mcg (0.25 mg) tablet 250 mcg PO BEDTIME #90 tabs 01/27/24 05/16/24 Unknown Rx rivaroxaban 20 mg tablet (Xarelto) 20 mg PO BEDTIME #90 tabs 01/28/24 05/16/24 Unknown Rx germán (Zingiber officinalis) 500 500 mg PO DAILY 05/16/24 05/16/24 Unknown History mg capsule potassium 99 mg tablet 99 mg PO QPM 05/16/24 05/16/24 Unknown History vitamin A 2,400 mcg capsule 2,400 mcg PO DAILY 05/16/24 05/16/24 Unknown History Allergies Allergy/AdvReac Type Severity Reaction Status Date / Time amlodipine Allergy rash Verified 02/17/24 14:42 clindamycin Allergy rash Verified 02/17/24 14:42 Latex, Natural Rubber Allergy Rash/itchin Verified 02/17/24 14:42 g morphine Allergy Rash/itchin Verified 02/17/24 14:42 g diltiazem AdvReac Generalized Verified 02/17/24 14:42 edema hydromorphone AdvReac itching Verified 02/17/24 14:42 PFSH Acute 2 PFSH: Medical History Chronic kidney disease Sleep apnea 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 Seizure spontaneously resolved. On keppra. Surgical History History of partial colectomy 2016 History of partial pancreatectomy 2016 History of cholecystectomy 2016 History of splenectomy 2016 History of cataract surgery History of cardiac catheterization 2020 no significant coronary artery disease, slow flow in all vessels, likely with microvascular dysfunction S/P hysterectomy with oophorectomy 08/2004--exploratory laparotomy, total abdominal hysterectomy, bilateral salpingo-oophorectomy and appendectomy-- Performed by Dr Layton in [place], [place]. Due to enlarged ovaries per patient. Patient reports that no cancer was noted. S/P knee surgery 1999-Performed by Dr Chen at [facility] in [place], [place] S/P hernia repair 2018--large postoperative hernia abdominal surgery in 2016. Repaired with large mesh and extensive reconstruction in [place], [place]. She was told by the surgeons that she has extensive adhesions inside her abdomen. History of exploratory laparotomy 12/2015 exploratory laparotomy via vertical midline supraumbilical incision in [facility]. Extensive surgery including hernia repair, cholecystectomy, resection of pancreas, splenectomy and resection of part of her bowel with re-anastomosis. After surgery she developed a large ventral hernia over surgical incision, corrected in 2018. S/P appendectomy Done at time of open hysterectomy in 2004 S/P shoulder surgery 1981- Performed in [place], [place], right shoulder S/P laparoscopy x 2 Family History Mother Diabetes Heart disease Hypertension Stroke Uterine cancer diagnosed at age 51 or 52 Father Hyperlipidemia Heart disease Hypertension Grandfather Heart disease paternal Hypertension paternal Sister Breast cancer Diagnosed in her late 40s Grandmother Colon cancer Maternal, diagnosed at age 80 Denies family history of Ovarian cancer Thyroid disease Social History Smoking and tobacco/nicotine status: former use of tobacco/nicotine Substance/Drug Use: never Do you think of yourself as: Straight/Heterosexual Dietary Habits: Current diet type/program: regular Caffeine: No Vitals/I&O/Wt Last Vital Signs Temp 98.2 F 05/16/24 16:25 Pulse 73 05/16/24 19:15 Resp 16 05/16/24 19:15 BP 100/69 05/16/24 19:15 Pulse Ox 99 05/16/24 19:15 O2 Del Method Room Air 05/16/24 19:49 O2 Flow Rate 1 05/16/24 19:02 Weight last 48 hrs Weight 243 lb Weight 242 lb 6 oz Physical Exam 2 Const: COMMON NORMALS: no acute distress, average body habitus, patient oriented x3 and alert GENERAL APPEARANCE: cooperative and comfortable O RIENTATION/CONSCIOUSNESS: Yes awake HENMT: COMMON NORMALS: normocephalic and atraumatic HEAD & SCALP: n ormocephalic and atraumatic Eye: GENERAL EYE: appearance normal, both eyes and all related structures Chest: COMMONS NORMALS: normal inspection of the chest Resp: COMMON NORMALS: normal respiratory effort EFFORT & INSPECTION: Yes able to speak in complete sentences and Yes symmetric chest movement Extremity: LEFT LOWER EXTREMITY: Yes hip joint (The leg is externally rotated and shortened) Left hip: Yes ROM (Not evaluated secondary to pain) and Yes neurovascular exam (Intact distal) Neuro: COMMON NORMALS: patient oriented x3 SENSORIUM/ORIENTATION: Yes alert Psych: COMMON NORMALS: mental status grossly normal APPEARANCE: Yes grossly normal ATTITUDE: Yes calm and Yes engaged ATTENTION/CONCENTRATION: Yes attention grossly intact Skin: COMMON NORMALS: no rashes or lesions noted GENERAL SKIN EXAM: no rashes or lesions noted Urinary Catheter Management: Avendano: Cath Placed During This Visit: yes Urinary Catheter Date of Insertion: 05/16/24 Urinary Catheter Time of Insertion: 20:09 Data 05/17/24 05:30 05/17/24 05:30 Xray Ortho: My impression: I have personally reviewed the patient's x-rays of her left hip. She has a comminuted intertrochanteric/subtrochanteric hip fracture with what appears to be a butterfly fragment. This fracture is displaced, shortened, and externally rotated. A&P Assessment and plan (1) Fracture, subtrochanteric, left femur, closed: This 68-year-old woman presented to the emergency room as noted above with an intertrochanteric/subtrochanteric displaced rotated femur fracture. She was admitted under the hospitalist team. X-rays have been reviewed, and discussion has been undertaken with anesthesia. Plans are made for open reduction internal fixation of this fracture approximately 36 hours from the patient's last dose of rivaroxaban. Given the nature of the fracture, it seems prudent to proceed as quickly as possible. The patient is seen with her family in the preoperative holding area. Risk and complications of surgery were discussed consents were signed and questions were answered. Qualifiers: Encounter type: initial encounter Fracture alignment: displaced Qualified Code(s): S72.22XA - Displaced subtrochanteric fracture of left femur, initial encounter for closed fracture (2) Closed intertrochanteric fracture of left hip: Qualifiers: Encounter type: initial encounter Fracture alignment: displaced Qualified Code(s): S72.142A - Displaced intertrochanteric fracture of left femur, initial encounter for closed fracture (3) Anticoagulation adequate with anticoagulant therapy: Coding Level of Care Code Acute Code for Chg Fwd Diagnoses Closed displaced subtrochanteric fracture of left femur, initial encounter S72.22XA Encounter type: initial encounter Fracture alignment: displaced Closed displaced intertrochanteric fracture of left femur, initial encounter S72.142A Encounter type: initial encounter Fracture alignment: displaced Anticoagulation adequate with anticoagulant therapy Z79.01
[2024-05-16] MEDS: lidocaine 5% Patch 1 PATCH TOPICAL (20:34)
[2024-05-16 21:08] LABS: Glucose Point of Care 145 mg/dL (70-110)
[2024-05-16] MEDS: oxyCODONE 5 mg IR Tab/Cap PO (21:20)
[2024-05-16] MEDS: insulin lispro 100 unit/1 mL SUBCUT (21:22)
[2024-05-16 22:50] LABS: Add Urine Microscopic? NO; Bilirubin Urine Negative (Negative); Blood Urine Negative (Negative); Glucose Urine UA Negative (Normal); Ketones Urine Negative (Negative); Leukocyte Esterase Urine Negative (Negative); Nitrate Urine Negative (Negative); Protein Urine Negative (Negative); Specific Gravity, Urine 1.018 (1.005-1.030); Urine Appearance Clear (CLEAR); Urine Color Yellow (Yellow); Urobilinogen Urine 0.2 mg/dL (Negative)
[2024-05-16] MEDS: metoprolol tartrate 25 mg Tablet PO (22:54)
[2024-05-16] MEDS: HYDROcodone-acetaminophen 10-325 mg Tablet 1 TAB PO (22:54)
[2024-05-16 23:48] LABS: Charge for UA Resulting for Rev
[2024-05-17] VITALS (25 sets, daily range): BP systolic 71–168; BP diastolic 37–73; PULSE 62–118; RESP 15–18; TEMP 36.2–37.1; O2SAT 90–97
[2024-05-17] MEDS: ketorolac 30 mg/mL INJ 15 MG IVP (04:07)
[2024-05-17] MEDS: oxyCODONE 5 mg IR Tab/Cap PO (04:07)
[2024-05-17 05:56] LABS: Basophils % 0.3 %; Eosinophils # 0.1 10^3/uL (0.0-0.8); Eosinophils % 0.4 %; Hematocrit 39.6 % (36-47); Lymphocytes # 3.3 10^3/uL (0.8-4.8); Mean Corpuscular HGB Conc 31.6 g/dL (30-55); Mean Corpuscular Hemoglobin 30.6 pg (27-33); Mean Corpuscular Volume 96.8 fl (85-98); Mean Platelet Volume 9.7 fL (7.4-10.4); Monocytes # 0.9 10^3/uL (0.2-0.9); Monocytes % 7.8 %; Neutrophils # 7.51 10^3/uL (1.8-7.7); Neutrophils % 63.1 %; Nucleated Red Blood Cells % 0 %; Platelet Count 268 10^3/cmm (157-399); Red Blood Count 4.09 10^6/uL (3.85-5.65); Red Cell Distribution Width 13.7 % (12.1-15.1); White Blood Count 11.91 10^3/uL (3.29-11.43)
[2024-05-17] MEDS: metoprolol tartrate 50 mg Tablet PO (06:04)
[2024-05-17] MEDS: HYDROcodone-acetaminophen 10-325 mg Tablet 1 TAB PO (06:04)
[2024-05-17 06:17] LABS: Alanine Aminotransferase 17 U/L (0-33); Albumin Level 3.4 g/dL (3.5-5.2); Alkaline Phosphatase 63 U/L (35-105); Aspartate Amino Transferase 18 U/L (0-32); Blood Urea Nitrogen 22 mg/dL (8-23); Calcium 9.2 mg/dL (8.5-10.5); Carbon Dioxide 26 mmol/L (22-29); Chloride 98 mmol/L (98-107); Creatinine Clr Calc Pharmacy 60.7075; Globulin 3.2 g/dL (1.3-4.6); Glomerular Filtration Rate 49.2 mL/min (90-130); Glucose 169 mg/dL (65-115); Osmolality Calculated 289 mOsm/kg (285-295); Sodium 136 mmol/L (136-145); Total Bilirubin 0.4 mg/dL (0.15-1.2); Total Protein 6.6 g/dL (6.6-8.7)
[2024-05-17 06:18] LABS: Anion Gap 16.1 (5-19); Potassium 4.1 mmol/L (3.5-5.1)
[2024-05-17 06:28] LABS: Glucose Point of Care 191 mg/dL (70-110)
[2024-05-17 06:35] LABS: Magnesium 1.8 mg/dL (1.7-2.3)
--- NOTE | 2024-05-17 07:23 | P.ANESASSM_ITS ---
Pre-Anesthetic Assessment Height/Weight: Height 5 ft 6 in Weight 243 lb 8 oz Temp Pulse Resp BP Pulse Ox O2 Del Method O2 Flow Rate 97.2 F L 99 16 115/70 97 Nasal Cannula 2 05/17/24 04:52 05/17/24 05:13 05/17/24 04:52 05/17/24 04:52 05/17/24 04:00 05/17/24 04:00 05/17/24 04:00 Preop Diagnosis: Intertrochanteric fracture of the left hip Operation Date: 05/17/24 08:20 Proposed Procedures p Open Reduction Internal Fixation Left Inter/Subtrochanteric Hip Fracture(Left) - Jennifer Caba MD Was Beta Demi taken within 24 hours: Yes Was Clonidine taken within 24 hours: N/A Last intake: Intake Last Liquid Date 05/16/24 Last Liquid Time 23:59 Last Solid Date 05/16/24 Last Solid Time 22:30 Social No alcohol and No tobacco Exam alert, oriented x 3, clear to auscultation bilaterally and regular rate & rhythm Airway Submandibular: within normal limits Cervical ROM: within normal limits Mallampati: Class II Comments: Comments: Multiple missing/decayed teeth. Denies any loose Anesthetic Plan ASA status: 3 Anesthesia: General Other: No prior issues with anesthesia Patient admitted 05/16/2024 for left intertrochanteric hip fracture Patient ate a sandwich at 10 PM last night History of A-fib on chronic Xarelto, taken 36 hours ago. Will plan on giving FFP KALEN wears CPAP Hypertension on digoxin, hydrochlorothiazide, losartan and metoprolol Seizures, last seizure was 4 years ago. On [facility] Labs reviewed, WBC 11.9, H GB 12.5, creatinine 1.1 EKG showing sinus rhythm with possible left atrial enlargement Echo 03/19/2024 showing EF 60% with moderate elevated filling pressures Risk of anesthesia discussed with the patient, especially risk of bleeding given recent Xarelto intake. Given the urgency of this procedure we will proceed at this time and administer FFP. Plan for general anesthesia Medications/Allergies Home Medications Medication Instructions Recorded Confirmed Last Taken Type coenzyme Q10 100 mg capsule (Co 100 mg PO QAM 10/21/19 05/16/24 02/18/23 History Q-10) metoprolol tartrate 25 mg tablet See Rx Instructions .Route .COMPLEX 06/21/20 05/16/2402/18/23 History nitroglycerin 0.3 mg sublingual 0.3 mg sublingual Q5M PRN chest 06/21/20 05/16/24 Unknown Rx tablet pain #30 tabs omega-3 acid ethyl esters 1 gram 2 g PO BID 06/21/20 05/16/24 02/19/23 History capsule cholecalciferol (vitamin D3) 25 25 mcg PO BEDTIME 04/19/21 05/16/24 02/18/23 History mcg (1,000 unit) capsule turmeric root extract 500 mg 500 mg PO BID 05/24/22 05/16/24 02/18/23 History capsule hydrochlorothiazide 25 mg tablet 25 mg PO QAM #90 tabs 09/24/22 05/16/24 02/18/23 Rx losartan 100 mg tablet 100 mg PO QAM #90 tabs 09/24/22 05/16/24 02/18/23 Rx CPAP tubing and mask #1 ea 02/19/23 05/16/24 Unknown Rx acetaminophen 500 mg tablet 500 mg PO Q6H PRN Pain 02/19/23 05/16/24 Unknown History berberine-herbal comb no.18 capsule 1 cap PO DAILY 02/19/23 05/16/24 1 Week Ago History ~02/12/23 isosorbide mononitrate 30 mg 30 mg PO BID 02/19/23 05/16/24 02/18/23 History tablet,extended release 24 hr magnesium oxide 800 mg PO BEDTIME 02/19/23 05/16/24 02/18/23 History pentoxifylline 400 mg See Rx Instructions .Route .COMPLEX 02/19/23 05/16/24 02/18/23 History tablet,extended release vitamin E 670 mg (1,000 unit) 1 cap PO DAILY 02/19/23 05/16/24 02/18/23 History capsule vitamins A,C,D-fruq-yggiur 2,148 1 tab PO BID 02/19/23 05/16/24 02/18/23 History mcg-113 mg-45 mg-17.4 mg tablet (PreserVision AREDS) zinc acetate 50 mg (zinc) capsule 50 mg PO DAILY 02/19/23 05/16/24 02/18/23 History levetiracetam 500 mg tablet 500 mg PO BID #180 tabs 09/02/23 05/16/24 Unknown Rx metformin 500 mg tablet,extended 1,000 mg (2 x 500 mg) PO QAM 90 12/19/23 05/16/24 Unknown Rx release 24 hr days #180 tabs digoxin 250 mcg (0.25 mg) tablet 250 mcg PO BEDTIME #90 tabs 01/27/24 05/16/24 Unknown Rx rivaroxaban 20 mg tablet (Xarelto) 20 mg PO BEDTIME #90 tabs 01/28/24 05/16/24 Unknown Rx germán (Zingiber officinalis) 500 500 mg PO DAILY 05/16/24 05/16/24 Unknown History mg capsule potassium 99 mg tablet 99 mg PO QPM 05/16/24 05/16/24 Unknown History vitamin A 2,400 mcg capsule 2,400 mcg PO DAILY 05/16/24 05/16/24 Unknown History Allergies Allergy/AdvReac Type Severity Reaction Status Date / Time amlodipine Allergy rash Verified 02/17/24 14:42 clindamycin Allergy rash Verified 02/17/24 14:42 Latex, Natural Rubber Allergy Rash/itchin Verified 02/17/24 14:42 g morphine Allergy Rash/itchin Verified 02/17/24 14:42 g diltiazem AdvReac Generalized Verified 02/17/24 14:42 edema hydromorphone AdvReac itching Verified 02/17/24 14:42 Current Medications Generic Name Dose Route Start Last Admin Trade Name Freq PRN Reason Stop Dose Admin Hydrocodone Bitart/Acetaminophen 1 tab 05/16/24 22:30 05/17/24 06:04 Hydrocodone-Acetaminophen 10-325 Mg Tablet PO 1 tab Q4H PRN Administration MODERATE PAIN Insulin Human Lispro 0 unit 05/16/24 21:00 05/17/24 07:07 Insulin Lispro 100 Unit/1 Ml SUBCUT Not Given WM&BEDTIME [facility] Protocol Lidocaine 1 patch 05/16/24 21:00 05/17/24 07:09 Lidocaine 5% Patch TOPICAL Not Given [id number] [facility] Metoprolol Tartrate 25 mg 05/16/24 22:34 05/16/24 22:54 Metoprolol Tartrate 25 Mg Tablet PO 25 mg QPM PATTI Administration Metoprolol Tartrate 50 mg 05/17/24 06:00 05/17/24 06:04 Metoprolol Tartrate 50 Mg Tablet PO 50 mg QAM PATTI Administration Oxycodone HCl 5 mg 05/16/24 20:20 05/17/24 04:07 Oxycodone 5 Mg Ir Tab/Cap PO 5 mg Q4H PRN Administration MODERATE PAIN PFSH Anesthesia Medical History Chronic kidney disease Sleep apnea 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 Seizure spontaneously resolved. On keppra. Surgical History History of partial colectomy 2015 History of partial pancreatectomy 2016 History of cholecystectomy 2016 History of splenectomy 2015 History of cataract surgery History of cardiac catheterization 2020 no significant coronary artery disease, slow flow in all vessels, likely with microvascular dysfunction S/P hysterectomy with oophorectomy 08/2004--exploratory laparotomy, total abdominal hysterectomy, bilateral salpingo-oophorectomy and appendectomy-- Performed by Dr Layton in [place], [place]. Due to enlarged ovaries per patient. Patient reports that no cancer was noted. S/P knee surgery 1999-Performed by Dr Chen at [facility] in [place], [place] S/P hernia repair 2018--large postoperative hernia abdominal surgery in 2015. Repaired with large mesh and extensive reconstruction in [place], [place]. She was told by the surgeons that she has extensive adhesions inside her abdomen. History of exploratory laparotomy 12/2015 exploratory laparotomy via vertical midline supraumbilical incision in [facility]. Extensive surgery including hernia repair, cholecystectomy, resection of pancreas, splenectomy and resection of part of her bowel with re-anastomosis. After surgery she developed a large ventral hernia over surgical incision, corrected in 2018. S/P appendectomy Done at time of open hysterectomy in 2004 S/P shoulder surgery 1981- Performed in [place], [place], right shoulder S/P laparoscopy x 2 Family History Mother Diabetes Heart disease Hypertension Stroke Uterine cancer diagnosed at age 51 or 52 Father Hyperlipidemia Heart disease Hypertension Grandfather Heart disease paternal Hypertension paternal Sister Breast cancer Diagnosed in her late 40s Grandmother Colon cancer Maternal, diagnosed at age 80 Denies family history of Ovarian cancer Thyroid disease Social History Smoking and tobacco/nicotine status: former use of tobacco/nicotine Substance/Drug Use: never Do you think of yourself as: Straight/Heterosexual Data Anesthesia 05/17/24 05:30 05/17/24 05:30 Short CBC 05/16/24 05/17/24 Range/Units 18:34 05:30 WBC 17.77 H 11.91 H (3.29-11.43) 10^3/uL Hgb 14.00 12.50 (11.27-16.99) g/dL Hct 42.9 39.6 (36-47) % MCV 96.8 96.8 (85-98) fl Plt Count 159 268 D (157-399) 10^3/cmm Neut % (Auto) 83.4 63.1 % Neut # (Auto) 14.82 H 7.51 (1.8-7.7) 10^3/uL BMP 05/16/24 05/17/24 18:34 05:30 Sodium 138 136 Potassium 4.6 4.1 Chloride 99 98 Carbon Dioxide 25 26 BUN 21 22 Creatinine 0.9 1.1 H Glucose 141 H 169 H Calcium 9.4 9.2 Liver Function 05/16/24 05/17/24 Range/Units 18:34 05:30 Total Bilirubin 0.3 0.4 (0.15-1.2) mg/dL AST 23 18 (0-32) U/L ALT 19 17 (0-33) U/L Alkaline Phosphatase 77 63 (35-105) U/L Albumin 4.1 3.4 L (3.5-5.2) g/dL Urine 05/16/24 Range/Units 22:26 Urine Color Yellow (Yellow) Urine Appearance Clear (CLEAR) Urine pH 5.0 (5-7) Ur Specific [place] 1.018 (1.005-1.030) Urine Protein Negative (Negative) Urine Glucose (UA) Negative (Normal) Urine Ketones Negative (Negative) Urine Nitrate Negative (Negative) Urine Bilirubin Negative (Negative) Ur Leukocyte Esterase Negative (Negative) Blood Bank 05/17/24 05:30 Blood Type O Positive Rho(D) Type Rh positive Antibody Screen Cancelled Coags 05/16/24 18:34 PT 17.30 H INR 1.37 H Cardiac Studies: 2 Echocardiogram 03/19/24
[2024-05-17] MEDS: acetaminophen 1,000 MG/100 ML PIGGYBACK 400 MG IV (07:44)
[2024-05-17] MEDS: CELEcoxib 200 mg Capsule 400 MG PO (08:00)
--- NOTE | 2024-05-17 08:00 | XR_ITS ---
WS: [id number] Exam: XR femur LT min 2V* [id number] Date/Time of Exam: 05/17/2024 8:00 AM Reason For Exam: LT LONG TFN; OR PICS Comparison 05/16/2024. Intraoperative C-arm images in the AP and lateral views are submitted. Intertrochanteric fracture is stabilized with a long intramedullary xiomara and femoral neck screw. Alignment appears satisfactory for healing.
[2024-05-17] MEDS: ceFAZolin 2,000 mg SDV 2000 MG IVP ×3 (08:18→23:25)
[2024-05-17 09:05] LABS: Troponin T (5th) Once 16 ng/L (0-10)
[2024-05-17] MEDS: ceFAZolin 1,000 mg SDV 1000 MG IRRIGATION (10:02)
[2024-05-17 13:05] LABS: Hematocrit 34.3 % (36-47)
--- NOTE | 2024-05-17 13:08 | XRR_ITS ---
PROCEDURE INFORMATION: Exam: XR Left Femur Exam date and time: 05/17/2024 1:11 PM Age: 68 years old Clinical indication: Screening exam; Prior surgery; Surgery date: Post-operative (0-2 days); Patient HX: Post op lt femur orif TECHNIQUE: Imaging protocol: Radiologic exam of the left femur. Views: 2 views. COMPARISON: CR (PELVIS, ) 05/16/2024 5:11 PM FINDINGS: Bones/joints: Status post left transfemoral nailing with near anatomical alignment. No new acute fractures Soft tissues: Expected postsurgical changes XR/XR femur LT min 2V* [id number] IMPRESSION: 1. Status post left transfemoral nailing with near anatomical alignment. 2. No new acute fractures
--- NOTE | 2024-05-17 13:18 | P.OP_ITS ---
Operative Report Date of procedure: May 17, 2024 Pre-op diagnosis: Left subtrochanteric fracture with intertrochanteric extension Post-op diagnosis: Left subtrochanteric with slight intertrochanteric extension and comminuted femoral shaft fracture Post-op findings: Significant comminution in the proximal third of the femoral shaft as well as the subtrochanteric portion of the fracture with slight extension into the intertrochanteric area Procedure done: Open reduction internal fixation left subtrochanteric fracture with inter trochanteric extension and open reduction internal fixation left femoral shaft fracture including intramedullary xiomara and cerclage wire Implants: [employer] gamma nail system with a long gamma 3 nail left size 13 mm x 380 mm x 125 degree, proximal lag screw size 10.5 mm x 105 mm, distal locking screw size 5 mm x 50 mm and fixation of the femoral shaft fracture with cerclage wire, Dall-Miles cable, size 2.0. Specimens removed/disposition: None Pathology: None Surgeon: Jennifer Caba MD Document Management Specialist: [facility] operating room technicians Anesthesia: General (Intubated, ASA 3) Estimated blood loss (mL): 1,100 IV fluids (mL): 1,900 (Crystalloid +2 bags of FFP for a total of 470 additional mL and albumin in the PACU.) Urine output (mL): 450 Complications: None Findings: Significant extension into the femoral shaft with large comminuted pieces with severe displacement. Condition: stable Disposition: PACU (Then return to floor for postoperative rehabilitation and pain management) Brief History: This 68-year-old woman presented through the emergency room after a fall at home when she tripped and fell onto the hard kitchen floor. She had immediate pain in the left lower extremity, and she noted feeling 3 pops during her fall. While in the emergency room, it was difficult to obtain appropriate imaging studies. It appeared that the fracture was primarily subtrochanteric with intertrochanteric extension, but after evaluation on the fluoroscopy table, there was significant comminution and extension into the full proximal third of the femoral shaft. This was not able to be reduced through traction requiring a large separate incision. Procedure: Patient is brought to the operating theater. After undergoing adequate general anesthesia with intubation, ASA 3, the patient was transferred to the fracture table, positioned on the table and fluoroscopic guidance obtained throughout the surgical procedure. There was significant difficulty positioning the patient on the table secondary to the patient's size and inner thigh pannus formation. Patient was prepped and draped after attempt was made at reduction using a supplemental crutch as well as significant traction. We were unable to get the fracture into an acceptable position as there were multiple fragments which would not align particularly in the lateral imaging study. For this reason, the decision was made to proceed with open reduction internal fixation of the subtrochanteric fracture utilizing the gamma trochanteric nail and also proceeding with open reduction at the fracture site. The patient had significant soft tissues and the fracture was marked using fluoroscopy prior to prepping and draping. Prior to the commencement of the surgical procedure, a surgical pause was performed. At the time of the surgical pause, we confirmed the site and side of surgery as well as preoperative surgical markings and appropriate and timely administration of IV antibiotics, Ancef 2 g. Availability of equipment was also confirmed. This included cerclage wires as well as the long gamma trochanteric nail and appropriate reduction clamps for the open reduction internal fixation. Fluoroscopy was used to confirm the fracture was appropriately reduced in both AP and lateral planes. Attention was initially addressed to the femoral shaft fracture. Attempt at manipulation had been accomplished with the use of traction and rotation, but the fracture fragments were so widely and impacted into the muscle, it was felt that we could not reduce this fracture without opening it. The extents of the fracture were marked, and an incision was made over the patient's lateral femur. Dissection continued through skin and soft tissues using a scalpel hemostasis was obtained using electrocautery. There was substantial soft tissue envelope causing significant difficulty in reduction and an exposure. Both surgical technicians from the operating room were required for retraction of the soft tissues. The bone was isolated with some difficulty. We were then able to place Jennifer clamps over the fracture site. With these, we were able to reduce the fracture, but it required to double clamps. These clamps were left in place during the remainder of the procedure as we did not want to place cerclage wire until the xiomara had been passed. An incision was then made slightly above the greater trochanter to allow access to the greater trochanter. An awl was used to enter the greater trochanter and a guidewire was subsequently placed. Once the guidewire was confirmed to be in appropriate position in AP and lateral planes, reaming was accomplished over this to allow for the proximal diameter of the nail. Guidewire was then removed and a long guidewire was placed through the proximal femur, across the fracture site, and down to the knee. This was visualized fluoroscopically during this process. After the guidewire was noted to be in appropriate position, reaming was begun. We reamed initially for a size 11 nail which was to a size 13, but we had not achieved chatter until we had minimal chatter at size 13. Therefore, the decision was made to go to a size 13 now requiring reaming to a size 15. This reaming was accomplished without difficulty. The wire was measured prior to reaming, and the appropriate length nail was 380 mm. Therefore, after reaming, the chosen nail was a 13 mm x 380 mm x 125 degree gamma 3 long left trochanteric nail. This nail was placed into appropriate position with positioning being confirmed in AP and lateral planes on the x-ray. It passed with some difficulty. Guidewire was then passed through the jigging system into the femoral head. We wanted to be center or slightly inferior and posterior to center. With a nail in place, in order to place a guidewire for the proximal lag screw, we had to remove one of the turkey claw clamps, but the fracture was noted to be stable following intramedullary xiomara placement. With manipulation of the second turkey claw, a guidewire was placed into appropriate position. Once the guidewire was in appropriate position and this position was confirmed by x- ray. This was then measured and we chose a 10.5 mm x 105 mm lag screw. We reamed to allow for the lag screw to be placed. The 105 mm lag screw was then passed into the femoral head through the trochanteric nail. This was passed uneventfully and again position was confirmed in AP and lateral planes. The set screw was then placed in position, and tightened completely. Once the screw was in position, we confirmed appropriate placement of the components, and we removed the jigging system. Perfect ho-chunk technique was used to determine appropriate placement for the distal screw. This was placed in position without difficulty. Screw length was determined by depth gauge measurement and confirmed with fluoroscopy. The appropriate length screw was then obtained and placed in position without difficulty. Attention was then directed to closure. The hip was copiously irrigated with normal saline with antibiotics. Following this it was dried and closed. Tensor fascia myekl was closed proximally with 0 Vicryl in an interrupted fashion. Subcutaneous tissues were closed with combination of 0 Vicryl and 2-0 Monocryl, and the skin was closed with skin edmundo. This was then covered with Dermabond Prineo and OpSite. The patient was removed from the fracture table and returned to recovery in satisfactory condition. The patient will be discharged to the floor for postoperative rehabilitation and pain management. There were no specimens obtained. Related Problem List Diagnoses (1) Left femoral shaft fracture: (2) Fracture, subtrochanteric, left femur, closed:
--- NOTE | 2024-05-17 13:30 | ANE.PACU2 ---
Inpatient post-anesthesia follow up: Airway intact: Yes Vital signs: Temperature 98.2 F Pulse Rate 68 Respiratory Rate 15 Blood Pressure 98/65 Pulse Oximetry 96 Oxygen Delivery Me thod Nasal Cannula Oxygen Flow Rate 2 Fraction of Inspir ed Oxygen Hydration adequate: Yes Nausea and vomiting: No Pain level: 1 Mental status: Baseline
[2024-05-17] MEDS: VANCOMYCIN ADD-Vantage 1,000 MG in 0.9% NaCl ADD-Vantage 250 ML 250 MG IV (13:58)
[2024-05-17 16:46] LABS: Glucose Point of Care 260 mg/dL (70-110)
[2024-05-17] MEDS: metoprolol tartrate 25 mg Tablet PO (17:31)
[2024-05-17] MEDS: insulin lispro 100 unit/1 mL SUBCUT ×2 (17:31→21:30)
--- NOTE | 2024-05-17 17:36 | P.PN_ITS ---
Vitals/I&O/Wt Last Vital Signs Temp 97.4 F L 05/17/24 15:40 Pulse 71 05/17/24 16:10 Resp 17 05/17/24 16:10 BP 103/68 05/17/24 16:10 Pulse Ox 95 05/17/24 16:10 O2 Del Method Nasal Cannula 05/17/24 16:10 O2 Flow Rate 8 05/17/24 13:20 05/17/24 05/17/24 05/17/24 06:59 14:59 22:59 Intake Total 1470 / 1470 250 / 1720 Output Total 400 / 400 1999 / 1999 Balance -400 / -400 -530 / -530 250 / -280 Weight last 48 hrs Weight 110.45 kg Weight 110.223 kg Weight 109.939 kg Physical Exam 2 Const: COMMON NORMALS: patient oriented x3 and alert GENERAL APPEARANCE: c ooperative ORIENTATION/CONSCIOUSNESS: Yes awake HENMT: COMMON NORMALS: oropharynx normal Neck/C-Spine: COMMON NORMALS: no JVD Resp: COMMON NORMALS: normal respiratory effort and clear to auscultation bilaterally AUSCULTATION: clear to auscultation bilaterally Cardio: COMMON NORMALS: no JVD, regular rhythm, S1 normal heart sound present, S2 normal heart sound present and No murmurs present (Cardio) RHYTHM: regular rhythm HEART SOUNDS: S1 normal heart sound present and S2 normal heart sound present GI: COMMON NORMALS: Normal to inspection, nondistended, normoactive bowel sounds present, Soft to palpation and non-tender PALPATION: Yes Soft to palpation Extremity: COMMON NORMALS: no joint enlargement and no pedal edema Neuro: COMMON NORMALS: patient oriented x3 and moves all extremities S ENSORIUM/ORIENTATION: Yes alert Skin: COMMON NORMALS: no rashes or lesions noted GENERAL SKIN EXAM: no rashes or lesions noted Urinary Catheter Management: Avendano: Cath Placed During This Visit: yes Reason for Continuing Indwelling Catheter: Perioperative Use in Selected Surgeries Urinary Catheter Date of Insertion: 05/16/24 Urinary Catheter Time of Insertion: 20:09 Data 05/17/24 12:55 05/17/24 05:30 A&P Assessment and plan (1) Closed fracture of left hip: Status post ORIF left hip. So far is doing well after surgery, but is hungry, and request for advancement of diet and wants to make sure that it is consistent carbohydrate. Noted acute anemia, hemoglobin down to 10.6. Reassess blood counts with risk of anemia after fracture with anticoagulation. Reviewed vitals, hemoglobin, platelets. Reviewed INR. UA. Resume anticoagulation once deemed safe per orthopedic surgery. Pain control, continue oxycodone as needed for pain. Discontinue duplicate oxycodone, discontinue hydrocodone. Incentive spirometer PT assessment. Discharge planning. DC Avendano catheter with mobilization. (2) Anticoagulation adequate with anticoagulant therapy: On Xarelto, currently on hold. Resume once deemed safe by orthopedic surgery. Plan HTN, monitor blood pressure. Hypertensive in ER, but also in quite bit of pain. Blood pressure noted decreased after pain control. Currently blood pressure soft after surgery. Antihypertensives held for now. Reassess blood pressures. DM2, has been down to once daily metformin. Hold while in hospital. Consistent carbohydrate diet. Monitor POC glucose. Low dose sliding scale insulin. CAD, without prior stenting. Reviewed recent echocardiogram. Grade 2 diastolic dysfunction noted, mitral valve disease with minimal stenosis. epilepsy, continue Keppra Sleep apnea on nightly CPAP, requested History of severe infection requiring multiple surgical procedures with partial colectomy, pancreatectomy, splenectomy, cholecystectomy Attestations 2 Medical Necessity Statement*: Continue admission for postoperative management after left hip fracture sustained while on anticoagulation, and ORIF repair, with acute anemia, and a lady with additional comorbidities as above. Post discharge planning arrangements. Diagnoses Closed fracture of left hip S72.002A Anticoagulation adequate with anticoagulant therapy Z79.01
[2024-05-17] MEDS: acetaminophen 500 mg Tablet 1000 MG PO (20:31)
[2024-05-17 21:09] LABS: Glucose Point of Care 255 mg/dL (70-110)
[2024-05-18] VITALS (9 sets, daily range): BP systolic 98–146; BP diastolic 62–87; PULSE 62–87; RESP 15–18; TEMP 36.5–37; O2SAT 94–96
--- NOTE | 2024-05-18 06:07 | ECG_ITS ---
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1955 Requested By: Jennifer Caba Order Number: [id number] Reading MD: CYNTHIA GORE Measurements Intervals [place] Rate: 78 P: -53 WV: 164 QRS: 8 QRSD: 92 T: 32 QT: 373 QTc: 426 Interpretive Statements ECTOPIC ATRIAL RHYTHM NONSPECIFIC T-WAVE ABNORMALITY ABNORMAL RHYTHM ECG Compared to ECG 05/16/2024 18:39:39 Ectopic atrial rhythm now present Sinus rhythm no longer present Possible ischemia no longer present T-wave abnormality still present Electronically Signed On 05-18-2024 16:07:30 FACTORY WORKER by CYNTHIA GORE [email or web address]
[2024-05-18] MEDS: acetaminophen 500 mg Tablet 1000 MG PO ×3 (06:15→20:48)
[2024-05-18] MEDS: metoprolol tartrate 50 mg Tablet PO (06:15)
[2024-05-18 06:32] LABS: Glucose Point of Care 184 mg/dL (70-110)
[2024-05-18] MEDS: rivaroxaban 10 mg Tablet PO (09:01)
[2024-05-18] MEDS: insulin lispro 100 unit/1 mL SUBCUT ×4 (09:02→20:49)
[2024-05-18] MEDS: ceFAZolin 2,000 mg SDV 2000 MG IVP (09:16)
--- NOTE | 2024-05-18 09:57 | PC.CHAP ---
Pastoral Care Encounter/Spiritual Assessment Type of Contact [] Declined triage register nurse visit [] Patient/Family/Request visit [] Outpatient visit [] Follow-up visit [] Physician referral [] Code/Alert [x] Routine visit [] Staff referral [] Actively dying [] Patient sleeping [] Family support [] [] Out of room [] Palliative care [] [x] Receiving care in room [] Pre-surgical visit [] Trauma [] Long length of stay [] ICU visit [] Other: Relational/Emotional Strength [] Patient feels connected with others/family/visitors/staff [] Distress [] Loneliness/isolation [] Abandonment Spirituality of Patient [] Person of Ling [] Attends Alevism of their Ling [] Believes in Prayer [] Reads Bible or Pentecostalism materials [] There are Spiritual issues to be addressed Mobile Mechanic Interventions [x] Prayer [] Active listening [] Non-anxious presence [] Spiritual/emotional support [] Crisis/trauma care [] Spiritual counseling [] Bereavement support [] Provided bereavement packet [] Provided Bible/devotional materials [] Provided toy/stuffed animal, coloring book to patient or family member [] Provided Communion [] Anointing/[place] [] Salvation [] Completed spiritual assessment [] Other: Impact on Illness or Injury [] Angry [] Fearful [] Anxious [] Often cries [] Exhaustion [] Unable to work [] Unable to attend roman catholic [] Unable to walk/stand [] Unable to read [] Unable to drive [] Unable to eat/drink [] Unable to sleep [] Unable to be with family [] Patient intubated [] Other: Summary Time spent with patient
--- NOTE | 2024-05-18 10:05 | PC.SOCIAL ---
IMM Update Pg. 2 of IMM updated. Initialed, dated, and timed. Copy provided at bedside.
[2024-05-18 11:30] LABS: Basophils % 0.2 %; Eosinophils % 0.1 %; Hematocrit 25.3 % (36-47); Lymphocytes # 2.2 10^3/uL (0.8-4.8); Mean Corpuscular HGB Conc 31.6 g/dL (30-55); Mean Corpuscular Hemoglobin 30.9 pg (27-33); Mean Corpuscular Volume 97.7 fl (85-98); Mean Platelet Volume 10.2 fL (7.4-10.4); Monocytes % 7.5 %; Neutrophils # 10.41 10^3/uL (1.8-7.7); Neutrophils % 75.5 %; Nucleated Red Blood Cells % 0 %; Platelet Count 177 10^3/cmm (157-399); Red Blood Count 2.59 10^6/uL (3.85-5.65); Red Cell Distribution Width 14.1 % (12.1-15.1); White Blood Count 13.78 10^3/uL (3.29-11.43)
[2024-05-18 11:49] LABS: Anion Gap 16.9 (5-19); Blood Urea Nitrogen 30 mg/dL (8-23); Calcium 8.4 mg/dL (8.5-10.5); Carbon Dioxide 25 mmol/L (22-29); Chloride 102 mmol/L (98-107); Creatinine Clr Calc Pharmacy 52.2688; Glomerular Filtration Rate 40.6 mL/min (90-130); Glucose 184 mg/dL (65-115); Osmolality Calculated 301 mOsm/kg (285-295); Potassium 3.9 mmol/L (3.5-5.1); Sodium 140 mmol/L (136-145)
[2024-05-18 12:39] LABS: Glucose Point of Care 162 mg/dL (70-110)
[2024-05-18 13:48] LABS: Iron 26 ug/dL (37-145); Percent Saturation 13.5 % (20-50); Total Iron Binding Capacity 192 mcg/dl; Unsaturated Iron Binding 166 ug/dL (112-347); Vitamin B12 355 pg/mL (232-1245)
--- NOTE | 2024-05-18 16:18 | P.PN_ITS ---
Subjective 2 Subjective: Hospital events, labs appreciated. Seen with multiple family numbers at bedside. Patient sitting up in chair. States pain is well-controlled nonetheless she is moving. Denies any nausea, vomiting. Vitals/I&O/Wt Last Vital Signs Temp 98.2 F 05/18/24 15:42 Pulse 68 05/18/24 15:42 Resp 15 05/18/24 15:42 BP 98/65 05/18/24 15:42 Pulse Ox 96 05/18/24 15:42 O2 Del Method Nasal Cannula 05/18/24 15:42 O2 Flow Rate 2 05/18/24 15:42 05/18/24 05/18/24 05/18/24 06:59 14:59 22:59 Intake Total 240 / 2920 472 / 472 Output Total 200 / 2825 300 / 300 Balance 40 / 95 172 / 172 Weight last 48 hrs Weight 113.716 kg Weight 110.45 kg Weight 110.223 kg Weight 109.939 kg Physical Exam 2 Narrative: Accompanied by family including her daughter. Const: COMMON NORMALS: patient oriented x3 and alert GENERAL APPEARANCE: c ooperative ORIENTATION/CONSCIOUSNESS: Yes awake HENMT: COMMON NORMALS: oropharynx normal Neck/C-Spine: COMMON NORMALS: no JVD Resp: COMMON NORMALS: normal respiratory effort and clear to auscultation bilaterally AUSCULTATION: clear to auscultation bilaterally Cardio: COMMON NORMALS: no JVD, regular rhythm, S1 normal heart sound present, S2 normal heart sound present and No murmurs present (Cardio) RHYTHM: regular rhythm HEART SOUNDS: S1 normal heart sound present and S2 normal heart sound present GI: COMMON NORMALS: Normal to inspection, nondistended, normoactive bowel sounds present, Soft to palpation and non-tender PALPATION: Yes Soft to palpation Extremity: COMMON NORMALS: no joint enlargement and no pedal edema OTHER: Everted, shortened LLE. Neuro: COMMON NORMALS: patient oriented x3 and moves all extremities S ENSORIUM/ORIENTATION: Yes alert Skin: COMMON NORMALS: no rashes or lesions noted GENERAL SKIN EXAM: no rashes or lesions noted Urinary Catheter Management: Avendano: Cath Placed During This Visit: yes Reason for Continuing Indwelling Catheter: Perioperative Use in Selected Surgeries Urinary Catheter Date of Insertion: 05/16/24 Urinary Catheter Time of Insertion: 20:09 Data 05/18/24 11:15 05/18/24 11:15 A&P Assessment and plan (1) Fracture, subtrochanteric, left femur, closed: Qualifiers: Encounter type: initial encounter Fracture alignment: displaced Qualified Code(s): S72.22XA - Displaced subtrochanteric fracture of left femur, initial encounter for closed fracture (2) S/P ORIF (open reduction internal fixation) fracture: (3) Postoperative anemia: (4) Anticoagulation adequate with anticoagulant therapy: On Xarelto, currently on hold. Resume once deemed safe by orthopedic surgery. (5) Essential hypertension: (6) Atrial fibrillation: Qualifiers: Atrial fibrillation type: paroxysmal Qualified Code(s): I48.0 - Paroxysmal atrial fibrillation (7) Diabetes mellitus: (8) Encounter for postoperative care: (9) Bradycardia: Plan HTN, monitor blood pressure. Hypertensive in ER, but also in quite bit of pain. Blood pressure noted decreased after pain control. Currently blood pressure soft after surgery. Antihypertensives held for now. Reassess blood pressures. DM2, has been down to once daily metformin. Hold while in hospital. Consistent carbohydrate diet. Monitor POC glucose. Low dose sliding scale insulin. CAD, without prior stenting. Reviewed recent echocardiogram. Grade 2 diastolic dysfunction noted, mitral valve disease with minimal stenosis. epilepsy, continue Keppra Sleep apnea on nightly CPAP, requested History of severe infection requiring multiple surgical procedures with partial colectomy, pancreatectomy, splenectomy, cholecystectomy Plan for today: Postoperative day 1. Hemoglobin down to 8 today. Continue to monitor hemoglobin. Check iron panel. Start on IV iron supplementation. Repeat hemoglobin in evening. Monitor hemodynamics. If blood pressure soft we will plan for blood transfusion. Otherwise target hemoglobin more than 7. Patient complaining of bradycardia as an outpatient on and off with heart rate down to 40s when she wakes up in morning. Decreased home dose of metoprolol 25 mg twice daily. Continue with digoxin. Check digoxin level. Goal blood pressure less than 140/90 mmhg. Continue metoprolol as above. Holding off on all other antihypertensive including losartan, Imdur, hydrochlorothiazide. Mild CECILIA. Start on gentle IV hydration with normal saline 75 cc/h. Hold off on Xarelto for now. Restart home dose of Keppra. Discharge plan: Appreciate PT/OT evaluation. Recommend home health referral for SNF. Orthopedics team recommending SNF. Case management alerted. Attestations 2 Medical Necessity Statement*: Requires further hospitalization for postoperative care post-ORIF, postoperative anemia, bradycardia while safe discharge planning is sought. Diagnoses Closed displaced subtrochanteric fracture of left femur, initial encounter S72.22XA Encounter type: initial encounter Fracture alignment: displaced S/P ORIF (open reduction internal fixation) fracture Z98.890; Z87.81 Postoperative anemia D64.9 Anticoagulation adequate with anticoagulant therapy Z79.01 Essential hypertension I10 Paroxysmal atrial fibrillation I48.0 Atrial fibrillation type: paroxysmal Diabetes mellitus E11.9 Encounter for postoperative care Z48.89 Bradycardia R00.1
[2024-05-18] MEDS: iron sucrose 200 MG in sodium chloride 0.9% (100 ml) 100 ML 220 MG IV (16:22)
[2024-05-18] MEDS: levETIRAcetam 500 mg Tablet PO (16:23)
[2024-05-18] MEDS: sodium chloride 0.9% 1,000 ML 75 ML IV (16:25)
--- NOTE | 2024-05-18 17:12 | PM.CONSULT ---
Providers/Reason For Consult Attending Physician: Sree Mackenzie MD Primary Care Provider: Peña Basilio MD History of Present Illness History of Present Illness Megan Botello is a 68 year old female Medications/Allergies Home Medications Medication Instructions Recorded Confirmed Last Taken Type coenzyme Q10 100 mg capsule (Co 100 mg PO QAM 10/21/19 05/16/24 02/18/23 History Q-10) metoprolol tartrate 25 mg tablet See Rx Instructions .Route .COMPLEX 06/21/20 05/16/24 02/18/23 History nitroglycerin 0.3 mg sublingual 0.3 mg sublingual Q5M PRN chest 06/21/20 05/16/24 Unknown Rx tablet pain #30 tabs omega-3 acid ethyl esters 1 gram 2 g PO BID 06/21/20 05/16/24 02/19/23 History capsule cholecalciferol (vitamin D3) 25 25 mcg PO BEDTIME 04/19/21 05/16/24 02/18/23 History mcg (1,000 unit) capsule turmeric root extract 500 mg 500 mg PO BID 05/24/22 05/16/24 02/18/23 History capsule hydrochlorothiazide 25 mg tablet 25 mg PO QAM #90 tabs 09/24/22 05/16/24 02/18/23 Rx losartan 100 mg tablet 100 mg PO QAM #90 tabs 09/24/22 05/16/24 02/18/23 Rx CPAP tubing and mask #1 ea 02/19/23 05/16/24 Unknown Rx acetaminophen 500 mg tablet 500 mg PO Q6H PRN Pain 02/19/23 05/16/24 Unknown History berberine-herbal comb no.18 capsule 1 cap PO DAILY 02/19/23 05/16/24 1 Week Ago History ~02/12/23 isosorbide mononitrate 30 mg 30 mg PO BID 02/19/23 05/16/24 02/18/23 History tablet,extended release 24 hr magnesium oxide 800 mg PO BEDTIME 02/19/23 05/16/24 02/18/23 History pentoxifylline 400 mg See Rx Instructions .Route .COMPLEX 02/19/23 05/16/24 02/18/23 History tablet,extended release vitamin E 670 mg (1,000 unit) 1 cap PO DAILY 0905/16/24 02/18/23 History capsule vitamins A,C,W-unij-kcrjkp 2,148 1 tab PO BID 02/19/23 05/16/24 02/18/23 History mcg-113 mg-45 mg-17.4 mg tablet (PreserVision AREDS) zinc acetate 50 mg (zinc) capsule 50 mg PO DAILY 02/19/23 05/16/24 02/18/23 History levetiracetam 500 mg tablet 500 mg PO BID #180 tabs 09/02/23 05/16/24 Unknown Rx metformin 500 mg tablet,extended 1,000 mg (2 x 500 mg) PO QAM 90 12/19/23 05/16/24 Unknown Rx release 24 hr days #180 tabs digoxin 250 mcg (0.25 mg) tablet 250 mcg PO BEDTIME #90 tabs 01/27/24 05/16/24 Unknown Rx rivaroxaban 20 mg tablet (Xarelto) 20 mg PO BEDTIME #90 tabs 01/28/24 05/16/24 Unknown Rx germán (Zingiber officinalis) 500 500 mg PO DAILY 05/16/24 05/16/24 Unknown History mg capsule potassium 99 mg tablet 99 mg PO QPM 05/16/24 05/16/24 Unknown History vitamin A 2,400 mcg capsule 2,400 mcg PO DAILY 05/16/24 05/16/24 Unknown History Allergies Allergy/AdvReac Type Severity Reaction Status Date / Time amlodipine Allergy rash Verified 02/17/24 14:42 clindamycin Allergy rash Verified 02/17/24 14:42 Latex, Natural Rubber Allergy Rash/itchin Verified 02/17/24 14:42 g morphine Allergy Rash/itchin Verified 02/17/24 14:42 g diltiazem AdvReac Generalized Verified 02/17/24 14:42 edema hydromorphone AdvReac itching Verified 02/17/24 14:42 Current Medications Generic Name Dose Route Start Last Admin Trade Name Freq PRN Reason Stop Dose Admin Acetaminophen 1,000 mg 05/17/24 13:15 05/18/24 12:46 Acetaminophen 500 Mg Tablet PO 1,000 mg Q8H PATTI Administration Iron Sucrose 200 mg/ Sodium 110 mls @ 220 mls/hr 05/18/24 13:00 05/18/24 16:22 Chloride IV 05/22/24 13:29 220 mls/hr Q24H PATTI Administration Sodium Chloride 1,000 mls @ 75 mls/hr 05/18/24 12:45 05/18/24 16:42 Sodium Chloride 0.9% IV 0 mls/hr .[id number] PATTI Infusion Insulin Human Lispro 0 unit 05/16/24 21:00 05/18/24 12:46 Insulin Lispro 100 Unit/1 Ml SUBCUT 2 unit WM&BEDTIME PATTI Administration Protocol Levetiracetam 500 mg 05/18/24 12:40 05/18/24 16:23 Levetiracetam 500 Mg Tablet PO 500 mg BID PATTI Administration Lidocaine 1 patch 05/16/24 21:00 05/18/24 09:14 Lidocaine 5% Patch TOPICAL Not Given [id number] [facility] Rivaroxaban 10 mg 05/18/24 09:00 05/18/24 09:01 Rivaroxaban 10 Mg Tablet PO 10 mg DAILY PATTI Administration PFSH Acute PFSH: Medical History (Updated 05/18/24 @ 16:29 by Sree Mackenzie MD) Chronic kidney disease Sleep apnea 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 Seizure spontaneously resolved. On keppra. Surgical History (Updated 05/18/24 @ 16:21 by Sree Mackenzie MD) S/P ORIF (open reduction internal fixation) fracture History of partial colectomy 2016 History of partial pancreatectomy 2016 History of cholecystectomy 2016 History of splenectomy 2016 History of cataract surgery History of cardiac catheterization 2020 no significant coronary artery disease, slow flow in all vessels, likely with microvascular dysfunction S/P hysterectomy with oophorectomy 08/2004--exploratory laparotomy, total abdominal hysterectomy, bilateral salpingo-oophorectomy and appendectomy-- Performed by Dr Layton in [place], [place]. Due to enlarged ovaries per patient. Patient reports that no cancer was noted. S/P knee surgery 1999-Performed by Dr Chen at [facility] [place] in [place], [place] S/P hernia repair 2017--large postoperative hernia abdominal surgery in 2015. Repaired with large mesh and extensive reconstruction in [place], [place]. She was told by the surgeons that she has extensive adhesions inside her abdomen. History of exploratory laparotomy 12/2015 exploratory laparotomy via vertical midline supraumbilical incision in [facility]. Extensive surgery including hernia repair, cholecystectomy, resection of pancreas, splenectomy and resection of part of her bowel with re-anastomosis. After surgery she developed a large ventral hernia over surgical incision, corrected in 2018. S/P appendectomy Done at time of open hysterectomy in 2004 S/P shoulder surgery 1982- Performed in [place], [place], right shoulder S/P laparoscopy x 2 Family History Mother Diabetes Heart disease Hypertension Stroke Uterine cancer diagnosed at age 51 or 52 Father Hyperlipidemia Heart disease Hypertension Grandfather Heart disease paternal Hypertension paternal Sister Breast cancer Diagnosed in her late 40s Grandmother Colon cancer Maternal, diagnosed at age 80 Denies family history of Ovarian cancer Thyroid disease Social History Smoking and tobacco/nicotine status: former use of tobacco/nicotine Substance/Drug Use: never Do you think of yourself as: Straight/Heterosexual Vitals/I&O/Wt Last Vital Signs Temp 98.2 F 05/18/24 15:42 Pulse 68 05/18/24 15:42 Resp 15 05/18/24 15:42 BP 98/65 05/18/24 15:42 Pulse Ox 96 05/18/24 15:42 O2 Del Method Nasal Cannula 05/18/24 15:42 O2 Flow Rate 2 05/18/24 15:42 05/18/24 05/18/24 05/18/24 06:59 14:59 22:59 Intake Total 240 / 2920 472 / 472 21.25 / 493.25 Output Total 200 / 2825 300 / 300 Balance 40 / 95 172 / 172 21.25 / 193.25 Weight last 48 hrs Weight 250 lb 11.2 oz Weight 243 lb 8 oz Weight 243 lb Physical Exam Urinary Catheter Management: Avendano: Cath Placed During This Visit: yes Reason for Continuing Indwelling Catheter: Perioperative Use in Selected Surgeries Urinary Catheter Date of Insertion: 05/16/24 Urinary Catheter Time of Insertion: 20:09 Data 05/18/24 11:15 05/18/24 11:15 Coding Level of Care Code Acute Code for Chg Fwd
--- NOTE | 2024-05-18 17:43 | P.PN_ITS ---
Subjective 2 Subjective: The patient is in her room with family. She has multiple family members with her. The pain is well-controlled, but it took 3 people to stand her at bedside and take a couple steps. She will continue to work with therapy. Medications: Reviewed: Yes Vitals/I&O/Wt Last Vital Signs Temp 98.2 F 05/18/24 15:42 Pulse 68 05/18/24 15:42 Resp 15 05/18/24 15:42 BP 98/65 05/18/24 15:42 Pulse Ox 96 05/18/24 15:42 O2 Del Method Nasal Cannula 05/18/24 15:42 O2 Flow Rate 2 05/18/24 15:42 05/18/24 05/18/24 05/18/24 06:59 14:59 22:59 Intake Total 240 / 2920 472 / 472 21.25 / 493.25 Output Total 200 / 2825 300 / 300 Balance 40 / 95 172 / 172 21.25 / 193.25 Weight last 48 hrs Weight 250 lb 11.2 oz Weight 243 lb 8 oz Weight 243 lb Physical Exam 2 Const: COMMON NORMALS: no acute distress, average body habitus, patient oriented x3 and alert GENERAL APPEARANCE: cooperative and comfortable O RIENTATION/CONSCIOUSNESS: Yes awake HENMT: COMMON NORMALS: normocephalic and atraumatic HEAD & SCALP: n ormocephalic and atraumatic Eye: GENERAL EYE: appearance normal, both eyes and all related structures Chest: COMMONS NORMALS: normal inspection of the chest Resp: COMMON NORMALS: normal respiratory effort EFFORT & INSPECTION: Yes able to speak in complete sentences and Yes symmetric chest movement Extremity: LEFT LOWER EXTREMITY: Yes hip joint Left hip: Yes ROM (Not evaluated) and Yes neurovascular exam (Intact distally) Neuro: COMMON NORMALS: patient oriented x3 SENSORIUM/ORIENTATION: Yes alert Psych: COMMON NORMALS: mental status grossly normal APPEARANCE: Yes grossly normal ATTITUDE: Yes calm and Yes engaged ATTENTION/CONCENTRATION: Yes attention grossly intact Skin: COMMON NORMALS: no rashes or lesions noted GENERAL SKIN EXAM: no rashes or lesions noted Urinary Catheter Management: Avendano: Cath Placed During This Visit: yes Reason for Continuing Indwelling Catheter: Perioperative Use in Selected Surgeries Urinary Catheter Date of Insertion: 05/16/24 Urinary Catheter Time of Insertion: 20:09 Data 05/19/24 06:47 05/19/24 06:47 A&P Assessment and plan (1) Fracture, subtrochanteric, left femur, closed: This 68-year-old woman presented to the emergency room as noted above with an subtrochanteric femur fracture extending into the proximal third of the femoral shaft. The patient underwent a very complicated and complex open reduction internal fixation of the femoral shaft fracture with intramedullary fixation of the subtrochanteric fracture and the femoral shaft fracture. The patient has had multiple falls at home. The family was hoping for discharge with home health. I expressed to them that I feel this is a decision that is not st. I have major concerns that when she is discharged, she will not be independent. She has multiple medical reasons for difficulties with recovery. After discussion, they are agreeable to long term. Qualifiers: Encounter type: initial encounter Fracture alignment: displaced Qualified Code(s): S72.22XA - Displaced subtrochanteric fracture of left femur, initial encounter for closed fracture (2) Left femoral shaft fracture: Attestations 2 Medical Necessity Statement*: Per hospitalist team Coding Level of Care Code Acute Code for Chg Fwd Diagnoses Closed displaced subtrochanteric fracture of left femur, initial encounter S72.22XA Encounter type: initial encounter Fracture alignment: displaced Left femoral shaft fracture S72.302A
[2024-05-18 18:55] LABS: Glucose Point of Care 197 mg/dL (70-110)
[2024-05-18 19:20] LABS: Hematocrit 25.6 % (36-47)
[2024-05-18 20:42] LABS: Glucose Point of Care 161 mg/dL (70-110)
[2024-05-18] MEDS: digoxin 250 mcg Tablet PO (20:48)
[2024-05-18] MEDS: oxyCODONE 5 mg IR Tab/Cap PO (20:48)
[2024-05-18] MEDS: metoprolol tartrate 25 mg Tablet PO (20:49)
[2024-05-18 21:36] LABS: Digoxin 0.3 ng/mL (0.6-1.2)
[2024-05-19] VITALS (15 sets, daily range): BP systolic 96–133; BP diastolic 62–82; PULSE 60–139; RESP 15–18; TEMP 36.6–37.2; O2SAT 93–99
[2024-05-19] MEDS: acetaminophen 500 mg Tablet 1000 MG PO ×3 (04:18→21:49)
[2024-05-19] MEDS: levETIRAcetam 500 mg Tablet PO ×3 (04:18→17:37)
[2024-05-19 06:35] LABS: Glucose Point of Care 144 mg/dL (70-110)
[2024-05-19 07:29] LABS: Basophils # 0.1 10^3/uL (0.0-0.1); Basophils % 0.7 %; Eosinophils # 0.5 10^3/uL (0.0-0.8); Eosinophils % 4.1 %; Hematocrit 23.8 % (36-47); Lymphocytes # 3.6 10^3/uL (0.8-4.8); Lymphocytes % 28.8 %; Mean Corpuscular HGB Conc 31.1 g/dL (30-55); Mean Corpuscular Hemoglobin 31.5 pg (27-33); Mean Corpuscular Volume 101.3 fl (85-98); Mean Platelet Volume 10.6 fL (7.4-10.4); Monocytes # 0.9 10^3/uL (0.2-0.9); Monocytes % 7.2 %; Neutrophils # 7.33 10^3/uL (1.8-7.7); Neutrophils % 58.5 %; Nucleated Red Blood Cells % 0.2 %; Platelet Count 180 10^3/cmm (157-399); Red Blood Count 2.35 10^6/uL (3.85-5.65); White Blood Count 12.52 10^3/uL (3.29-11.43)
[2024-05-19 07:47] LABS: Alanine Aminotransferase 9 U/L (0-33); Albumin Level 2.8 g/dL (3.5-5.2); Alkaline Phosphatase 52 U/L (35-105); Anion Gap 11.8 (5-19); Aspartate Amino Transferase 32 U/L (0-32); Blood Urea Nitrogen 26 mg/dL (8-23); Calcium 8.2 mg/dL (8.5-10.5); Carbon Dioxide 25 mmol/L (22-29); Chloride 103 mmol/L (98-107); Creatinine Clr Calc Pharmacy 86.9895; Globulin 2.5 g/dL (1.3-4.6); Glomerular Filtration Rate 71.1 mL/min (90-130); Glucose 145 mg/dL (65-115); Osmolality Calculated 289 mOsm/kg (285-295); Potassium 3.8 mmol/L (3.5-5.1); Sodium 136 mmol/L (136-145); Total Bilirubin 0.3 mg/dL (0.15-1.2); Total Protein 5.3 g/dL (6.6-8.7)
[2024-05-19] MEDS: lidocaine 5% Patch 1 PATCH TOPICAL (08:25)
[2024-05-19] MEDS: insulin lispro 100 unit/1 mL SUBCUT ×4 (08:26→21:49)
--- NOTE | 2024-05-19 09:19 | ECG_ITS ---
[facility] Date: 2024-05-19 Pat Name: Megan Botello Department: Room: 262 Gender: Female Slot Machine Department Floorperson: : 1955 Requested By: Sree Mackenzie Order Number: [id number] [place] MD: Yousif Wilburn M.D. Measurements Intervals [place] Rate: 136 P: 0 [place]: 0 QRS: 17 QRSD: 86 T: 26 QT: 262 QTc: 395 Interpretive Statements ATRIAL FIBRILLATION WITH RAPID VENTRICULAR RESPONSE NONSPECIFIC ST & T-WAVE ABNORMALITY ABNORMAL RHYTHM ECG Compared to ECG 05/18/2024 06:11:50 Ectopic atrial rhythm no longer present T-wave abnormality still present Electronically Signed On 05-20-2024 01:13:13 LAMP REPLACER by Yousif Wilburn M.D. [email or web address]
[2024-05-19] MEDS: digoxin 250 mcg/ml INJ 2 mL IVP (10:28)
[2024-05-19] MEDS: metoprolol tartrate 25 mg Tablet PO (12:04)
[2024-05-19] MEDS: FUROsemide 10 mg/mL SDV 2mL 20 MG IVP (12:04)
[2024-05-19 12:47] LABS: Glucose Point of Care 172 mg/dL (70-110)
[2024-05-19 13:50] LABS: Glucose Point of Care 166 mg/dL (70-110)
[2024-05-19] MEDS: iron sucrose 200 MG in sodium chloride 0.9% (100 ml) 100 ML 220 MG IV (14:39)
[2024-05-19] MEDS: magnesium hydroxide 30 mL UDC PO (15:00)
[2024-05-19] MEDS: sodium chloride 0.9% (100 ml) 100 ML 50 ML (17:38)
--- NOTE | 2024-05-19 17:41 | P.PN_ITS ---
Subjective 2 Subjective: Overnight patient has remained stable. She states pain is well-controlled. Today morning she was found to be in A-fib with RVR with a heart rate going up to 130s. She was seen sitting up in recliner. Denied any nausea, vomiting, headache. Denied any chest pain. Medications: Reviewed: Yes Vitals/I&O/Wt Last Vital Signs Temp 98.1 F 05/19/24 17:04 Pulse 106 H 05/19/24 17:04 Resp 18 05/19/24 17:04 BP 127/82 05/19/24 17:04 Pulse Ox 98 05/19/24 17:04 O2 Del Method Nasal Cannula 05/19/24 15:26 O2 Flow Rate 2 05/19/24 15:26 05/19/24 05/19/24 05/19/24 06:59 14:59 22:59 Intake Total 360 / 1843.25 1314.75 / 1314.75 410 / 1724.75 Output Total 1000 / 2050 1500 / 1500 550 / 2050 Balance -640 / -206.75 -185.25 / -185.25 -140 / -325.25 Weight last 48 hrs Weight 118.614 kg Weight 113.716 kg Physical Exam 2 Narrative: Accompanied by family including her daughter. Const: COMMON NORMALS: patient oriented x3 and alert GENERAL APPEARANCE: c ooperative ORIENTATION/CONSCIOUSNESS: Yes awake HENMT: COMMON NORMALS: oropharynx normal Neck/C-Spine: COMMON NORMALS: no JVD Resp: COMMON NORMALS: normal respiratory effort and clear to auscultation bilaterally AUSCULTATION: clear to auscultation bilaterally Cardio: COMMON NORMALS: no JVD, regular rhythm, S1 normal heart sound present, S2 normal heart sound present and No murmurs present (Cardio) RHYTHM: regular rhythm HEART SOUNDS: S1 normal heart sound present and S2 normal heart sound present GI: COMMON NORMALS: Normal to inspection, nondistended, normoactive bowel sounds present, Soft to palpation and non-tender PALPATION: Yes Soft to palpation Extremity: COMMON NORMALS: no joint enlargement and no pedal edema OTHER: Everted, shortened LLE. Neuro: COMMON NORMALS: patient oriented x3 and moves all extremities S ENSORIUM/ORIENTATION: Yes alert Skin: COMMON NORMALS: no rashes or lesions noted GENERAL SKIN EXAM: no rashes or lesions noted Urinary Catheter Management: Avendano: Cath Placed During This Visit: yes Reason for Continuing Indwelling Catheter: Other Urinary Catheter Date of Insertion: 05/16/24 Urinary Catheter Time of Insertion: 20:09 Data 05/19/24 06:47 05/19/24 06:47 A&P Assessment and plan (1) Fracture, subtrochanteric, left femur, closed: Qualifiers: Encounter type: initial encounter Fracture alignment: displaced Qualified Code(s): S72.22XA - Displaced subtrochanteric fracture of left femur, initial encounter for closed fracture (2) S/P ORIF (open reduction internal fixation) fracture: Postop day 2. Hemoglobin down to 7.4 today. Recheck. If continues to remain low given soft blood pressures and A-fib with RVR will plan to transfuse 1 unit of PRBC. Continue with physical therapy. As patient is in RVR would keep the Avendano catheter for now as patient might require Lasix. Holding off on anticoagulation given acute postoperative anemia. (3) Postoperative anemia: Postoperative in nature. Hemoglobin down to 7.6 with mild hemodynamic changes today. Appreciate iron panel, vitamin B12 and folate levels. Continue with IV iron supplementation. Monitor blood transfusion as above. (4) Anticoagulation adequate with anticoagulant therapy: On Xarelto, currently on hold. Resume once deemed safe by orthopedic surgery. (5) Essential hypertension: (6) Atrial fibrillation: With RVR today. With history of bradycardia at home. Digoxin levels checked to be low. Digoxin to 50 mcg one-time. Repeat digoxin level in AM. For now continue with metoprolol 25 mg twice daily. Dose decreased in setting of bradycardia at home. If continues to remain tachycardic will increase the dose of metoprolol. Qualifiers: Atrial fibrillation type: paroxysmal Qualified Code(s): I48.0 - Paroxysmal atrial fibrillation (7) Diabetes mellitus: Continue with insulin sliding scale. Appreciate A1c. (8) Encounter for postoperative care: (9) Bradycardia: Plan HTN: Goal blood pressure less than 140/90 mmHg with mean over 65. Blood pressure soft today. Holding off on home antihypertensives for now. Uptitrate as per goal blood pressure. Hypoxia: Does have history of COPD and sleep apnea. IV Lasix 20 mg post blood transfusion. Oxygen supplementation keeping saturation over 90%. Wean accordingly. CAD, without prior stenting. Reviewed recent echocardiogram. Grade 2 diastolic dysfunction noted, mitral valve disease with minimal stenosis. Seizure disorder: Continue Keppra Sleep apnea on nightly CPAP, requested History of severe infection requiring multiple surgical procedures with partial colectomy, pancreatectomy, splenectomy, cholecystectomy Discharge plan: Appreciate PT/OT evaluation. Recommend home health referral for SNF. Orthopedics team recommending SNF. Case management alerted. Attestations 2 Medical Necessity Statement*: Requires further hospitalization for management of postoperative anemia requiring blood transfusion, A-fib with RVR in a patient postoperative, ORIF biopsy of discharge planning is sought Diagnoses Closed displaced subtrochanteric fracture of left femur, initial encounter S72.22XA Encounter type: initial encounter Fracture alignment: displaced S/P ORIF (open reduction internal fixation) fracture Z98.890; Z87.81 Postoperative anemia D64.9 Anticoagulation adequate with anticoagulant therapy Z79.01 Essential hypertension I10 Paroxysmal atrial fibrillation I48.0 Atrial fibrillation type: paroxysmal Diabetes mellitus E11.9 Encounter for postoperative care Z48.89 Bradycardia R00.1
[2024-05-19 18:31] LABS: Glucose Point of Care 177 mg/dL (70-110)
[2024-05-19 20:53] LABS: Basophils # 0.1 10^3/uL (0.0-0.1); Basophils % 0.5 %; Eosinophils # 0.7 10^3/uL (0.0-0.8); Eosinophils % 4.4 %; Hematocrit 26.9 % (36-47); Lymphocytes # 5.5 10^3/uL (0.8-4.8); Lymphocytes % 37.3 %; Mean Corpuscular HGB Conc 31.6 g/dL (30-55); Mean Corpuscular Hemoglobin 31.1 pg (27-33); Mean Corpuscular Volume 98.5 fl (85-98); Mean Platelet Volume 10.3 fL (7.4-10.4); Neutrophils # 7.44 10^3/uL (1.8-7.7); Neutrophils % 50.1 %; Nucleated Red Blood Cells % 0.3 %; Platelet Count 209 10^3/cmm (157-399); Red Blood Count 2.73 10^6/uL (3.85-5.65); Red Cell Distribution Width 15.4 % (12.1-15.1); White Blood Count 14.85 10^3/uL (3.29-11.43)
[2024-05-19 21:05] LABS: Glucose Point of Care 143 mg/dL (70-110)
[2024-05-19 21:31] LABS: Slide Review Slide Review Perform
--- NOTE | 2024-05-19 21:41 | PC.NURSE ---
Digoxin and Metoprolol Pt is frequently having intervals of bradycardia followed by intervals of tachycardia on telemetry. Pt's heart rate got down to [address] Lopes notified and ordered to hold the pt's evening doses of digoxin and metoprolol.
[2024-05-20] VITALS (13 sets, daily range): BP systolic 96–128; BP diastolic 63–86; PULSE 81–116; RESP 15–18; TEMP 36.4–37.4; O2SAT 92–98
[2024-05-20] MEDS: acetaminophen 500 mg Tablet 1000 MG PO (04:33)
[2024-05-20] MEDS: oxyCODONE 5 mg IR Tab/Cap PO ×3 (04:37→22:15)
[2024-05-20 06:25] LABS: Glucose Point of Care 159 mg/dL (70-110)
[2024-05-20 06:29] LABS: Basophils # 0.1 10^3/uL (0.0-0.1); Basophils % 0.7 %; Eosinophils # 0.7 10^3/uL (0.0-0.8); Eosinophils % 5.2 %; Hematocrit 26.2 % (36-47); Lymphocytes # 4.3 10^3/uL (0.8-4.8); Lymphocytes % 30.9 %; Mean Corpuscular HGB Conc 32.1 g/dL (30-55); Mean Corpuscular Hemoglobin 31.1 pg (27-33); Mean Platelet Volume 10.2 fL (7.4-10.4); Monocytes # 0.9 10^3/uL (0.2-0.9); Monocytes % 6.6 %; Neutrophils # 7.83 10^3/uL (1.8-7.7); Nucleated Red Blood Cells # 0.1 /100WBC; Nucleated Red Blood Cells % 0.4 %; Platelet Count 223 10^3/cmm (157-399); Red Cell Distribution Width 15.7 % (12.1-15.1); White Blood Count 13.97 10^3/uL (3.29-11.43)
[2024-05-20 06:47] LABS: Digoxin 0.5 ng/mL (0.6-1.2)
[2024-05-20 06:51] LABS: Alanine Aminotransferase 9 U/L (0-33); Albumin Level 3.1 g/dL (3.5-5.2); Alkaline Phosphatase 54 U/L (35-105); Anion Gap 14.1 (5-19); Aspartate Amino Transferase 26 U/L (0-32); Blood Urea Nitrogen 27 mg/dL (8-23); Calcium 8.8 mg/dL (8.5-10.5); Carbon Dioxide 26 mmol/L (22-29); Chloride 102 mmol/L (98-107); Creatinine Clr Calc Pharmacy 85.7159; Globulin 2.8 g/dL (1.3-4.6); Glucose 151 mg/dL (65-115); Osmolality Calculated 294 mOsm/kg (285-295); Potassium 4.1 mmol/L (3.5-5.1); Sodium 138 mmol/L (136-145); Total Bilirubin 0.4 mg/dL (0.15-1.2); Total Protein 5.9 g/dL (6.6-8.7)
[2024-05-20 06:56] LABS: Magnesium 2.1 mg/dL (1.7-2.3)
[2024-05-20] MEDS: lidocaine 5% Patch 1 PATCH TOPICAL (08:22)
[2024-05-20] MEDS: levETIRAcetam 500 mg Tablet PO ×2 (08:23→17:33)
[2024-05-20] MEDS: metoprolol tartrate 25 mg Tablet PO ×2 (08:23→20:00)
[2024-05-20 09:31] LABS: Glucose Point of Care 173 mg/dL (70-110)
[2024-05-20] MEDS: insulin lispro 100 unit/1 mL SUBCUT ×4 (09:33→22:07)
--- NOTE | 2024-05-20 12:04 | PC.SOCIAL ---
IMM Update Pg. 2 of IMM updated. Initialed, dated, and timed, copy provided at bedside.
[2024-05-20] MEDS: iron sucrose 200 MG in sodium chloride 0.9% (100 ml) 100 ML 220 MG IV (12:46)
[2024-05-20 13:19] LABS: Glucose Point of Care 155 mg/dL (70-110)
--- NOTE | 2024-05-20 13:58 | P.PN_ITS ---
Subjective 2 Subjective: The patient is in her room with family. Resting in chair at bedside. She has multiple family members with her, to include her . The pain is well- controlled, with oral medications. Has been working with physical therapy. Had acute A-fib with RVR with elevated heart rate in the 130s. This was managed with blood transfusion and fluids. Patient is now stable and having no current symptoms of nausea, vomiting headache or chest pain. Medications: Reviewed: Yes Vitals/I&O/Wt Last Vital Signs Temp 97.6 F 05/20/24 12:28 Pulse 96 05/20/24 12:28 Resp 17 05/20/24 12:28 BP 96/64 05/20/24 12:28 Pulse Ox 94 05/20/24 12:28 O2 Del Method Room Air 05/20/24 12:28 O2 Flow Rate 1 05/20/24 10:50 05/19/24 05/20/24 05/20/24 22:59 06:59 14:59 Intake Total 1100 / 2414.75 400 / 2814.75 470 / 470 Output Total 850 / 2350 900 / 3250 Balance 250 / 64.75 -500 / -435.25 470 / 470 Weight last 48 hrs Weight 254 lb 12.8 oz Weight 261 lb 8 oz Physical Exam 2 Const: COMMON NORMALS: no acute distress, average body habitus, patient oriented x3 and alert GENERAL APPEARANCE: cooperative and comfortable O RIENTATION/CONSCIOUSNESS: Yes awake HENMT: COMMON NORMALS: normocephalic and atraumatic HEAD & SCALP: n ormocephalic and atraumatic Eye: GENERAL EYE: appearance normal, both eyes and all related structures Chest: COMMONS NORMALS: normal inspection of the chest Resp: COMMON NORMALS: normal respiratory effort EFFORT & INSPECTION: Yes able to speak in complete sentences and Yes symmetric chest movement Extremity: LEFT LOWER EXTREMITY: Yes hip joint Left hip: Yes ROM (Not evaluated) and Yes neurovascular exam (Intact distally) Neuro: COMMON NORMALS: patient oriented x3 SENSORIUM/ORIENTATION: Yes alert Psych: COMMON NORMALS: mental status grossly normal APPEARANCE: Yes grossly normal ATTITUDE: Yes calm and Yes engaged ATTENTION/CONCENTRATION: Yes attention grossly intact Skin: COMMON NORMALS: no rashes or lesions noted GENERAL SKIN EXAM: no rashes or lesions noted Urinary Catheter Management: Avendano: Cath Placed During This Visit: yes, but has since been removed by the nurse Reason for Continuing Indwelling Catheter: Decision to DC Catheter Urinary Catheter Date of Insertion: 05/16/24 Urinary Catheter Time of Insertion: 20:09 Date Urinary Catheter Removed: 05/20/24 Time Urinary Catheter Discontinued: 06:32 Data 05/20/24 06:12 05/20/24 06:12 A&P Assessment and plan (1) Fracture, subtrochanteric, left femur, closed: This 68-year-old woman presented to the emergency room as noted above with an subtrochanteric femur fracture extending into the proximal third of the femoral shaft. Patient is doing well postoperative day 2. She has been working with physical therapy and her pain has been well-managed with oral medications. Patient is currently being managed with the medical service due to recent acute atrial fibrillation with RVR. She is now stable and being managed by the medical service. Upon leaving the patient's room, she was up to work with physical therapy. Patient is orthopedically stable for discharge to [facility] facility, when approved by insurance. Will continue to be managed by the medical service until discharge. Continue working with therapy services. Qualifiers: Encounter type: initial encounter Fracture alignment: displaced Qualified Code(s): S72.22XA - Displaced subtrochanteric fracture of left femur, initial encounter for closed fracture (2) Left femoral shaft fracture: Attestations 2 Medical Necessity Statement*: Per hospitalist team Coding Level of Care Code Acute Code for Chg Fwd Diagnoses Closed displaced subtrochanteric fracture of left femur, initial encounter S72.22XA Encounter type: initial encounter Fracture alignment: displaced Left femoral shaft fracture S72.302A
--- NOTE | 2024-05-20 15:58 | P.PN_ITS ---
Vitals/I&O/Wt Last Vital Signs Temp 97.6 F 05/20/24 12:28 Pulse 108 H 05/20/24 14:00 Resp 17 05/20/24 12:28 BP 96/64 05/20/24 12:28 Pulse Ox 94 05/20/24 12:28 O2 Del Method Room Air 05/20/24 12:28 O2 Flow Rate 1 05/20/24 10:50 05/20/24 05/20/24 05/20/24 06:59 14:59 22:59 Intake Total 400 / 2814.75 470 / 470 Output Total 900 / 3250 Balance -500 / -435.25 470 / 470 Weight last 48 hrs Weight 115.575 kg Weight 118.614 kg Physical Exam 2 Narrative: Accompanied by family including her daughter. Const: COMMON NORMALS: patient oriented x3 and alert GENERAL APPEARANCE: c ooperative ORIENTATION/CONSCIOUSNESS: Yes awake HENMT: COMMON NORMALS: oropharynx normal Neck/C-Spine: COMMON NORMALS: no JVD Resp: COMMON NORMALS: normal respiratory effort and clear to auscultation bilaterally AUSCULTATION: clear to auscultation bilaterally Cardio: COMMON NORMALS: no JVD, regular rhythm, S1 normal heart sound present, S2 normal heart sound present and No murmurs present (Cardio) RHYTHM: regular rhythm HEART SOUNDS: S1 normal heart sound present and S2 normal heart sound present GI: COMMON NORMALS: Normal to inspection, nondistended, normoactive bowel sounds present, Soft to palpation and non-tender PALPATION: Yes Soft to palpation Extremity: COMMON NORMALS: no joint enlargement and no pedal edema OTHER: Everted, shortened LLE. Neuro: COMMON NORMALS: patient oriented x3 and moves all extremities S ENSORIUM/ORIENTATION: Yes alert Skin: COMMON NORMALS: no rashes or lesions noted GENERAL SKIN EXAM: no rashes or lesions noted Urinary Catheter Management: Avendano: Cath Placed During This Visit: yes, but has since been removed by the nurse Reason for Continuing Indwelling Catheter: Decision to DC Catheter Urinary Catheter Date of Insertion: 05/16/24 Urinary Catheter Time of Insertion: 20:09 Date Urinary Catheter Removed: 05/20/24 Time Urinary Catheter Discontinued: 06:32 Data 05/20/24 06:12 05/20/24 06:12 A&P Assessment and plan (1) Fracture, subtrochanteric, left femur, closed: Qualifiers: Encounter type: initial encounter Fracture alignment: displaced Qualified Code(s): S72.22XA - Displaced subtrochanteric fracture of left femur, initial encounter for closed fracture (2) S/P ORIF (open reduction internal fixation) fracture: Postop day 2. Hemoglobin down to 7.4 today. Recheck. If continues to remain low given soft blood pressures and A-fib with RVR will plan to transfuse 1 unit of PRBC. Continue with physical therapy. As patient is in RVR would keep the Avendano catheter for now as patient might require Lasix. Holding off on anticoagulation given acute postoperative anemia. (3) Postoperative anemia: Postoperative in nature. Hemoglobin down to 7.6 with mild hemodynamic changes today. Appreciate iron panel, vitamin B12 and folate levels. Continue with IV iron supplementation. Monitor blood transfusion as above. (4) Anticoagulation adequate with anticoagulant therapy: On Xarelto, currently on hold. Resume once deemed safe by orthopedic surgery. (5) Essential hypertension: (6) Atrial fibrillation: With RVR today. With history of bradycardia at home. Digoxin levels checked to be low. Digoxin to 50 mcg one-time. Repeat digoxin level in AM. For now continue with metoprolol 25 mg twice daily. Dose decreased in setting of bradycardia at home. If continues to remain tachycardic will increase the dose of metoprolol. Qualifiers: Atrial fibrillation type: paroxysmal Qualified Code(s): I48.0 - Paroxysmal atrial fibrillation (7) Diabetes mellitus: Continue with insulin sliding scale. Appreciate A1c. (8) Encounter for postoperative care: (9) Bradycardia: Plan HTN: Goal blood pressure less than 140/90 mmHg with mean over 65. Blood pressure soft today. Holding off on home antihypertensives for now. Uptitrate as per goal blood pressure. Hypoxia: Does have history of COPD and sleep apnea. IV Lasix 20 mg post blood transfusion. Oxygen supplementation keeping saturation over 90%. Wean accordingly. CAD, without prior stenting. Reviewed recent echocardiogram. Grade 2 diastolic dysfunction noted, mitral valve disease with minimal stenosis. Seizure disorder: Continue Keppra Sleep apnea on nightly CPAP, requested History of severe infection requiring multiple surgical procedures with partial colectomy, pancreatectomy, splenectomy, cholecystectomy Plan for the day: Post monitor blood transfusion yesterday. Hemoglobin stable. Recheck in afternoon. If stable will start home dose of Xarelto. Heart rate better controlled. Continue with home dose of digoxin and metoprolol 25 mg twice daily. Digoxin level still low. Will give an extra dose of 125 mcg of IV digoxin. Recheck digoxin levels in AM. Continue home dose of Keppra. Physical therapy. Discharge plan: Appreciate PT/OT evaluation. Recommend home health referral for SNF. Orthopedics team recommending SNF. Case management alerted. Attestations 2 Medical Necessity Statement*: Requires further hospitalization for management of postoperative anemia, A-fib with RVR requiring digoxin in a patient post-ORIF passive discharge planning is sought Diagnoses Closed displaced subtrochanteric fracture of left femur, initial encounter S72.22XA Encounter type: initial encounter Fracture alignment: displaced S/P ORIF (open reduction internal fixation) fracture Z98.890; Z87.81 Postoperative anemia D64.9 Anticoagulation adequate with anticoagulant therapy Z79.01 Essential hypertension I10 Paroxysmal atrial fibrillation I48.0 Atrial fibrillation type: paroxysmal Diabetes mellitus E11.9 Encounter for postoperative care Z48.89 Bradycardia R00.1
[2024-05-20] MEDS: digoxin 250 mcg/ml INJ 2 mL 125 MCG IVP (17:33)
[2024-05-20] MEDS: rivaroxaban 10 mg Tablet PO (17:34)
[2024-05-20 18:50] LABS: Glucose Point of Care 201 mg/dL (70-110)
[2024-05-20] MEDS: digoxin 250 mcg Tablet PO (20:04)
[2024-05-20 20:17] LABS: Glucose Point of Care 157 mg/dL (70-110)
[2024-05-21] VITALS (7 sets, daily range): BP systolic 113–136; BP diastolic 75–88; PULSE 79–100; RESP 16–18; TEMP 36.4–36.7; O2SAT 92–96
[2024-05-21 06:15] LABS: Glucose Point of Care 167 mg/dL (70-110)
[2024-05-21] MEDS: oxyCODONE 5 mg IR Tab/Cap PO ×2 (07:09→11:15)
[2024-05-21] MEDS: insulin lispro 100 unit/1 mL SUBCUT (09:09)
[2024-05-21] MEDS: levETIRAcetam 500 mg Tablet PO (09:09)
[2024-05-21] MEDS: metoprolol tartrate 25 mg Tablet PO (09:09)
[2024-05-21] MEDS: lidocaine 5% Patch 1 PATCH TOPICAL (09:10)
[2024-05-21 11:38] LABS: Glucose Point of Care 127 mg/dL (70-110)
--- NOTE | 2024-05-21 12:37 | PM.DCS ---
Discharge Providers Date of Admission: 05/16/24 18:00 Date of Discharge: May 21, 2024 Attending Provider at Admission: Yanick Luna Attending Provider at Discharge: Sree Mackenzie MD Consults: Orthopedics: Dr. Mac Primary Care Provider: Peña Basilio MD Diagnoses at Discharge Discharge Diagnosis (1) Fracture, subtrochanteric, left femur, closed: Status: Acute Qualifiers: Encounter type: initial encounter Fracture alignment: displaced Qualified Code(s): S72.22XA - Displaced subtrochanteric fracture of left femur, initial encounter for closed fracture (2) S/P ORIF (open reduction internal fixation) fracture: Status: Acute (3) Postoperative anemia: Status: Acute (4) Anticoagulation adequate with anticoagulant therapy: Status: Chronic Permanent problem details: Xarelto (5) Essential hypertension: Status: Chronic (6) Atrial fibrillation: Status: Chronic Qualifiers: Atrial fibrillation type: paroxysmal Qualified Code(s): I48.0 - Paroxysmal atrial fibrillation Permanent problem details: On Digoxin and Xarelto (7) Diabetes mellitus: Status: Chronic (8) Encounter for postoperative care: Status: Acute (9) Bradycardia: Status: Acute Reason for Visit Reason for Visit: FALL Brief History: History as per HPI: Pleasant 68-year-old lady with history of atrial fibrillation on anticoagulation, HTN, DM2, CAD, epilepsy, sleep apnea on nightly CPAP, history of severe infection requiring multiple surgical procedures with partial colectomy, pancreatectomy, splenectomy, cholecystectomy. She was grabbing a water bottle in her kitchen and when turning around tripped and fell on the hard kitchen floor with resultant severe pain in the left hip with a guarded, shortened extremity, and ER with finding of close left hip fracture. Orthopedics has been consulted. She has otherwise been at baseline state of health. In ER she is one 1 L nasal cannula oxygen after receiving fentanyl for pain control with some transient somnolence, currently she is awake and alert. Hospital Course Hospital Course She was admitted to the hospital further evaluation and management of closed left hip fracture. Orthopedics was consulted and she underwent ORIF in 05/17. Postoperative stay was complicated by her developing anemia for which she required monitor blood transfusion. Patient gave history of recurrent episode of bradycardia at home for which her rate limiting drugs were adjusted. She was found to have subtherapeutic level of digoxin and hence was given extra IV digoxin after which her heart rate remained better controlled. During hospitalization she was found to have soft blood pressures for which her home antihypertensives adjusted. She has been discharged to SNF for further rehabitation on adjusted medications as below. Physical Exam Narrative: Accompanied by family including her daughter. Const: COMMON NORMALS: patient oriented x3 and alert GENERAL APPEARANCE: cooperative ORIENTATION/CONSCIOUSNESS: Yes awake HENMT: COMMON NORMALS: oropharynx normal Neck/C-Spine: COMMON NORMALS: no JVD Resp: COMMON NORMALS: normal respiratory effort and clear to auscultation bilaterally AUSCULTATION: clear to auscultation bilaterally Cardio: COMMON NORMALS: no JVD, regular rhythm, S1 normal heart sound present, S2 normal heart sound present and No murmurs present (Cardio) RHYTHM: regular rhythm HEART SOUNDS: S1 normal heart sound present and S2 normal heart sound present GI: COMMON NORMALS: Normal to inspection, nondistended, normoactive bowel sounds present, Soft to palpation and non-tender PALPATION: Yes Soft to palpation Extremity: COMMON NORMALS: no joint enlargement and no pedal edema OTHER: Everted, shortened LLE. Neuro: COMMON NORMALS: patient oriented x3 and moves all extremities SENSORIUM/ORIENTATION: Yes alert Skin: COMMON NORMALS: no rashes or lesions noted GENERAL SKIN EXAM: no rashes or lesions noted Urinary Catheter Management: Avendano: Cath Placed During This Visit: yes, but has since been removed by the nurse Reason for Continuing Indwelling Catheter: Decision to DC Catheter Urinary Catheter Date of Insertion: 05/16/24 Urinary Catheter Time of Insertion: 20:09 Date Urinary Catheter Removed: 05/20/24 Time Urinary Catheter Discontinued: 06:32 Discharge Data Studies Completed and Pending Completed Studies During Hospitalization Category Date Time Status CXRP [XR chest 1V portable 61514] Stat Exams 05/16/24 16:31 Completed XR femur LT min 2V* [id number] Routine Exams 05/17/24 08:00 Completed XR femur LT min 2V* [id number] Routine Exams 05/17/24 13:08 Completed XR hip LT 2-3V wo/w pel* [id number] Stat Exams 05/16/24 16:31 Completed Pending at discharge Category Date Time Status Complete Blood Count w/Auto AM LABS Lab 05/21/24 04:00 Ordered Comprehensive Metabolic Panel AM LABS Lab 05/21/24 04:00 Ordered DIG [Digoxin] AM LABS Lab 05/21/24 04:00 Ordered MAG [Magnesium] AM LABS Lab 05/21/24 04:00 Ordered MAG [Magnesium] AM LABS Lab 05/22/24 04:00 Ordered Radiology Impressions Chest X-Ray 05/16/24 16:31 IMPRESSION: Mild cardiomegaly. Hip/Pelvis X-Ray 05/16/24 16:31 IMPRESSION: Subtrochanteric hip fracture with foreshortening. Femur X-Ray 05/17/24 13:08 IMPRESSION: 1. Status post left transfemoral nailing with near anatomical alignment. 2. No new acute fractures Laboratory Results WBC 13.97 10^3/uL (3.29-11.43) H 05/20/24 06:12 RBC 2.70 10^6/uL (3.85-5.65) L 05/20/24 06:12 Hgb 9.10 g/dL (11.27-16.99) L 05/20/24 16:10 Hct 31.0 % (36-47) L 05/20/24 16:10 MCV 97.0 fl (85-98) 05/20/24 06:12 MCH 31.1 pg (27-33) 05/20/24 06:12 MCHC 32.1 g/dL (30-55) 05/20/24 06:12 RDW 15.7 % (12.1-15.1) H 05/20/24 06:12 Plt Count 223 10^3/cmm (157-399) 05/20/24 06:12 MPV 10.2 fL (7.4-10.4) 05/20/24 06:12 Neut % (Auto) 56.0 % 05/20/24 06:12 Lymph % (Auto) 30.9 % 05/20/24 06:12 Dickson % (Auto) 6.6 % 05/20/24 06:12 Eos % (Auto) 5.2 % 05/20/24 06:12 Baso % (Auto) 0.7 % 05/20/24 06:12 Neut # (Auto) 7.83 10^3/uL (1.8-7.7) H 05/20/24 06:12 Lymph # (Auto) 4.3 10^3/uL (0.8-4.8) 05/20/24 06:12 Dickson # (Auto) 0.9 10^3/uL (0.2-0.9) 05/20/24 06:12 Eos # (Auto) 0.7 10^3/uL (0.0-0.8) 05/20/24 06:12 Baso # (Auto) 0.1 10^3/uL (0.0-0.1) 05/20/24 06:12 Nucleated RBC % (auto) 0.4 % 05/20/24 06:12 Nucleated RBCs # 0.1 /100WBC 05/20/24 06:12 PT 17.30 SECONDS (12.1-14.9) H 05/16/24 18:34 INR 1.37 (0.8-1.2) H 05/16/24 18:34 Sodium 138 mmol/L (136-145) 05/20/24 06:12 Potassium 4.1 mmol/L (3.5-5.1) 05/20/24 06:12 Chloride 102 mmol/L (98-107) 05/20/24 06:12 Carbon Dioxide 26 mmol/L (22-29) 05/20/24 06:12 Anion Gap 14.1 (5-19) 05/20/24 06:12 BUN 27 mg/dL (8-23) H 05/20/24 06:12 Creatinine 0.7 mg/dL (0.5-0.9) 05/20/24 06:12 GFR Calculation 83.0 mL/min (90-130) L 05/20/24 06:12 Glucose 151 mg/dL (65-115) H 05/20/24 06:12 POC Glucose 127 mg/dL (70-110) H 05/21/24 10:54 Calculated Osmolality 294 mOsm/kg (285-295) 05/20/24 06:12 Calcium 8.8 mg/dL (8.5-10.5) 05/20/24 06:12 Magnesium 2.1 mg/dL (1.7-2.3) 05/20/24 06:12 Iron 26 ug/dL (37-145) L 05/18/24 11:15 TIBC 192 mcg/dl 05/18/24 11:15 % Saturation 13.5 % (20-50) L 05/18/24 11:15 Unsat Iron Binding 166 ug/dL (112-347) 05/18/24 11:15 Total Bilirubin 0.4 mg/dL (0.15-1.2) 05/20/24 06:12 AST 26 U/L (0-32) 05/20/24 06:12 ALT 9 U/L (0-33) 05/20/24 06:12 Alkaline Phosphatase 54 U/L (35-105) 05/20/24 06:12 Troponin T 5th Gen ng/L 16 ng/L (0-10) H 05/17/24 05:30 Total Protein 5.9 g/dL (6.6-8.7) L 05/20/24 06:12 Albumin 3.1 g/dL (3.5-5.2) L 05/20/24 06:12 Globulin 2.8 g/dL (1.3-4.6) 05/20/24 06:12 Vitamin B12 355 pg/mL (232-1245) 05/18/24 11:15 Folate 7.0 ng/mL (4.8-37.3) 05/19/24 06:47 TSH 1.50 uIU/mL (0.27-4.20) 05/18/24 11:15 Urine Color Yellow (Yellow) 05/16/24 22:26 Urine Appearance Clear (CLEAR) 05/16/24 22:26 Urine pH 5.0 (5-7) 05/16/24 22:26 Ur Specific [place] 1.018 (1.005-1.030) 05/16/24 22:26 Urine Protein Negative (Negative) 05/16/24 22:26 Urine Glucose (UA) Negative (Normal) 05/16/24 22:26 Urine Ketones Negative (Negative) 05/16/24 22:26 Urine Blood Negative (Negative) 05/16/24 22:26 Urine Nitrate Negative (Negative) 05/16/24 22:26 Urine Bilirubin Negative (Negative) 05/16/24 22:26 Urine Urobilinogen 0.2 mg/dL (Negative) 05/16/24 22:26 Ur Leukocyte Esterase Negative (Negative) 05/16/24 22:26 Digoxin 0.5 ng/mL (0.6-1.2) L 12/11/24 06:12 Blood Type O Positive 05/17/24 05:30 Rho(D) Type Rh positive 05/17/24 05:30 Antibody Screen Positive 05/17/24 05:30 Antibody Identification Anti-E 05/17/24 05:30 Antigen Identification E Antigen - NEGATIVE 05/17/24 05:30 Crossmatch See Detail 05/17/24 05:30 Vitals Last Vital Signs Temp 97.6 F 05/21/24 11:14 Pulse 81 05/21/24 11:14 Resp 18 05/21/24 11:15 BP 113/76 05/21/24 11:14 Pulse Ox 96 05/21/24 11:14 O2 Del Method Room Air 05/21/24 11:14 O2 Flow Rate 1 05/20/24 10:50 Discharge Plan Discharge Patient Disposition: Xfer SNF Condition: Stable Prescriptions: New dapagliflozin propanediol [Farxiga] 10 mg tablet 10 mg PO DAILY Qty: 60 0RF ferrous gluconate 324 mg (37.5 mg iron) tablet 324 mg PO BID Qty: 60 0RF Continued coenzyme Q10 [Co Q-10] 100 mg capsule 100 mg PO QAM turmeric root extract 500 mg capsule 500 mg PO BID Patient Comments: bid cholecalciferol (vitamin D3) 25 mcg (1,000 unit) capsule 25 mcg PO BEDTIME levetiracetam 500 mg tablet 500 mg PO BID Qty: 180 3RF metformin 500 mg tablet extended release 24 hr 1,000 mg PO QAM 90 Days Qty: 180 1RF digoxin 250 mcg (0.25 mg) tablet 250 mcg PO BEDTIME Qty: 90 3RF Xarelto 20 mg tablet 20 mg PO BEDTIME Qty: 90 3RF Rx Instructions: must administer with evening meal omega-3 acid ethyl esters 1 gram capsule 2 g PO BID nitroglycerin 0.3 mg tablet, sublingual 0.3 mg sublingual Q5M PRN (Reason: chest pain) Qty: 30 0RF Rx Instructions: do not exceed 3 doses per episode vitamin E 670 mg (1,000 unit) Capsule 1 cap PO DAILY zinc acetate 50 mg (zinc) Capsule 50 mg PO DAILY acetaminophen 500 mg Tablet 500 mg PO Q6H PRN (Reason: Pain) berberine-herbal comb no.18 Capsule 1 cap PO DAILY PreserVision AREDS 2,148 mcg-113 mg-45 mg-17.4mg Tablet 1 tab PO BID Rx Instructions: administer with AM and PM meals magnesium oxide 400 mg magnesium Tablet 800 mg PO BEDTIME isosorbide mononitrate 30 mg tablet extended release 24 hr 30 mg PO BID pentoxifylline 400 mg tablet extended release See Rx Instructions .ROUTE .COMPLEX Rx Instructions: 800mg (2 tabs) po in the am and 400mg (1 tab) po at bedtime (DME) CPAP tubing and mask See Rx Instructions .Route .MEDSUPPLY Qty: 1 0RF Rx Instructions: Please provide replacement mask and tubing due to contamination from medical condition vitamin A 2,400 mcg Capsule 2,400 mcg PO DAILY potassium 99 mg Tablet 99 mg PO QPM germán (Zingiber officinalis) 500 mg Capsule 500 mg PO DAILY Changed metoprolol tartrate 25 mg tablet 25 mg PO BID Qty: 60 0RF Discontinued losartan 100 mg tablet 100 mg PO QAM Qty: 90 1RF hydrochlorothiazide 25 mg tablet 25 mg PO QAM Qty: 90 1RF Discharge Orders: Discharge Order (Routine); Ordered 05/21/24 Ordered By: Sree Mackenzie Referrals: [facility] [Outside] Jennifer Caba MD [Physician] - 06/01/24 9:30 am Peña Basilio MD [Primary Care Provider] - 2 weeks Discharge Diet: Cardiac and Diabetic Discharge Activity: Resume usual activity Patient Instructions: Acute Wound Care (DC), Opioid Safety, Post Anesthesia Care Activity Restrictions/Additional Instructions: Medications of losartan and hydrochlorothiazide have been stopped for now. Dose of metoprolol has been decreased to 25 mg twice daily. Continue with current dose of digoxin. Continue with home dose of metformin. Farxiga has been added. Continue with aggressive physical therapy. Follow-up with a primary care provider within next 2 weeks. Discharge Attestations Time Spent in Discharge Care*: greater than 30 min Specific Discharge Activities: educating patient, discussing with pcp/other providers, discussing with corrections caseworker/social workers/dc planners, documenting/other paperwork and evaluating patient/reviewing data Status at Discharge: Cognitive status at discharge: cognitively intact, Behavioral status at discharge: cooperative, Functional status at discharge: uses cane/walker, Overall status at discharge: patient is progressing back to baseline Quality Metrics Clinical Quality Measures [ No reported AMI, CVA or VTE this stay] Coding Level of Care Code 95909 Total time (in minutes) for Discharge: 60 Diagnoses Closed displaced subtrochanteric fracture of left femur, initial encounter S72.22XA Encounter type: initial encounter Fracture alignment: displaced S/P ORIF (open reduction internal fixation) fracture Z98.890; Z87.81 Postoperative anemia D64.9 Anticoagulation adequate with anticoagulant therapy Z79.01 Essential hypertension I10 Paroxysmal atrial fibrillation I48.0 Atrial fibrillation type: paroxysmal Diabetes mellitus E11.9 Encounter for postoperative care Z48.89 Bradycardia R00.1
[2024-05-21 13:11] LABS: Basophils # 0.1 10^3/uL (0.0-0.1); Basophils % 0.5 %; Eosinophils # 0.5 10^3/uL (0.0-0.8); Eosinophils % 3.2 %; Hematocrit 28.6 % (36-47); Lymphocytes # 4.1 10^3/uL (0.8-4.8); Lymphocytes % 28.4 %; Mean Corpuscular HGB Conc 31.5 g/dL (30-55); Mean Corpuscular Hemoglobin 30.7 pg (27-33); Mean Corpuscular Volume 97.6 fl (85-98); Mean Platelet Volume 9.7 fL (7.4-10.4); Monocytes % 6.7 %; Neutrophils # 8.62 10^3/uL (1.8-7.7); Neutrophils % 59.9 %; Nucleated Red Blood Cells # 0.1 /100WBC; Nucleated Red Blood Cells % 0.9 %; Platelet Count 293 10^3/cmm (157-399); Red Blood Count 2.93 10^6/uL (3.85-5.65); Red Cell Distribution Width 15.2 % (12.1-15.1); White Blood Count 14.39 10^3/uL (3.29-11.43)
--- NOTE | 2024-05-21 13:31 | PM.PN ---
Subjective Subjective: The patient is in her room with family. Resting in chair at bedside. The pain is well-controlled, with oral medications. Has been working with physical therapy. Denies any current symptoms of nausea, vomiting, chest pain, shortness of breath or other acute symptoms. Medications: Reviewed: Yes Vitals/I&O/Wt Last Vital Signs Temp 97.6 F 05/21/24 11:14 Pulse 81 05/21/24 11:14 Resp 18 05/21/24 11:15 BP 113/76 05/21/24 11:14 Pulse Ox 96 05/21/24 11:14 O2 Del Method Room Air 05/21/24 11:14 O2 Flow Rate 1 05/20/24 10:50 05/20/24 05/21/24 05/21/24 22:59 06:59 14:59 Intake Total 960 / 1430 120 / 1550 240 / 240 Output Total 900 / 900 Balance 60 / 530 120 / 650 240 / 240 Weight last 48 hrs Weight 254 lb 9.6 oz Weight 254 lb 12.8 oz Physical Exam Const: COMMON NORMALS: no acute distress, average body habitus, patient oriented x3 and alert GENERAL APPEARANCE: cooperative and comfortable ORIENTATION/CONSCIOUSNESS: Yes awake HENMT: COMMON NORMALS: normocephalic and atraumatic HEAD & SCALP: normocephalic and atraumatic Eye: GENERAL EYE: appearance normal, both eyes and all related structures Chest: COMMONS NORMALS: normal inspection of the chest Resp: COMMON NORMALS: normal respiratory effort EFFORT & INSPECTION: Yes able to speak in complete sentences and Yes symmetric chest movement Extremity: LEFT LOWER EXTREMITY: Yes hip joint Left hip: Yes inspection (PTOP dressings are dry and intact. Bruising to hip, with healing change.), Yes ROM (Not evaluated) and Yes neurovascular exam (Intact distally) Neuro: COMMON NORMALS: patient oriented x3 SENSORIUM/ORIENTATION: Yes alert Psych: COMMON NORMALS: mental status grossly normal APPEARANCE: Yes grossly normal ATTITUDE: Yes calm and Yes engaged ATTENTION/CONCENTRATION: Yes attention grossly intact Skin: RASHES: rashes noted (Contact dermatitis appearing rash to left lower back/buttock. ) and other (No S/S infection. No S/S shingles. ) Urinary Catheter Management: Avendano: Cath Placed During This Visit: yes, but has since been removed by the nurse Reason for Continuing Indwelling Catheter: Decision to DC Catheter Urinary Catheter Date of Insertion: 05/16/24 Urinary Catheter Time of Insertion: 20:09 Date Urinary Catheter Removed: 05/20/24 Time Urinary Catheter Discontinued: 06:32 Data 05/21/24 13:02 05/21/24 13:02 A&P Assessment and plan (1) S/P ORIF (open reduction internal fixation) fracture: Patient is a 68-year-old female. She is doing quite well postoperatively. Her postoperative pain has been well-controlled with oral medications. She has been up and active with physical therapy today and is actively starting to work with occupational therapy after completion of these rounds. Postoperative dressings are clean, dry and intact. Bruising and swelling to the thigh are resolving. Patient does have complaints of acute onset of itchy, irritated, erythematous contact dermatitis type rash to the left lower back/buttock, spreading to mid back and right side. No sign or symptom of infection. No appearance of shingles. We will start her on topical hydrocortisone cream. This is likely due to her environment change, increased pressure to site due to decreased ambulation and the use of briefs/friction. Will continue to monitor this. Is stable for orthopedic discharge when approved by hospitalist team and insurance. (2) Fracture, subtrochanteric, left femur, closed: Qualifiers: Encounter type: initial encounter Fracture alignment: displaced Qualified Code(s): S72.22XA - Displaced subtrochanteric fracture of left femur, initial encounter for closed fracture (3) Contact dermatitis: Attestations Medical Necessity Statement*: Per hospitalist team Coding Level of Care Code Acute Code for [facility] Fwd Diagnoses S/P ORIF (open reduction internal fixation) fracture Z98.890; Z87.81 Closed displaced subtrochanteric fracture of left femur, initial encounter S72.22XA Encounter type: initial encounter Fracture alignment: displaced Contact dermatitis L25.9
[2024-05-21 13:32] LABS: Digoxin 0.9 ng/mL (0.6-1.2); Magnesium 2.1 mg/dL (1.7-2.3)
[2024-05-21 13:33] LABS: Alanine Aminotransferase 13 U/L (0-33); Albumin Level 3.4 g/dL (3.5-5.2); Alkaline Phosphatase 69 U/L (35-105); Anion Gap 17.2 (5-19); Aspartate Amino Transferase 25 U/L (0-32); Blood Urea Nitrogen 27 mg/dL (8-23); Calcium 8.8 mg/dL (8.5-10.5); Carbon Dioxide 25 mmol/L (22-29); Chloride 99 mmol/L (98-107); Creatinine Clr Calc Pharmacy 85.6781; Globulin 3.2 g/dL (1.3-4.6); Glomerular Filtration Rate 71.1 mL/min (90-130); Glucose 156 mg/dL (65-115); Osmolality Calculated 292 mOsm/kg (285-295); Potassium 4.2 mmol/L (3.5-5.1); Sodium 137 mmol/L (136-145); Total Bilirubin 0.6 mg/dL (0.15-1.2); Total Protein 6.6 g/dL (6.6-8.7)
[2024-05-21 14:03] LABS: SARS Covid-2 Antigen negative (Negative)
== END 2024-05-21 16:00 | disposition skilled nursing facility (03) | DRG 481 ==
LOC: ER 18:55 → MEDSURG 19:03
PROVIDERS: Internal Medicine; Specialist; Student in an Organized Health Care Education/Training Program; Admitting Provider Internal Medicine; Emergency Provider Emergency Medicine; PCP Family Medicine; Visit Provider Student in an Organized Health Care Education/Training Program
PROC: 0QS736Z Reposition Left Upper Femur with Intramedullary Internal Fixation Device, Percutaneous Approach (ICD-10-PCS; principal; 2024-05-17 08:00)
DX: S72.142A Displaced intertrochanteric fracture of left femur, initial encounter for closed fracture (principal); D62 Acute posthemorrhagic anemia; W18.30XA Fall on same level, unspecified, initial encounter; I48.0 Paroxysmal atrial fibrillation; I12.9 Hypertensive chronic kidney disease with stage 1 through stage 4 chronic kidney disease, or unspecified chronic kidney disease; E11.22 Type 2 diabetes mellitus with diabetic chronic kidney disease; N18.9 Chronic kidney disease, unspecified; I25.10 Atherosclerotic heart disease of native coronary artery without angina pectoris; G40.909 Epilepsy, unspecified, not intractable, without status epilepticus; G47.33 Obstructive sleep apnea (adult) (pediatric); E78.5 Hyperlipidemia, unspecified; L25.9 Unspecified contact dermatitis, unspecified cause; R00.1 Bradycardia, unspecified; R09.02 Hypoxemia; J44.9 Chronic obstructive pulmonary disease, unspecified; R23.1 Pallor; Z79.84 Long term (current) use of oral hypoglycemic drugs; Z90.49 Acquired absence of other specified parts of digestive tract; Z90.411 Acquired partial absence of pancreas; Z90.81 Acquired absence of spleen; Z87.891 Personal history of nicotine dependence
CPT/HCPCS: 36415; 36416; 51702; 71045; 73502; 73552; 76000; 80048; 80053; 80162; 80503; 81003; 82607; 82746; 82962; 83540; 83550; 83735; 84443; 84484; 85014; 85018; 85025; 85610; 86850; 86870; 86900; 86902; 86920; 86927; 87426; 93005; 96372; 96374; 97110; 97161; 97167; 97530; 97535; 99285; C1713; J0131; J0330; J0690; J1100; J1160; J1756; J1815; J1885; J1940; J2060; J2371; J2405; J2704; J2710; J3010; J3370; J3490; J7030; J7050; P9016; P9017; P9045

== ENCOUNTER → 2024-06-01 09:12 | Outpatient (BNVA) | payer MEDICARE, MEDICAID, SELFPAY | PROVIDERS: PCP Family Medicine; Visit Provider Nurse Practitioner | DX: Z98.890 Other specified postprocedural states (principal); S72.302D Unspecified fracture of shaft of left femur, subsequent encounter for closed fracture with routine healing; S72.142D Displaced intertrochanteric fracture of left femur, subsequent encounter for closed fracture with routine healing; X58.XXXD Exposure to other specified factors, subsequent encounter | CPT/HCPCS: 99024 ==

== ENCOUNTER → 2024-06-26 09:57 | Outpatient (BNVA) | payer MEDICARE, MEDICAID, SELFPAY | PROVIDERS: PCP Family Medicine; Visit Provider Nurse Practitioner | DX: Z98.890 Other specified postprocedural states; S72.142D Displaced intertrochanteric fracture of left femur, subsequent encounter for closed fracture with routine healing; S72.342D Displaced spiral fracture of shaft of left femur, subsequent encounter for closed fracture with routine healing; Z87.81 Personal history of (healed) traumatic fracture; X58.XXXD Exposure to other specified factors, subsequent encounter | CPT/HCPCS: 73502; 99024 ==

== ENCOUNTER → 2024-07-03 10:45 | Outpatient (BNVA) | payer MEDICARE, MEDICAID, SELFPAY | PROVIDERS: PCP Family Medicine; Visit Provider Internal Medicine | DX: E11.59 Type 2 diabetes mellitus with other circulatory complications (principal); E11.9 Type 2 diabetes mellitus without complications; E78.5 Hyperlipidemia, unspecified; I10 Essential (primary) hypertension; M85.80 Other specified disorders of bone density and structure, unspecified site | CPT/HCPCS: 99214 ==

== ENCOUNTER → 2024-07-24 11:30 | Outpatient (BNVA) | payer MEDICARE, MEDICAID, SELFPAY | PROVIDERS: PCP Family Medicine; Visit Provider Nurse Practitioner | DX: S72.142D Displaced intertrochanteric fracture of left femur, subsequent encounter for closed fracture with routine healing (principal); Z98.890 Other specified postprocedural states; Z87.81 Personal history of (healed) traumatic fracture; X58.XXXD Exposure to other specified factors, subsequent encounter | CPT/HCPCS: 73502 ==

== ENCOUNTER → 2024-08-14 11:45 | Outpatient (BNVA) | payer MEDICARE, MEDICAID, SELFPAY | PROVIDERS: PCP Family Medicine; Visit Provider Internal Medicine | DX: I48.0 Paroxysmal atrial fibrillation (principal); Z79.01 Long term (current) use of anticoagulants; Z78.9 Other specified health status; I10 Essential (primary) hypertension; E78.5 Hyperlipidemia, unspecified; E11.9 Type 2 diabetes mellitus without complications; Z79.84 Long term (current) use of oral hypoglycemic drugs | CPT/HCPCS: 99214 ==

== ENCOUNTER → 2024-08-24 14:09 | Outpatient (BNVA) | payer MEDICARE, MEDICAID, SELFPAY | PROVIDERS: PCP Family Medicine; Visit Provider Nurse Practitioner | DX: S72.342D Displaced spiral fracture of shaft of left femur, subsequent encounter for closed fracture with routine healing (principal); Z98.890 Other specified postprocedural states; Z87.81 Personal history of (healed) traumatic fracture; S72.142D Displaced intertrochanteric fracture of left femur, subsequent encounter for closed fracture with routine healing; X58.XXXD Exposure to other specified factors, subsequent encounter | CPT/HCPCS: 73502; 99213 ==

== ENCOUNTER → 2024-08-31 13:37 | Outpatient (BNVA) | payer MEDICARE, MEDICAID, SELFPAY | PROVIDERS: PCP Family Medicine; Visit Provider Nurse Practitioner | DX: M17.0 Bilateral primary osteoarthritis of knee (principal) | CPT/HCPCS: 20610; 73560; 73565; 99214; J1100; J2795; J3301; J9999 ==

== ENCOUNTER → 2024-09-07 13:24 | Outpatient (BNVA) | payer MEDICARE, MEDICAID, SELFPAY | PROVIDERS: PCP Family Medicine; Visit Provider Psychiatry & Neurology Neurology | DX: G40.919 Epilepsy, unspecified, intractable, without status epilepticus (principal); B02.30 Zoster ocular disease, unspecified | CPT/HCPCS: G0463 ==

== ENCOUNTER 2024-09-11 13:01 | Outpatient (CLI) | payer MEDICARE, MEDICAID, SELFPAY ==
--- NOTE | 2024-09-11 | MM_ITS ---
WS: [id number] BILATERAL 3D TOMOSYNTHESIS DIGITAL SCREENING MAMMOGRAPHY WITH CAD CLINICAL INFORMATION: ANNUAL SCREENING HISTORY: Screening mammogram. No current complaints. COMPARISON: 2023 TECHNIQUE: Bilateral CC and MLO views. FINDINGS: Scattered fibroglandular densities bilaterally. No suspicious focal mass, asymmetry, calcifications, or architectural distortion. No evidence of malignancy. Incidental punctate and lucent centered calcifications. Vascular calcifications. MM/MM scr tomosynthesis 31003 IMPRESSION: DENSITY: There are scattered areas of fibroglandular density. BI-RADS: 2 - Benign. FOLLOW UP: 1 Year Follow-up Recommend return to annual screening mammography.
== END 2024-09-11 13:02 | disposition home or self-care (01) ==
PROVIDERS: PCP Family Medicine; Visit Provider Family Medicine
DX: Z12.31 Encounter for screening mammogram for malignant neoplasm of breast (principal); R92.323 Mammographic fibroglandular density, bilateral breasts; R92.1 Mammographic calcification found on diagnostic imaging of breast
CPT/HCPCS: 77063; 77067

== ENCOUNTER → 2024-09-21 13:00 | Outpatient (BNVA) | payer MEDICARE, MEDICAID, SELFPAY | PROVIDERS: PCP Family Medicine; Visit Provider Nurse Practitioner | DX: M17.12 Unilateral primary osteoarthritis, left knee (principal); Z71.89 Other specified counseling | CPT/HCPCS: 20610; 99213; J1100; J2795; J3301; J9999 ==

== ENCOUNTER → 2024-09-23 10:41 | Outpatient (BNVA) | payer MEDICARE, MEDICAID, SELFPAY | PROVIDERS: PCP Family Medicine; Visit Provider Nurse Practitioner Family | DX: L57.8 Other skin changes due to chronic exposure to nonionizing radiation (principal); L81.4 Other melanin hyperpigmentation; D22.5 Melanocytic nevi of trunk; L82.1 Other seborrheic keratosis; S00.80XA Unspecified superficial injury of other part of head, initial encounter; L82.0 Inflamed seborrheic keratosis; R20.8 Other disturbances of skin sensation; L53.8 Other specified erythematous conditions; R58 Hemorrhage, not elsewhere classified; L29.89 Other pruritus; Z78.9 Other specified health status; X58.XXXA Exposure to other specified factors, initial encounter | CPT/HCPCS: 17110; 99213 ==

== ENCOUNTER 2024-10-23 13:29 | Outpatient (CLI) | payer OTHER, MEDICAID, SELFPAY ==
--- NOTE | 2024-10-23 13:34 | XR_ITS ---
WS: [id number] DEXA (DUAL ENERGY X-RAY ABSORPTIOMETRY) Bone mineral density was performed using a Migoa machine. HISTORY: OSTEOPOROSIS COMPARISON: 08/13/2022 Left forearm BMD: 1.015 g/cm2. T score: 1.6 Z score: 3.4 Total hip BMD: Right: 0.713. T score: -2.3 Z score: -1.7 10 year probability of a major osteoporotic fracture is 11.7%. Compared to the prior study from 08/13/2022. LEFT forearm bone mineral density has increased by 3.0%. RIGHT hip bone mineral density has decreased by 13.5%. XR/XR DEXA axial skeleton* 40395 IMPRESSION: OSTEOPENIA based upon the WHO classification for females. Significant decrease in bone mineral density within the RIGHT hip since the vincent or study. Significant increase in bone mineral density within the LEFT forearm since the prior study.
== END 2024-10-23 13:30 | disposition home or self-care (01) ==
LOC: RAD 13:30
PROVIDERS: PCP Family Medicine; Visit Provider Family Medicine
DX: M85.80 Other specified disorders of bone density and structure, unspecified site (principal)
CPT/HCPCS: 77080

== ENCOUNTER → 2024-10-30 12:20 | Outpatient (BNVA) | payer MEDICARE, MEDICAID, SELFPAY | PROVIDERS: PCP Family Medicine; Visit Provider Internal Medicine | DX: E11.59 Type 2 diabetes mellitus with other circulatory complications (principal); E78.5 Hyperlipidemia, unspecified; I10 Essential (primary) hypertension | CPT/HCPCS: 99214 ==

== ENCOUNTER → 2024-11-09 13:33 | Outpatient (BNVA) | payer MEDICARE, MEDICAID, SELFPAY | PROVIDERS: PCP Family Medicine; Visit Provider Nurse Practitioner | DX: Z98.890 Other specified postprocedural states (principal); Z87.81 Personal history of (healed) traumatic fracture | CPT/HCPCS: 73502; 99213 ==

== ENCOUNTER → 2025-02-04 11:38 | Outpatient (BNVA) | payer MEDICARE, MEDICAID, SELFPAY | PROVIDERS: PCP Family Medicine; Visit Provider Internal Medicine | DX: E11.59 Type 2 diabetes mellitus with other circulatory complications (principal); E78.5 Hyperlipidemia, unspecified; I10 Essential (primary) hypertension | CPT/HCPCS: 99214 ==

== ENCOUNTER → 2025-02-15 14:15 | Outpatient (BNVA) | payer OTHER, MEDICAID, SELFPAY | PROVIDERS: PCP Family Medicine; Visit Provider Nurse Practitioner | DX: Z98.890 Other specified postprocedural states (principal); Z87.81 Personal history of (healed) traumatic fracture | CPT/HCPCS: 73502; 99214 ==

== ENCOUNTER → 2025-02-24 15:09 | Outpatient (BNVA) | payer OTHER, MEDICAID, SELFPAY | PROVIDERS: PCP Family Medicine; Visit Provider Internal Medicine | DX: I12.9 Hypertensive chronic kidney disease with stage 1 through stage 4 chronic kidney disease, or unspecified chronic kidney disease (principal); N18.9 Chronic kidney disease, unspecified; Z79.01 Long term (current) use of anticoagulants; I48.0 Paroxysmal atrial fibrillation; E11.22 Type 2 diabetes mellitus with diabetic chronic kidney disease; Z79.84 Long term (current) use of oral hypoglycemic drugs | CPT/HCPCS: 99214 ==

== ENCOUNTER → 2025-05-14 10:47 | Outpatient (BNVA) | payer OTHER, MEDICAID, SELFPAY | PROVIDERS: PCP Family Medicine; Visit Provider Nurse Practitioner | DX: Z47.89 Encounter for other orthopedic aftercare (principal); Z87.81 Personal history of (healed) traumatic fracture | CPT/HCPCS: 73502; 99213 ==